=== PATIENT | female | born 1965 | race Hispanic/Latino ===

== ENCOUNTER 2019-07-19 20:02 | Emergency (ER) | payer SELFPAY ==
[2019-07-19 21:01] LABS: Absolute Lymphocytes (CBC) 2.6 K/uL (0.7-4.9); Basophils % 0.7 % (0-1.3); Hematocrit 42.4 % (36.0-45.0); Lymphocytes % 30.1 % (15.3-44.8); MPV 8.6 fL (7.6-11.3)
[2019-07-19 21:28] LABS: Albumin 3.7 g/dL (3.4-5.0); Bilirubin Direct 0.1 mg/dL (0-0.2); Bilirubin Total 0.5 mg/dL (0.2-1.0); Potassium 3.9 mmol/L (3.5-5.1); Protein, Total 7.8 g/dL (6.4-8.2)
[2019-07-19] MEDS ORDERED: SIMETHICONE 80 MG TAB ONE (21:49)
[2019-07-19 22:10] LABS: Urine Blood NEGATIVE (NEG); Urine Glucose NEGATIVE (NEG); Urine Protein NEGATIVE (NEG)
[2019-07-19 23:02] LABS: Urine Bacteria <20 /HPF (<20); Urine RBC NONE SEEN /HPF (NONE SEEN)
[2019-07-19 23:03] LABS: Urine Culture Reflex Order NOT NEEDED
--- NOTE | 2019-07-19 23:20 | EDPHYS ---
Physician Documentation [facility] Name: Yuridia Wynne Age: 54 yrs Sex: Female : 1965 Arrival Date: 07/19/2019 Time: 20:07 Bed 8 Private MD: ED Physician Jeancarlos Carbajal HPI: 07/19 21:30 This 54 yrs old Female presents to ER via Ambulatory with complaints of Abdominal Pain, snw Back Pain. 21:30 The patient presents with abdominal pain in the upper abdomen. Onset: The snw symptoms/episode began/occurred suddenly, today. The symptoms radiate to back. Associated signs and symptoms: Pertinent positives: nausea, Pertinent negatives: anorexia, blood in stools, fever, vomiting, vomiting blood. The symptoms are described as crampy. Severity of pain: At its worst the pain was moderate. The patient has not experienced similar symptoms in the past. The patient has not recently seen a physician. Hx of cholecystectomy. 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 - Coronavirus screen:: The patient has NOT traveled to [place] in the past 14 days. - Social history:: Smoking status: Patient denies any tobacco usage or history of. - Ebola Screening: : No symptoms or risks identified at this time. ROS: 21:29 Constitutional: Negative for fever, chills, and weight loss, Eyes: Negative for injury, snw pain, redness, and discharge, ENT: Negative for injury, pain, and discharge, Neck: Negative for injury, pain, and swelling, Cardiovascular: Negative for chest pain, palpitations, and edema, Respiratory: Negative for shortness of breath, cough, wheezing, and pleuritic chest pain, : Negative for injury, bleeding, discharge, and swelling, MS/Extremity: Negative for injury and deformity, Skin: Negative for injury, rash, and discoloration, Neuro: Negative for headache, weakness, numbness, tingling, and seizure, Psych: Negative for depression, anxiety, suicide ideation, homicidal ideation, and hallucinations. 21:29 Abdomen/GI: Positive for abdominal pain, nausea, Negative for vomiting, diarrhea, hematemesis, black/tarry stool. 21:29 Back: Positive for radiated pain. Exam: 21:29 Constitutional: This is a well developed, well nourished patient who is awake, alert, snw and in no acute distress. Head/Face: Normocephalic, atraumatic. Eyes: Pupils equal round and reactive to light, extra-ocular motions intact. Lids and lashes normal. Conjunctiva and sclera are non-icteric and not injected. Cornea within normal limits. Periorbital areas with no swelling, redness, or edema. ENT: Nares patent. No nasal discharge, no septal abnormalities noted. Tympanic membranes are normal and external auditory canals are clear. Oropharynx with no redness, swelling, or masses, exudates, or evidence of obstruction, uvula midline. Mucous membranes moist. Neck: Trachea midline, no thyromegaly or masses palpated, and no cervical lymphadenopathy. Supple, full range of motion without nuchal rigidity, or vertebral point tenderness. No Meningismus. Chest/axilla: Normal chest wall appearance and motion. Nontender with no deformity. No lesions are appreciated. Cardiovascular: Regular rate and rhythm with a normal S1 and S2. No gallops, murmurs, or rubs. Normal PMI, no JVD. No pulse deficits. Respiratory: Lungs have equal breath sounds bilaterally, clear to auscultation and percussion. No rales, rhonchi or wheezes noted. No increased work of breathing, no retractions or nasal flaring. Back: No spinal tenderness. No costovertebral tenderness. Full range of motion. Skin: Warm, dry with normal turgor. Normal color with no rashes, no lesions, and no evidence of cellulitis. MS/ Extremity: Pulses equal, no cyanosis. Neurovascular intact. Full, normal range of motion. Neuro: Awake and alert, GCS 15, oriented to person, place, time, and situation. Cranial nerves II-XII grossly intact. Motor strength 5/5 in all extremities. Sensory grossly intact. Cerebellar exam normal. Normal gait. Psych: Awake, alert, with orientation to person, place and time. Behavior, mood, and affect are within normal limits. 21:29 Abdomen/GI: Inspection: obese Bowel sounds: normal, Palpation: mild abdominal tenderness, in the epigastric area. Vital Signs: 20:21 BP 157 / 94; Pulse 96; Resp 18; Temp 97.4; Pulse Ox 100% ; Weight 117.93 kg; Height 5 ea ft. 4 in. (162.56 cm); Pain 10/10; 21:50 BP 149 / 79 RA (auto/lg); Pulse 76; Pulse Ox 100% on R/A; jp3 22:33 BP 134 / 88; Pulse 78; Resp 18; Pulse Ox 98% ; ea 23:30 BP 128 / 90; Pulse 76; Resp 18; Temp 97.6; Pulse Ox 100% on R/A; ea 20:21 Body Mass Index 44.63 (117.93 kg, 162.56 cm) ea MDM: 20:51 Patient medically screened. [place] 23:46 Data reviewed: vital signs, nurses notes, lab test result(s). Data interpreted: Pulse snw oximetry: on room air is 98 %. Interpretation: normal. Counseling: I had a detailed discussion with the patient and/or guardian regarding: the historical points, exam findings, and any diagnostic results supporting the discharge/admit diagnosis, the presence of at least one elevated blood pressure reading (>120/80) during this emergency department visit, lab results, the need for outpatient follow up, for definitive care, to return to the emergency department if symptoms worsen or persist or if there are any questions or concerns that arise at home. Physician consultation:. Special discussion: Based on the patient's Hx, exam, and Dx evaluation, there is no indication for emergent surgery or inpatient Tx. It is understood by the patient/guardian that if the Sx's persist or worsen they need to return immediately for re-evaluation. I have referred the patient to see his PCP for further evaluation of high blood pressure. Based on the history and exam findings, there is no indication for further emergent testing or inpatient evaluation. I discussed with the patient/guardian the need to see the dragger out for further evaluation of the symptoms. I discussed with the patient/guardian the need to see the primary care provider for further evaluation of the symptoms. 07/19 20:30 Order name: Basic Metabolic Panel; Complete Time: 21:32 ea 07/19 20:30 Order name: CBC with Diff; Complete Time: 21:06 07/19 20:30 Order name: Creatinine for Radiology; Complete Time: 21:27 07/19 20:30 Order name: Hepatic Function; Complete Time: 21:32 07/19 20:30 Order name: Lipase; Complete Time: 21:32 07/19 21:19 Order name: Urine Culture [facility] 07/19 20:30 Order name: IV Saline Lock; Complete Time: 20:51 07/19 20:30 Order name: Labs collected and sent; Complete Time: 20:51 07/19 21:19 Order name: Urine Microscopic Only; Complete Time: 23:05 [facility] 07/19 21:19 Order name: Urine Dipstick-Ancillary (obtain specimen); Complete Time: 21:47 [facility] 07/19 21:48 Order name: Urine Dipstick--Ancillary (enter results); Complete Time: 22:14 cm6 Administered Medications: 21:47 Drug: Simethicone 240 mg Route: PO; jb4 23:00 Follow up: Response: No adverse reaction ea 23:24 Drug: CarafATE 1 grams Route: PO; ea 23:40 Follow up: Response: No adverse reaction ea Disposition: 07/20 08:57 Co-signature as Attending Physician, Jeancarlos Carbajal MD I agree with the assessment and [facility] plan of care. Disposition: 07/19/19 23:20 Discharged to Home. Impression: Upper abdominal pain, unspecified. - Condition is Stable. - Discharge Instructions: Abdominal Pain, Adult, Biliary Colic, Adult, Fat and Cholesterol Restricted Diet, Hypertension, Rehydration, Adult. - Prescriptions for Bentyl 20 mg Oral Tablet - take 1 tablet by ORAL route every 6 hours As needed; 20 tablet. Nexium 20 mg Oral Capsule - take 1 capsule by ORAL route once daily; 20 capsule. promethazine 25 mg Oral Tablet - take 1 tablet by ORAL route every 6 hours As needed; 20 tablet. - Work release form, Medication Reconciliation Form, Thank You Letter, Antibiotic Education, Prescription Opioid Use form. - Follow up: Emergency Department; When: As needed; Reason: Worsening of condition. Follow up: Private Physician; When: 1 - 2 days; Reason: Recheck today's complaints, Continuance of care, Re-evaluation by your physician. Signatures: Dispatcher [employer] Jeancarlos iDa MD MD cha Therrien Thais, ALL ROUND LOGGER-C ALL ROUND LOGGER-Csnw Francisco Munoz, RN RN jb4 Cindy Son, RN RN ea Corrections: (The following items were deleted from the chart) 00:02 07/19 23:20 07/19/2019 23:20 Discharged to Home. Impression: Upper abdominal pain, ea unspecified. Condition is Stable. Forms are Medication Reconciliation Form, Thank You Letter, Antibiotic Education, Prescription Opioid Use. Follow up: Emergency Department; When: As needed; Reason: Worsening of condition. Follow up: Private Physician; When: 1 - 2 days; Reason: Recheck today's complaints, Continuance of care, Re-evaluation by your physician. snw
--- NOTE | 2019-07-19 23:20 | ER ---
Nurse's Notes [facility] Name: Yuridia Wynne Age: 54 yrs Sex: Female : 1965 Arrival Date: 07/19/2019 Time: 20:07 Bed 8 Private MD: Diagnosis: Upper abdominal pain, unspecified Presentation: 07/19 20:18 Presenting complaint: Patient states: Reports she started having epigastric pain that ea travels to the back at around 5 PM. Pt reports nausea. Transition of care: patient was not received from another setting of care. Onset of symptoms was July 19, 2019. Risk Assessment: Do you want to hurt yourself or someone else? Patient reports no desire to harm self or others. Initial Sepsis Screen: Does the patient meet any 2 criteria? No. Patient's initial sepsis screen is negative. Does the patient have a suspected source of infection? No. Patient's initial sepsis screen is negative. Care prior to arrival: None. 20:18 Method Of Arrival: Ambulatory ea 20:18 Acuity: MEDINA 3 ea Triage Assessment: 20:23 General: Appears uncomfortable, Behavior is calm, cooperative, appropriate for age. ea Pain: Complains of pain in epigastric area Pain radiates to thoracic area. Neuro: Level of Consciousness is awake, alert, obeys commands, Oriented to person, place, time. Cardiovascular: Patient's skin is warm and dry. Respiratory: Airway is patent Respiratory effort is even, unlabored, Respiratory pattern is regular, symmetrical. 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 - Coronavirus screen:: The patient has NOT traveled to [place] in the past 14 days. - Social history:: Smoking status: Patient denies any tobacco usage or history of. - Ebola Screening: : No symptoms or risks identified at this time. Screenin:19 Abuse screen: Denies threats or abuse. Nutritional screening: No deficits noted. ea Tuberculosis screening: No symptoms or risk factors identified. Fall Risk None identified. Assessment: 20:41 General: Appears uncomfortable. Pain: Complains of pain in epigastric area. Neuro: ea Level of Consciousness is awake, alert, obeys commands, Oriented to person, place, time, situation. Cardiovascular: Patient's skin is warm and dry. Respiratory: Airway is patent Respiratory effort is even, unlabored, Respiratory pattern is regular, symmetrical. GI: Bowel sounds present X 4 quads. Abd is soft and non tender X 4 quads. Derm: Skin is pink, warm \T\ dry. 21:45 Reassessment: Patient appears in no apparent distress at this time. Patient and/or jb4 family updated on plan of care and expected duration. Pain level reassessed. Patient is alert, oriented x 3, equal unlabored respirations, skin warm/dry/pink. 23:55 Reassessment: Patient and/or family updated on plan of care and expected duration. Pain ea level reassessed. Patient is alert, oriented x 3, equal unlabored respirations, skin warm/dry/pink. Discharge instruction given to patient, verbalized the understanding of instruction. Pt left ED ambulatory accompanied by family, pt tolerating well. Vital Signs: 20:21 BP 157 / 94; Pulse 96; Resp 18; Temp 97.4; Pulse Ox 100% ; Weight 117.93 kg; Height 5 ea ft. 4 in. (162.56 cm); Pain 10/10; 21:50 BP 149 / 79 RA (auto/lg); Pulse 76; Pulse Ox 100% on R/A; jp3 22:33 BP 134 / 88; Pulse 78; Resp 18; Pulse Ox 98% ; ea 23:30 BP 128 / 90; Pulse 76; Resp 18; Temp 97.6; Pulse Ox 100% on R/A; ea 20:21 Body Mass Index 44.63 (117.93 kg, 162.56 cm) ea ED Course: 20:07 Patient arrived in ED. jg7 20:18 Cindy Son, RN is Primary Nurse. ea 20:19 Triage completed. ea 20:22 Arm band placed on right wrist. Patient placed in an exam room, on a stretcher, on ea pulse oximetry. 20:22 Patient has correct armband on for positive identification. Bed in low position. Call ea light in reach. Side rails up X 1. 20:50 [facility]ais Patel [facility]C [facility]. snw 20:50 Jeancarlos Carbajal MD is Attending Physician. snw 20:50 Inserted saline lock: 20 gauge in left antecubital area, using aseptic technique. Blood jp3 collected. Patient maintains SpO2 saturation greater than 95% on room air. 20:50 Initial lab(s) drawn, by me, sent to lab. jp3 21:47 Urine Microscopic Only Sent. jp3 21:47 Urine Culture Sent. jp3 23:23 No provider procedures requiring assistance completed. ea 23:45 IV discontinued, intact, bleeding controlled, No redness/swelling at site. Pressure ea dressing applied. Administered Medications: 21:47 Drug: Simethicone 240 mg Route: PO; jb4 23:00 Follow up: Response: No adverse reaction ea 23:24 Drug: CarafATE 1 grams Route: PO; ea 23:40 Follow up: Response: No adverse reaction ea Outcome: 23:20 Discharge ordered by . snw 23:55 Discharged to home ambulatory, with family. ea 23:55 Condition: stable 23:55 Discharge instructions given to patient, Instructed on discharge instructions, follow up and referral plans. medication usage, Demonstrated understanding of instructions, follow-up care, medications, Prescriptions given X 3. 07/20 00:02 Patient left the ED. ea Signatures: Thais Patel FNP-C FNP-Csnw Francisco Munoz, RN RN jb4 Cindy Son, ROOSEVELT RN Karson Cuevas jp3 Mirta Dayg7
[2019-07-19] MEDS ORDERED: SUCRALFATE 1 GM TABLET ONE (23:25)
[2019-07-20 01:51] VITALS: BP 134/88; O2SAT 98
== END 2019-07-20 00:02 | disposition home or self-care (01) ==
LOC: ER 20:02
DX: E03.9 Hypothyroidism, unspecified (principal)
CPT/HCPCS: 36415; 80048; 80076; 81003; 81015; 83690; 85025; 87086; 87088; 99284

== ENCOUNTER 2023-05-24 03:21 | Inpatient (IN) | payer OTHER, SELFPAY ==
--- OUTSIDE RECORDS SUMMARY | 2023-05-24 03:24 | XMS REPORT | Continuity of Care Document ---
Author Name Unknown Address [address] [facility] [place] [address] [facility] thconnect Address [address] [facility] [place] [address] Care Team Providers Care Sales Floor Manager Name Role Phone [address] Primary Care Physician KARIN Trotter K.HPaz Attending Clinician Eli Love MD, Karin K.HPaz Attending Clinician [phone] Doctor Unassigned, [place] Attending Clinician U navailable Allergies, Adverse Reactions, Alerts Allergy Name Allergy Type Status Severity Reaction(s) Onset Date Inactive Date Treating Clinician Comments Source NO KNOWN ALLERGIE S Drug Class Active [facility] Social History Social Habit Start Date Stop Date Quantity Comments Source Exposure to SARS-CoV-2 (event) 2022-09-14 00:00:00 2022-09-24 14:16:00 Not sure [facility] Sex Assigned At 1965 00:00:00 1965 00:00:00 [facility] Smoking Status Start Date Stop Date Source Tobacco smoking consumption unknown [facility] Medications Ordered Medication Name Filled Medication Name Start Date Stop Date Current Medication? Ordering Clinician Indication Dosage Frequency Signature (SIG) Comments Components Source hydroCHLORO thiazide 12.5 mg capsule 09-24 14:45: 53 Yes [id number] 12.5mg Take 1 capsule by mouth in the morning. [facility] levothyroxi ne (UNITHROID) 75 mcg tablet 09-24 14:45: 53 Yes [id number] 75ug Take 1 tablet by mouth every morning. [facility] escitalopra m oxalate 10 mg tablet 09-24 14:45: 53 Yes [id number] 10mg Take 1 tablet by mouth in the morning. [facility] lisinopriL 10 mg tablet 09-24 14:45: 53 Yes [id number] 10mg Take 1 tablet by mouth in the morning. [facility] hydroCHLORO thiazide 12.5 mg capsule 09-24 14:45: 53 Yes [id number] 12.5mg Take 1 capsule by mouth in the morning. [facility] levothyroxi ne (UNITHROID) 75 mcg tablet 09-24 14:45: 53 Yes [id number] 75ug Take 1 tablet by mouth every morning. [facility] escitalopra m oxalate 10 mg tablet 09-24 14:45: 53 Yes [id number] 10mg Take 1 tablet by mouth in the morning. [facility] lisinopriL 10 mg tablet 09-24 14:45: 53 Yes [id number] 10mg Take 1 tablet by mouth in the morning. [facility] metFORMIN 500 mg tablet 08-06 00:00: 00 Yes [id number] 500mg Take 1 tablet by mouth in the morning. [facility] metFORMIN 500 mg tablet 08-06 00:00: 00 Yes [id number] 500mg Take 1 tablet by mouth in the morning. [facility] Vital Signs Vital Name Observation Time Observation Value Comments S marcos Systolic blood pressure 2022-09-24 19:40:00 111 mm[Hg] [facility] Diastolic blood pressure 2022-09-24 19:40:00 59 mm[Hg] [facility] Heart rate 2022-09-24 19:40:00 88 /min [facility] Body height 2022-09-24 19:40:00 162.6 cm [facility] Body weight 2022-09-24 19:40:00 120.112 kg [facility] BMI 2022-09-24 19:40:00 45.45 kg/m2 [facility] Oxygen saturation in Arterial blood by Pulse oximetry 2022-09-24 19:40:00 95 /min [facility] Procedures Procedure Date / Time Performed Performing Clinicia n Source ASSIGNMENT OF BENEFITS 2022-09-24 19:20:40 Docto r Unassigned, [place] [facility] Encounters Start Date/Time End Date/Time Encounter Type Admission Type Attending [facility] Facility Care Department Encounter ID Source 2023-04-16 08:03:33 2023-04-16 08:03:[address] [facility] [id number] Feliciano Bhatti 2023-02-27 11:01:43 2023-02-27 11:01:[address] [facility] [id number] Feliciano Richards Davy 2023-02-13 08:56:53 2023-02-13 08:56:[address] [facility] [id number] Feliciano Richards Davy 2022-12-25 08:25:14 2022-12-25 08:25:[address] [facility] [id number] Feliciano Richards Davy 2022-12-12 14:07:38 2022-12-12 14:07:[address] [facility] [id number] Feliciano Richards Davy 2022-12-11 13:31:49 2022-12-11 13:31:[address] [facility] [id number] Feliciano Bhatti 2022-09-25 14:30:00 2022-09-25 14:30:00 Outpatient KARIN SIMMS [facility] [id number] [facility] 2022-09-24 14:30:00 2022-09-24 15:23:40 Office Visit Karin Love [facility] [id number] [facility] 2022-09-24 14:30:00 2022-09-24 15:23:40 Outpatient KARIN SIMMS [facility] [id number] [facility] 2022-09-24 00:00:00 2022-09-24 00:00:00 Orders Only Doctor Unassigned, [place] [facility] [id number] [facility] 2022-08-11 09:46:59 2022-08-11 09:46:59 Outpatient [facility] [id number] Feliciano Bhatti 2022-08-04 11:47:16 2022-08-04 11:47:16 Outpatient [facility] [id number] Feliciano Richards Davy 2022-07-30 14:58:59 2022-07-30 14:58:59 Outpatient [facility] [id number] Feliciano Bhatti 2022-07-28 08:34:44 2022-07-28 08:34:44 Outpatient [facility] [id number] Feliciano Bhatti 2022-06-18 15:47:46 2022-06-18 15:47:46 Outpatient [facility] [id number] Feliciano Bhatti 2022-05-14 16:55:57 2022-05-14 16:55:57 Outpatient [facility] [id number] Feliciano Bhatti 2022-05-06 16:04:30 2022-05-06 16:04:30 Outpatient [facility] [id number] Feliciano Bhatti Results Test Description Test Time Test Comments Results Result Co mments Source HEMOGLOBIN [id number] 05:40:43* Test Item Value Reference Range Interpretation Comme nts HEMOGLOBIN A1c (test code = 21055) 6.6 % 4.2-5.6 H [employer] GUIDELINES FOR HGB A1C: PREDIABETES/INCREASED RISK . . . . . . . 5.7-6.4% DIAGNOSIS OF DIABETES . . . . . . . . . >=6.5% WITH CONFIRMATION OR APPROPRIATE SYMPTOMS NOTE: ASSAY MAY BE AFFECTED BY HEMOGLOBINOPATHIES (SICKLE CELL ANEMIA, S-C DISEASE, OTHERS) OR ARTIFICIALLY LOWERED BY DECREASED RED CELL SURVIVAL (HEMOLYTIC ANEMIAS, BLOOD LOSS, ETC.). CONSIDER ALTERNATE TESTING OR LABORATORY CONSULTATION. UNLESS OTHERWISE INDICATED, ALL TESTING PERFORMED AT [facility] [address] [place] [address] IMPROVEMENT ENGINEER: KENNY FOWLER M.D. CLIA NUMBER [id number] [facility] [place]. [id number] TSH, THIRD [id number] 04:49:30* Test Item Value Reference Range Interpretation Comme nts TSH, THIRD GENERATION (test code = 2821) 2.390 UIU/ML 0.400-4.100 LIPID [id number] 04:45:56* Test Item Value Reference Range Interpretation Comme nts CHOLESTEROL (test code = 2210) 135 MG/DL <200 TRIGLYCERIDES (test code = 2232) 103 MG/DL <150 HDL CHOLESTEROL (test code = 2220) 38 MG/DL >39 L CALC LDL CHOL (test code = 2237) 78 MG/DL <100 NOTE: CALCULATED LDL IS BASED ON KAYLYNN-FIGUEREDO METHOD WHICHINCLUDES ADJUSTABLE TRIGLYCERIDE:VLDL CHOLESTEROL RATIO.THIS FACTOR VARIES BY MEASURED TRIGLYCERIDE AND NON-HDLCHOLESTEROL CONCENTRATIONS WITH INCREASED CALCULATED LDL SEENIN HIGHER TRIGLYCERIDE OR LOWER NON-HDL SPECIMENS. FOR MOREINFORMATION, SEE CLIENT ANNOUNCEMENT AT [email or web address] /CalcLDL-[email or web address] RISK RATIO LDL/HDL (test code = 2238) 2.05 RATIO <3.22 COMPREHENSIVE METABOLIC [id number] 04:45:56* Test Item Value Reference Range Interpretation Comme nts GLUCOSE (test code = 2217) 134 MG/DL 70-99 H BUN (test code = 2208) 12 MG/DL 6-20 CREATININE (test code = 2214) 0.83 MG/DL 0.60-1.30 eGFR (2020 CKD-EPI) (test co de = 99122) 83 ML/MIN/1.73 >60 CALC BUN/CREAT (test code = 2235) 14 RATIO 6-28 SODIUM (test code = 2231) 141 MEQ/L 133-146 POTASSIUM (test code = 2228) 4.4 MEQ/L 3.5-5.4 CHLORIDE (test code = 2215) 102 MEQ/L 95-107 CARBON DIOXIDE (test code = 2206) 28 MEQ/L 19-31 CALCIUM (test code = 2209) 9.2 MG/DL 8.5-10.5 PROTEIN, TOTAL (test code = 222) 7.6 G/DL 6.1-8.3 ALBUMIN (test code = 2201) 4.5 G/DL 3.5-5.2 CALC GLOBULIN (test code = 2240) 3.1 G/DL 1.9-3.7 CALC A/G RATIO (test code = 2234) 1.5 RATIO 1.0-2.6 BILIRUBIN, TOTAL (test code = 2207) 0.5 MG/DL <=1.2 ALKALINE PHOSPHATASE (test code = 2204) 109 U/L 40-136 AST (test code = 2218) 21 U/L 9-40 ALT (test code = 2219) 21 U/L 5-40 NOTE:2022-12-31 06:03:51* Test Item Value Reference Range Interpretation Comme nts NOTE: (test code = 998) (NOTE) IN ACCORDANCE [facility] FEDERAL GUIDELINES REQUIRING ALL VERBAL REQUESTS FOR LABORATORY TESTS TO BE ACCOMPANIED BY WRITTEN AUTHORIZATION WITHIN 30 DAYS OF THIS REQUEST, PLEASE SIGN BELOW AND RETURN A COPY OF THIS REPORT BY FAX TO THE LABORATORY SCANNING DEPARTMENT AT [phone]. PHYSICIAN'S SIGNATURE DATE UNLESS OTHERWISE INDICATED, ALL TESTING PERFORMED AT [facility] [address] [place] [address] IMPROVEMENT ENGINEER: KENNY FOWLER M.D. CLIA NUMBER [id number] [facility] [place]. [id number] TSH, THIRD [id number] 02:05:53* Test Item Value Reference Range Interpretation Comme nts TSH, THIRD GENERATION (test code = 2821) 4.810 UIU/ML 0.400-4.100 H LIPID [id number] 05:14:23* Test Item Value Reference Range Interpretation Comme nts CHOLESTEROL (test code = 2210) 138 MG/DL <200 TRIGLYCERIDES (test code = 2232) 150 MG/DL <150 H HDL CHOLESTEROL (test code = 2220) 37 MG/DL >39 L CALC LDL CHOL (test code = 2237) 76 MG/DL <100 NOTE: CALCULATED LDL IS BASED ON KAYLYNN-FIGUEREDO METHOD WHICHINCLUDES ADJUSTABLE TRIGLYCERIDE:VLDL CHOLESTEROL RATIO.THIS FACTOR VARIES BY MEASURED TRIGLYCERIDE AND NON-HDLCHOLESTEROL CONCENTRATIONS WITH INCREASED CALCULATED LDL SEENIN HIGHER TRIGLYCERIDE OR LOWER NON-HDL SPECIMENS. FOR MOREINFORMATION, SEE CLIENT ANNOUNCEMENT AT [email or web address] /CalcLDL-C RISK RATIO LDL/HDL (test code = 223) 2.05 RATIO <3.22 COMPREHENSIVE METABOLIC [id number] 05:14:23* Test Item Value Reference Range Interpretation Comme nts GLUCOSE (test code = 7) 125 MG/DL 70-99 H BUN (test code = 2207) 13 MG/DL 6-20 CREATININE (test code = 2213) 0.88 MG/DL 0.60-1.30 eGFR (2020 CKD-EPI) (test code = 59413) 77 ML/MIN/1.73 >60 CALC BUN/CREAT (test code = 2234) 15 RATIO 6-28 SODIUM (test code = 2230) 141 MEQ/L 133-146 POTASSIUM (test code = 2227) 5.0 MEQ/L 3.5-5.4 CHLORIDE (test code = 2214) 103 MEQ/L 95-107 CARBON DIOXIDE (test code = 2205) 28 MEQ/L 19-31 CALCIUM (test code = 2208) 9.3 MG/DL 8.5-10.5 PROTEIN, TOTAL (test code = 2228) 6.9 G/DL 6.1-8.3 ALBUMIN (test code = 2201) 4.2 G/DL 3.5-5.2 CALC GLOBULIN (test code = 2240) 2.7 G/DL 1.9-3.7 CALC A/G RATIO (test code = 223) 1.6 RATIO 1.0-2.6 BILIRUBIN, TOTAL (test code = 2206) 0.3 MG/DL See_Comment [Automated me ssage] The system which generated this result transmitted reference range: <=1.2. The reference range was not used to interpret this result as normal/abnormal. ALKALINE PHOSPHATASE (test code = 2203) 95 U/L 40-136 AST (test code = 2218) 19 U/L 9-40 ALT (test code = 2219) 21 U/L 5-40 UNLESS OTHERWISE INDICATED, ALL TESTING PERFORMED AT [facility] [address] [place] [id number] IMPROVEMENT ENGINEER: KENNY FOWLER M.D. CLIA NUMBER [id number] [facility] [place]. [id number] HEMOGLOBIN [id number] 02:49:55* Test Item Value Reference Range Interpretation Comme [facility] HEMOGLOBIN A1c (test code = 74413) 6.6 % 4.2-5.6 H [employer] S [employer]IATION GUIDELINES FOR HGB A1C: PREDIABETES/INCREASED RISK . . . . . . . 5.7-6.4% DIAGNOSIS OF DIABETES . . . . . . . . . >=6.5% WITH CONFIRMATION OR APPROPRIATE SYMPTOMS NOTE: ASSAY MAY BE AFFECTED BY HEMOGLOBINOPATHIES (SICKLE CELL ANEMIA, S-C DISEASE, OTHERS) OR ARTIFICIALLY LOWERED BY DECREASED RED CELL SURVIVAL (HEMOLYTIC ANEMIAS, BLOOD LOSS, ETC.). CONSIDER ALTERNATE TESTING OR LABORATORY CONSULTATION. LISA (ANTI-NUCLEAR AB) WITH REFLEX [id number] 23:47:01* Test Item Value Reference Range Interpretation Comme [facility] ANTI-NUCLEAR ANTIBODIES (test code = 3506) NEGATIVE NEGATIVE Methodology is I ndirect Immunofluorescent Assay (IFA) with a titering system using [id number] cells (Hep2 cells transfected with SS-A/Ro). LISA PATTERN (REPORTED TITER) (test code = 75723) SEE BELOW HOMOGENEOUS (test code = 60746) NEGATIVE TITER NEGATIVE SPECKLED (test code = 072133) NEGATIVE TITER NEGATIVE DENSE FINE SPECKLED (test code = 35944) NEGATIVE TITER NEGATIVE CENTROMERE (test code = 198199) NEGATIVE TITER NEGATIVE COARSE SPECKLED (test code = 406583) NEGATIVE TITER NEGATIVE DISCRETE NUCLEAR DOTS (test code = 533889) NEGATIVE TITER NEGATIVE NUCLEOLAR (test code = 917710) NEGATIVE TITER NEGATIVE NUCLEAR MEMBRANE (test code = 068259) NEGATIVE TITER NEGATIVE CYTO. RETICULAR (NOHEMI) (test code = 038410) NEGATIVE NEGATIVE COMMENTS (test code = 614141) NONE METHOD (test code = 07693) (NOTE) NOTE: EFFECTIVE 01/06/2022, METHOD IS TRANSITIONED TO THE [employer] IFA PLATFORM. THE METHOD INCLUDES A SCREENTHRESHOLD OF 1:80, DIGITIZED AND COMPUTER ALGORITHM-ASSISTEDINTER PRETATION OF TITERS AND DIGITAL PATTERNS, AND HEp-2 CELLLINE SUBSTRATE. ADDITIONAL UNUSUAL PATTERNS WILL BE GIVEN ASCOMMENTS. FOR MORE INFORMATION, SEE [email or web address] [facility] has important pathology staff changes effective 07/30/2022. New pathology staff will provide uninterrupted, excellent patient care and clinical consultation. See URL: [email or web address]. UNLESS OTHERWISE INDICATED, ALL TESTING PERFORMED AT [facility] [address] [place] [address] IMPROVEMENT ENGINEER: ISSA GOLD M.D. IA NUMBER [id number] [facility] [place]. [id number] TSH, THIRD [id number] 06:11:51* Test Item Value Reference Range Interpretation Comme nts TSH, THIRD GENERATION (test code = 2821) 5.760 UIU/ML 0.400-4.100 H HEMOGLOBIN [id number] 04:55:40* Test Item Value Reference Range Interpretation Comme nts HEMOGLOBIN A1c (test code = 48581) 6.6 % 4.2-5.6 H [employer] S [employer]OCIATION GUIDELINES FOR HGB A1C: PREDIABETES/INCREASED RISK . . . . . . . 5.7-6.4% DIAGNOSIS OF DIABETES . . . . . . . . . >=6.5% WITH CONFIRMATION OR APPROPRIATE SYMPTOMS NOTE: ASSAY MAY BE AFFECTED BY HEMOGLOBINOPATHIES (SICKLE CELL ANEMIA, S-C DISEASE, OTHERS) OR ARTIFICIALLY LOWERED BY DECREASED RED CELL SURVIVAL (HEMOLYTIC ANEMIAS, BLOOD LOSS, ETC.). CONSIDER ALTERNATE TESTING OR LABORATORY CONSULTATION. COMPREHENSIVE METABOLIC [id number] 04:32:58* Test Item Value Reference Range Interpretation Comme nts GLUCOSE (test code = 2217) 113 MG/DL 70-99 H BUN (test code = 2208) 15 MG/DL 6-20 CREATININE (test code = 2214) 0.76 MG/DL 0.60-1.30 eGFR (2020 CKD-EPI) (test code = 16692) 92 ML/MIN/1.73 >60 CALC BUN/CREAT (test code = 2235) 20 RATIO 6-28 SODIUM (test code = 2231) 140 MEQ/L 133-146 POTASSIUM (test code = 2228) 4.4 MEQ/L 3.5-5.4 CHLORIDE (test code = 2215) 104 MEQ/L 95-107 CARBON DIOXIDE (test code = 2206) 26 MEQ/L 19-31 CALCIUM (test code = 2209) 9.0 MG/DL 8.5-10.5 PROTEIN, TOTAL (test code = 2229) 7.1 G/DL 6.1-8.3 ALBUMIN (test code = 2201) 4.3 G/DL 3.5-5.2 CALC GLOBULIN (test code = 2240) 2.8 G/DL 1.9-3.7 CALC A/G RATIO (test code = 2234) 1.5 RATIO 1.0-2.6 BILIRUBIN, TOTAL (test code = 2207) 0.4 MG/DL See_Comment [Automated me ssage] The system which generated this result transmitted reference range: <=1.2. The reference range was not used to interpret this result as normal/abnormal. ALKALINE PHOSPHATASE (test code = 2203) 111 U/L 40-136 AST (test code = 2218) 29 U/L 9-40 ALT (test code = 2219) 28 U/L 5-40 LIPID [id number] 04:32:58* Test Item Value Reference Range Interpretation Comme nts CHOLESTEROL (test code = 2210) 157 MG/DL <200 TRIGLYCERIDES (test code = 2232) 194 MG/DL <150 H HDL CHOLESTEROL (test code = 0) 34 MG/DL >39 L CALC LDL CHOL (test code = 2236) 94 MG/DL <100 NOTE: CALCULATED LDL IS BASED ON KAYLYNN-FIGUEREDO METHOD WHICHINCLUDES ADJUSTABLE TRIGLYCERIDE:VLDL CHOLESTEROL RATIO.THIS FACTOR VARIES BY MEASURED TRIGLYCERIDE AND NON-HDLCHOLESTEROL CONCENTRATIONS WITH INCREASED CALCULATED LDL SEENIN HIGHER TRIGLYCERIDE OR LOWER NON-HDL SPECIMENS. FOR MOREINFORMATION, SEE CLIENT ANNOUNCEMENT AT [email or web address] /CalcLDL-C RISK RATIO LDL/HDL (test code = 223) 2.76 RATIO <3.22 FSH + LH [id number] 04:04:37* Test Item Value Reference Range Interpretation Comme nts FOLLICLE STIM HORMONE (test code = 2700) 27.9 IU/L SEE BELOW EXPEC KADEN VALUES FOR FSH FOR FEMALES >17 YEARS MALES FEMALES >=18 YEARS 1.5-12.4 IU/L FOLLICULAR 3.5-12.5 IU/L MID-CYCLE PEAK 4.7-21.5 IU/L LUTEAL PHASE 1.7-7.7 IU/L POSTMENOPAUSAL 25.8-134.8 IU/L LUTEINIZING HORMONE (test code = 2776) 21.5 IU/L SEE BELOW EXPEC KADEN VALUES FOR LH FOR FEMALES >17 YEARS MALES FEMALES >=18 YEARS 1.8-8.6 IU/L FOLLICULAR 2.4-12.6 IU/L MID-CYCLE PEAK 14.0-95.6 IU/L LUTEAL PHASE 1.0-11.4 IU/L POSTMENOPAUSAL 7.7-58.5 IU/L TSH, THIRD [id number] 04:04:37* Test Item Value Reference Range Interpretation Comme nts TSH, THIRD GENERATION (test code = 2821) 2.270 UIU/ML 0.400-4.100 [id number] 04:04:37* Test Item Value Reference Range Interpretation Comme nts ESTRADIOL (test code = 2505) 19.2 PG/ML SEE BELOW Note: Values in the range of 17-25 PG/ML may demonstrate increased imprecision. Clinical correlation is recommended. EXPECTED VALUES FOR ESTRADIOL FOR FEMALES >=18 YEARS FOLLICULAR . . . . . . . . . . . . . PG/ML 12.4-233.0 OVULATION. . . . . . . . . . . . . . PG/ML 41.0-398.0 LUTEAL PHASE . . . . . . . . . . . . PG/ML 22.3-341.0 POSTMENOPAUSAL SUPPLEMENTED/NON-SUPP . PG/ML <138.0/<20.0 NOTE: TO DETERMINE NORMAL VS. SUBNORMAL ESTRADIOL IN POSTMENOPAUSAL FEMALES, CONSIDER ULTRASENSITIVE ESTRADIOL ([facility] ORDER CODE 5678). METHODOLOGY IS [facility] ELECTROCHEMILUMINESCENT IMMUNOASSAY WITH A LIMIT OF DETECTION OF 17 PG/ML. UNLESS OTHERWISE INDICATED, ALL TESTING PER[facility] [address] [place] [address] IMPROVEMENT ENGINEER: ISSA GOLD M.D. CLIA NUMBER [id number] [place]. [id number] CT/NG, NAAT, [id number] 21:39:15* Test Item Value Reference Range Interpretation Comme nts GONORRHEA, NAAT (test code = 54276) NEGATIVE NEGATIVE Note: Testing is performed with [facility] CORT[facility] [employer]0/8800 systems using real-time polymerase chain reaction (PCR) method. CHLAMYDIA, NAAT (test code = 17236) NEGATIVE NEGATIVE Note: Testing is performed with [facility] [facility]ORT[facility] 6800/8800 systems using real-time polymerase chain reaction (PCR) method. UNLESS OTHERWISE INDICATED, ALL TESTING PERFORMED [facility] PATHOLOGY [employer], [facility]. [address] [place] [address] IMPROVEMENT ENGINEER: ISSA GOLD M.D. CLIA NUMBER [id number] [facility] [place]. [id number] HEPATITIS PANEL, [id number] 05:03:26* Test Item Value Reference Range Interpretation Comme nts HEPATITIS A IgM (test code = 09481) NON-REACTIVE NON-REACTIVE HEPATITIS B CORE IgM (test code = 4644) NON-REACTIVE NON-REACTIVE HEPATITIS B SURF AG (test code = 2739) NON-REACTIVE NON-REACTIVE HEPATITIS C ANTIBODY (test code = 4675) NON-REACTIVE NON-REACTIVE INTERPRETATION HEPATITIS A: (test code = 2552) (NOTE) Hepatitis A serology shows no evidence of acute hepatitis A. INTERPRETATION HEPATITIS B: (test code = 65916) (NOTE) Hepatitis B serology shows no evidence of acute hepatitis B andno indication of exposure to hepatitis B virus in the previous dung eight months. INTERPRETATION HEPATITIS C: (test code = 86823) (NOTE) Hepatitis C serology shows no evidence of exposure to hepatitisC virus at this time. It can take up to 12 months after exposure tothe hepatitis C virus for antibodies to become detectable in the blood in certain patients. HIV 1/2 4TH GEN, RFLX [id number] 05:03:26* Test Item Value Reference Range Interpretation Comme nts HIV 1/2 4TH GEN, RFLX CONF ( test code = 3514) NON-REACTIVE NON-REACTIVE [id number] 03:11:00* Test Item Value Reference Range Interpretation Comme nts RPR RESULT (test code = 3501) NON-REACTIVE NON-REACTIVE RPR TITER (test code = 3500) NOT INDIC. TITER NOT INDIC. SCR MAMM BILATERAL EARL CAD [id number] 08:17:39- SCR MAMM BILATERAL EARL CAD DIGITALBILATERAL DIGITAL SCREENING MAMMOGRAM 3D/2D WITH CAD: 02/10/2020 CLINICAL: Asymptomatic. Digital breast tomosynthesis was performed in addition to routine CC and MLO views. Current mammographic images were evaluated by either a Satmetrix M-Vu or a Tufincker CAD (computer aided detection system). No prior exams were available for comparison. There are scattered fibroglandular tissues in both breasts. There is a benign intramammary node in the right breast. There also is a benign calcification in the left breast. No suspicious mass, architectural distortion, malignant type calcification, or lymph node abnormality detected. IMPRESSION: BENIGNThere is no mammographic evidence of malignancy. Resume annual screening mammography in one year. Emerson Lundberg/penlucila:02/17/2020 08:17:39 [employer] Data Warehouse Developer: Carlene Miguel MM, [facility] Mammographyletter sent: BIRADS 1-2 Normal Mammogram BI-RADS: 2 Benign
[2023-05-24] MEDS ORDERED: ONDANSETRON 4 MG/2 ML VIAL ONE (04:18)
[2023-05-24] MEDS ORDERED: FAMOTIDINE 20 MG/2 ML VIAL IV ONE (04:19)
[2023-05-24] MEDS ORDERED: MORPHINE 4 MG/ML SYR ONE (04:19)
[2023-05-24] MEDS ORDERED: NA CHLORIDE 0.9% 1,000 ML ONE ×2 (04:19→10:32)
[2023-05-24 04:23] LABS: Specific Gravity 1.014 (1.005-1.030); Urine Bilirubin NEGATIVE (Negative); Urine Blood Negative (Negative); Urine Clarity Clear (Clear); Urine Color Light-Yellow (Yellow); Urine Glucose NEGATIVE (Negative); Urine Protein NEGATIVE (Negative); Urine Urobilinogen Normal (Normal)
[2023-05-24 04:24] LABS: Absolute Lymphocytes (CBC) 2.2 K/uL (0.7-4.9); Hematocrit 38.4 % (36.0-45.0); Lymphocytes % 19.6 % (15.3-44.8); MCV 83.8 fL (80-100); MPV 8.5 fL (7.6-11.3); Platelets 241 thou/uL (152-406); RBC Red Blood Cell Count 4.58 M/uL (3.86-4.86)
[2023-05-24 04:46] LABS: Albumin 3.3 g/dL (3.4-5.0); Bilirubin Total 0.6 mg/dL (0.2-1.0); Potassium 4.2 mEq/L (3.5-5.1); Protein, Total 7.8 g/dL (6.4-8.2)
[2023-05-24] MEDS ORDERED: PIPERACIL/TAZO 3.375 GM VIAL IV ONE (06:15)
[2023-05-24] MEDS ORDERED: NA CHLORIDE 0.9% 100 ML ONE (06:17)
--- NOTE | 2023-05-24 06:41 | ER ---
Nurse's Notes [facility] Name: Yuridia Wynne Age: 58 yrs Sex: Female : 1965 Arrival Date: 05/24/2023 Time: 03:21 Bed 18 Private MD: Diagnosis: Unspecified acute appendicitis Presentation: 05/24 03:53 Chief complaint: Patient states: mid upper abdominal pain of 10 that radiates to pf1 back,onset 5 days with nausea and having diarrhea x 1 episode,onset yesterday. Coronavirus screen: Vaccine status: Patient reports receiving the 2nd dose of the covid vaccine. Moderna Client denies travel out of the [place] in the last 14 days. Client presents with at least one sign or symptom that may indicate coronavirus-19. Ebola Screen: Patient negative for fever greater than or equal to 101.5 degrees Fahrenheit, and additional compatible Ebola Virus Disease symptoms. Initial Sepsis Screen: Does the patient meet any 2 criteria? No. Patient's initial sepsis screen is negative. Does the patient have a suspected source of infection? No. Patient's initial sepsis screen is negative. Risk Assessment: Do you want to hurt yourself or someone else? Patient reports no desire to harm self or others. 03:53 Method Of Arrival: Ambulatory pf1 03:53 Acuity: MEDINA 3 pf1 Historical: - Allergies: 03:56 No Known Allergies; pf1 - PMHx: 03:56 Hypothyroidism; pf1 03:57 Hypercholesterolemia; Depressive disorder; anxiety; pf1 - PSHx: 03:56 Cholecystectomy; section; pf1 - Immunization history:: Adult Immunizations up to date, Client reports receiving the 2nd dose of the Covid vaccine, Last tetanus immunization: > 10 years ago Flu vaccine is up to date. - Social history:: Smoking status: Patient denies any tobacco usage or history of. Patient uses alcohol, only on a social basis. Patient/guardian denies using street drugs. Screenin:58 [facility] ED Fall Risk Assessment (Adult) History of falling in the last 3 months, pf1 including since admission No falls in past 3 months (0 pts) Confusion or Disorientation No (0 pts) Intoxicated or Sedated No (0 pts) Impaired Gait No (0 pts) Mobility Assist Device Used No (0 pt) Altered Elimination No (0 pt) Score/Fall Risk Level 0 - 2 = Low Risk Oriented to surroundings, Maintained a safe environment, Educated pt \T\ family on fall prevention, incl call for assistance when getting out of bed, Assessed \T\ reinforced patient's understanding of fall precautions, Provided non-skid footwear, Hourly rounding (assess needs \T\ fall precautionary measures) done, Used ambulatory aids as needed (educated on \T\ assisted with), Used gait belt as appropriate. Abuse screen: Denies threats or abuse. Nutritional screening: No deficits noted. Tuberculosis screening: No symptoms or risk factors identified. Assessment: 03:59 General: Appears in no apparent distress. comfortable, obese, well groomed, well pf1 developed, Behavior is calm, cooperative, appropriate for age, quiet. Pain: Complains of pain in back and abdomen Pain currently is 10 out of 10 on a pain scale. Pain began 5 days ago. Neuro: No deficits noted. Level of Consciousness is awake, alert, obeys commands, Oriented to person, place, time, situation. Cardiovascular: No deficits noted. Capillary refill < 3 seconds Patient's skin is warm and dry. Respiratory: No deficits noted. Airway is patent Respiratory effort is even, unlabored, Respiratory pattern is regular, symmetrical. GI: Abdomen is round non-distended, Bowel sounds present X 4 quads. Abd is soft X 4 quads Reports upper abdominal pain, diarrhea, nausea. : No deficits noted. No signs and/or symptoms were reported regarding the genitourinary system. EENT: No deficits noted. No signs and/or symptoms were reported regarding the EENT system. 05:00 Reassessment: Patient appears in no apparent distress at this time. Patient and/or pf1 family updated on plan of care and expected duration. Pain level reassessed. Patient is alert, oriented x 3, equal unlabored respirations, skin warm/dry/pink. Patient states feeling better. Patient states symptoms have improved. 06:00 Reassessment: Patient appears in no apparent distress at this time. Patient and/or pf1 family updated on plan of care and expected duration. Pain level reassessed. Patient is alert, oriented x 3, equal unlabored respirations, skin warm/dry/pink. Patient states feeling better. Patient states symptoms have improved. Vital Signs: 03:53 BP 121 / 67; Pulse 87; Resp 16; Temp 98.5; Pulse Ox 97% on R/A; Weight 117.93 kg; pf1 Height 5 ft. 4 in. ; Pain 10/10; 05:00 BP 106 / 57; Pulse 87; Resp 16; Pulse Ox 97% on R/A; pf1 06:09 BP 117 / 55; Pulse 79; Resp 16; Pulse Ox 95% on R/A; Pain 6/10; pf1 03:53 Body Mass Index 44.63 (117.93 kg, 162.56 cm) pf1 03:53 Pain Scale: Adult pf1 06:09 Pain Scale: Adult pf1 ED Course: 03:26 Patient arrived in ED. gm2 03:53 Destinee Baker is Attending Physician. ci 03:55 Inserted saline lock: 20 gauge in left antecubital area, using aseptic technique. Blood oe collected. 03:56 Triage completed. pf1 03:59 Patient has correct armband on for positive identification. Placed in gown. Bed in low pf1 position. Call light in reach. Side rails up X2. 04:16 CBC with Diff Sent. pf1 04:16 CMP Sent. pf1 04:16 Lipase Sent. pf1 04:16 Urinalysis w/ reflexes Sent. pf1 05:30 No provider procedures requiring assistance completed. IV discontinued, intact, pf1 bleeding controlled, No redness/swelling at site. Pressure dressing applied. 05:32 Inserted saline lock: 22 gauge in right antecubital area, using aseptic technique. pf1 05:44 CT Abd/Pelvis - IV Contrast Only In Process Unspecified. EDMS 06:40 José Miguel Hoff MD is Hospitalizing Provider. ci 07:35 Patient admitted, IV remains in place. rs5 Administered Medications: 04:27 Drug: NS 0.9% IV 1000 ml IV at 1 bolus Per protocol; 1000 mL bolus Route: IV; Rate: 1 pf1 bolus; Site: left antecubital; 05:18 Follow up: Response: No adverse reaction; Marked relief of symptoms pf1 04:27 Drug: Famotidine IVP 20 mg IVP once; dilute with 10 mL 0.9% NaCl; give over 2 minutes pf1 Route: IVP; Site: left antecubital; 05:17 Follow up: Response: No adverse reaction; Marked relief of symptoms; Pain is decreased pf1 04:27 Drug: Ondansetron IVP 4 mg IVP once; over 2 minutes Route: IVP; Site: left antecubital; pf1 05:18 Follow up: Response: No adverse reaction; Marked relief of symptoms pf1 04:27 Drug: morphine IVP or IV 4 mg IVP once over 4 mins Route: IVP; Infused Over: 4 mins; pf1 Site: left antecubital; 05:18 Follow up: Response: No adverse reaction; Marked relief of symptoms; Pain is decreased; pf1 RASS: Alert and Calm (0) 06:27 Drug: Piperacillin-Tazobactam IVPB 3.375 grams IVPB once over 60 mins; (mix in NS 100 pf1 mL) Route: IVPB; Infused Over: 60 mins; Site: right antecubital; Outcome: 06:40 Decision to Hospitalize by Provider. ci 07:35 Patient left the ED. rs5 Signatures: Dispatcher [employer] EDMS Tejas Butler Pamala RN RN pf1 Ralph Whtimore RN RN rs5 Destinee Baker Ginger 2 Corrections: (The following items were deleted from the chart) 03:58 03:56 PMHx: prediabetic (Hypothyroidism); pf1 pf1
--- NOTE | 2023-05-24 06:41 | EDPHYS ---
Physician Documentation [facility] Name: Yuridia Wynne Age: 58 yrs Sex: Female : 1965 Arrival Date: 05/24/2023 Time: 03:21 Bed 18 Private MD: ED Physician Destinee Baker HPI: 05/24 04:39 This 58 yrs old Female presents to ER via Ambulatory with complaints of ci Abdominal Pain, Fever. 04:39 Patient is 58-year-old female who presents to the ED with epigastric/midgastric ci abdominal pain that began about 5 days ago. Pain is sharp, radiates to the left back, no aggravating or relieving factors. Has had some nausea but no vomiting. She endorses 1 episode of nonbloody diarrhea yesterday. Denies urinary symptoms. Endorses subjective fever. Patient has had a cholecystectomy, C-sections and hysterectomy.. Historical: - Allergies: 03:56 No Known Allergies; pf1 - PMHx: 03:56 Hypothyroidism; pf1 03:57 Hypercholesterolemia; Depressive disorder; anxiety; pf1 - PSHx: 03:56 Cholecystectomy; section; pf1 - Immunization history:: Adult Immunizations up to date, Client reports receiving the 2nd dose of the Covid vaccine, Last tetanus immunization: > 10 years ago Flu vaccine is up to date. - Social history:: Smoking status: Patient denies any tobacco usage or history of. Patient uses alcohol, only on a social basis. Patient/guardian denies using street drugs. ROS: 04:39 Constitutional: Positive for fever, ci 04:39 Abdomen/GI: Positive for abdominal pain, nausea, diarrhea, Exam: 04:39 Constitutional: This is a well developed, well nourished patient who is awake, alert, ci and in no acute distress. Head/Face: Normocephalic, atraumatic. Eyes: Pupils equal round and reactive to light, extra-ocular motions intact. Lids and lashes normal. Conjunctiva and sclera are non-icteric and not injected. Cornea within normal limits. Periorbital areas with no swelling, redness, or edema. ENT: Nares patent. No nasal discharge, no septal abnormalities noted. Tympanic membranes are normal and external auditory canals are clear. Oropharynx with no redness, swelling, or masses, exudates, or evidence of obstruction, uvula midline. Mucous membranes moist. Neck: Trachea midline, no thyromegaly or masses palpated, and no cervical lymphadenopathy. Supple, full range of motion without nuchal rigidity, or vertebral point tenderness. No Meningismus. Chest/axilla: Normal chest wall appearance and motion. Nontender with no deformity. No lesions are appreciated. Cardiovascular: Regular rate and rhythm with a normal S1 and S2. No gallops, murmurs, or rubs. Normal PMI, no JVD. No pulse deficits. Respiratory: Lungs have equal breath sounds bilaterally, clear to auscultation and percussion. No rales, rhonchi or wheezes noted. No increased work of breathing, no retractions or nasal flaring. Abdomen/GI: Soft with moderate TTP to periumbilical region and RLQ, with normal bowel sounds. No distension or tympany. No guarding or rebound. Back: No spinal tenderness. No costovertebral tenderness. Full range of motion. Skin: Warm, dry with normal turgor. Normal color with no rashes, no lesions, and no evidence of cellulitis. MS/ Extremity: Pulses equal, no cyanosis. Neurovascular intact. Full, normal range of motion. Neuro: Awake and alert, GCS 15, oriented to person, place, time, and situation. Cranial nerves II-XII grossly intact. Motor strength 5/5 in all extremities. Sensory grossly intact. Cerebellar exam normal. Normal gait. Psych: Awake, alert, with orientation to person, place and time. Behavior, mood, and affect are within normal limits. Vital Signs: 03:53 BP 121 / 67; Pulse 87; Resp 16; Temp 98.5; Pulse Ox 97% on R/A; Weight 117.93 kg; pf1 Height 5 ft. 4 in. ; Pain 10/10; 05:00 BP 106 / 57; Pulse 87; Resp 16; Pulse Ox 97% on R/A; pf1 06:09 BP 117 / 55; Pulse 79; Resp 16; Pulse Ox 95% on R/A; Pain 6/10; pf1 03:53 Body Mass Index 44.63 (117.93 kg, 162.56 cm) pf1 03:53 Pain Scale: Adult pf1 06:09 Pain Scale: Adult pf1 MDM: 03:53 Patient medically screened. ci 04:39 Differential diagnosis: UTI, gastroenteritis, Gastritis, GERD, peptic ulcer, ci pancreatitis, SBO. Historians other than the Patient: Spouse/Significant Other: . Care significantly affected by the following chronic conditions: Hypothyroidism, HLD, depression. Awaiting: labs results, CT scan results. 06:28 Data reviewed: vital signs, nurses notes, lab test result(s). Discussion of test ci interpretation with radiology: I had a discussion with radiology regarding a test interpretation. Imaging concerning for early acute appendicitis.. 06:34 ED course: Gen kyleigh consulted, I spoke with Dr. Colon, plan for surgery today, admit to ci hospitalist. Hospitalist paged x1, no answer. 05/24 04:09 Order name: CBC with Diff; Complete Time: 04:52 ci 05/24 04:09 Order name: CMP; Complete Time: 04:52 ci 05/24 04:09 Order name: Lipase; Complete Time: 04:52 ci 05/24 04:09 Order name: Urinalysis w/ reflexes ci 05/24 04:09 Order name: CT Abd/Pelvis - IV Contrast Only ci 05/24 04:09 Order name: IV Saline Lock; Complete Time: 04:16 ci 05/24 04:09 Order name: Labs collected and sent; Complete Time: 04:16 ci 05/24 04:09 Order name: NPO; Complete Time: 04:27 ci Administered Medications: 04:27 Drug: NS 0.9% IV 1000 ml IV at 1 bolus Per protocol; 1000 mL bolus Route: IV; Rate: 1 pf1 bolus; Site: left antecubital; 05:18 Follow up: Response: No adverse reaction; Marked relief of symptoms pf1 04:27 Drug: Famotidine IVP 20 mg IVP once; dilute with 10 mL 0.9% NaCl; give over 2 minutes pf1 Route: IVP; Site: left antecubital; 05:17 Follow up: Response: No adverse reaction; Marked relief of symptoms; Pain is decreased pf1 04:27 Drug: Ondansetron IVP 4 mg IVP once; over 2 minutes Route: IVP; Site: left antecubital; pf1 05:18 Follow up: Response: No adverse reaction; Marked relief of symptoms pf1 04:27 Drug: morphine IVP or IV 4 mg IVP once over 4 mins Route: IVP; Infused Over: 4 mins; pf1 Site: left antecubital; 05:18 Follow up: Response: No adverse reaction; Marked relief of symptoms; Pain is decreased; pf1 RASS: Alert and Calm (0) 06:27 Drug: Piperacillin-Tazobactam IVPB 3.375 grams IVPB once over 60 mins; (mix in NS 100 pf1 mL) Route: IVPB; Infused Over: 60 mins; Site: right antecubital; Disposition Summary: 05/24/23 06:40 Hospitalization Ordered Notes: Hospitalization Status: Inpatient Admission ci Provider: José Miguel Hoff ci [facility] ci Condition: Stable ci Problem: new ci Symptoms: are unchanged ci Bed/Room Type: Standard ci Room Assignment: ci Diagnosis - Unspecified acute appendicitis ci Forms: - Medication Reconciliation Form ci - SBAR form ci - Leadership Thank You Letter ci Signatures: Dispatcher [employer] Falguni Reyes RN RN pf1 Destinee Baker ci Corrections: (The following items were deleted from the chart) 03:58 03:56 PMHx: prediabetic (Hypothyroidism); pf1 pf1 06:28 04:39 Patient is 58-year-old female who presents to the ED with epigastric abdominal ci pain that began about 5 days ago. Pain is sharp, radiates to the left back, no aggravating or relieving factors. Has had some nausea but no vomiting. She endorses 1 episode of nonbloody diarrhea yesterday. Denies urinary symptoms. Endorses subjective fever. Patient has had a cholecystectomy, C-sections and hysterectomy.. ci 06:29 04:39 Constitutional: This is a well developed, well nourished patient who is awake, ci alert, and in no acute distress. Head/Face: Normocephalic, atraumatic. Eyes: Pupils equal round and reactive to light, extra-ocular motions intact. Lids and lashes normal. Conjunctiva and sclera are non-icteric and not injected. Cornea within normal limits. Periorbital areas with no swelling, redness, or edema. ENT: Nares patent. No nasal discharge, no septal abnormalities noted. Tympanic membranes are normal and external auditory canals are clear. Oropharynx with no redness, swelling, or masses, exudates, or evidence of obstruction, uvula midline. Mucous membranes moist. Neck: Trachea midline, no thyromegaly or masses palpated, and no cervical lymphadenopathy. Supple, full range of motion without nuchal rigidity, or vertebral point tenderness. No Meningismus. Chest/axilla: Normal chest wall appearance and motion. Nontender with no deformity. No lesions are appreciated. Cardiovascular: Regular rate and rhythm with a normal S1 and S2. No gallops, murmurs, or rubs. Normal PMI, no JVD. No pulse deficits. Respiratory: Lungs have equal breath sounds bilaterally, clear to auscultation and percussion. No rales, rhonchi or wheezes noted. No increased work of breathing, no retractions or nasal flaring. Abdomen/GI: Soft with moderate TTP to epigastrium, with normal bowel sounds. No distension or tympany. No guarding or rebound. Back: No spinal tenderness. No costovertebral tenderness. Full range of motion. Skin: Warm, dry with normal turgor. Normal color with no rashes, no lesions, and no evidence of cellulitis. MS/ Extremity: Pulses equal, no cyanosis. Neurovascular intact. Full, normal range of motion. Neuro: Awake and alert, GCS 15, oriented to person, place, time, and situation. Cranial nerves II-XII grossly intact. Motor strength 5/5 in all extremities. Sensory grossly intact. Cerebellar exam normal. Normal gait. Psych: Awake, alert, with orientation to person, place and time. Behavior, mood, and affect are within normal limits. ci 07:09 06:34 ED course: Gen sx consulted, plan for surgery today, admit to hospitalist. ci Hospitalist paged x1, no answer. ci
[2023-05-24] MEDS ORDERED: ONDANSETRON 4 MG/2 ML VIAL IV PRN (07:34)
[2023-05-24] MEDS ORDERED: MORPHINE 2 MG/ML SYR IV PRN (07:34)
[2023-05-24] MEDS ORDERED: SUCCINYLCHOLINE 20 MG/ML (10 ML) IV ONE (07:36)
[2023-05-24] MEDS ORDERED: FENTANYL CITR 100 MCG/2 ML ONE (07:39)
[2023-05-24] MEDS ORDERED: NEOSTIGMINE 1 MG/ML -10 ML VIAL ONE (07:39)
[2023-05-24] MEDS ORDERED: GLYCOPYRROLATE 0.2 MG/ML SYR ONE (07:39)
[2023-05-24] MEDS ORDERED: LIDOCAINE 2% MPF 5 ML VIAL ONE (07:39)
[2023-05-24] MEDS ORDERED: ROCURONIUM 50 MG/5 ML VIAL IV ONE (07:39)
[2023-05-24] MEDS ORDERED: propofoL 200 MG/20 ML VIAL IV ONE (07:39)
[2023-05-24] MEDS ORDERED: MIDAZOLAM HCL 2 MG/2 ML INJ ONE (07:40)
--- NOTE | 2023-05-24 07:46 | P.HP ---
Certification for Inpatient Patient admitted to: Inpatient With expected LOS: <2 Midnights Patient will require the following post-hospital care: None Practitioner: I am a practitioner with admitting privileges, knowledge of patient current condition, hospital course, and medical plan of care. Services: Services provided to patient in accordance with Admission requirements found in Title 42 Section 412.3 of the Code of Federal Regulations Patient History Date of Service: 05/24/23 Reason for admission: Acute appendicitis History of Present Illness: Yuridia Wynne is a 58-year-old female with past medical history hypertension, Diabetes mellitus NIDDM, hyperlipidemia, depression and anxiety who presents to the ED with complaints of diffuse abdominal pain for the last 5 days which is now localized to the right lower quadrant. She has had associated symptoms of nausea and diarrhea but no vomiting. She denies fever, chills, shortness of breath, chest pain, cough. She reports having a cholecystectomy, , and hysterectomy in the past without complication. Dr. Colon was consulted and plans for surgery today. While in the ED she was given IV fluids, Pepcid, Zofran, morphine, and started Zosyn. Initial vitals BP 121 / 67; Pulse 87; Resp 16; Temp 98.5; Pulse Ox 97% on R/A. Laboratory evaluations WBC 11.1, H&H 12.8/38.4, platelets 241, sodium 135, potassium 4.2, serum glucose 146, lipase 30. CT abd/pelvis reports proximal appendix is 1.3 cm in diameter proximal periappendiceal/Pericecal fat stranding visualized, early acute pancreatitis, scattered colonic diverticulosis." Yuridia will be admitted to hospitalist service for further treatment of acute appendicitis. Allergies No Known Allergies Allergy (Unverified 05/24/23 07:54) Home Medications: Escitalopram Oxalate [Lexapro] 1 mg PO DAILY 05/24/23 Levothyroxine [Synthroid] 75 mcg PO [id number] 05/24/23 Lisinopril [Zestril] 10 mg PO DAILY 05/24/23 Metformin HCl [Glucophage*] 5 mg PO DAILY 05/24/23 Review of Systems General: Malaise Eyes: Unremarkable ENT: Unremarkable Respiratory: Unremarkable Cardiovascular: Unremarkable Gastrointestinal: Nausea, Abdominal Pain, Diarrhea Genitourinary: Unremarkable Musculoskeletal: Unremarkable Integumentary: Unremarkable Lymphatics: Unremarkable Physical Examination - Physical Exam General: Alert, In no apparent distress, Oriented x3 HEENT: Atraumatic, Normocephalic, PERRLA Neck: Supple, 2+ carotid pulse no bruit Respiratory: Clear to auscultation bilaterally, Normal air movement Cardiovascular: No edema, Normal pulses, Regular rate/rhythm, Normal S1 S2 Capillary refill: <2 Seconds Gastrointestinal: Normal bowel sounds, Soft and benign Musculoskeletal: No clubbing, No swelling, No contractures, No erythema Integumentary: No rashes, No breakdown, No significant lesion, No tenderness/swelling Neurological: Normal speech, Normal strength at 5/5 x4 extr, Normal tone - Studies Laboratory Data (last 24 hrs) 05/24/23 05/24/23 04:10 04:10 WBC 11.10 H Hgb 12.8 Hct 38.4 Plt Count 241 Sodium 135 L Potassium 4.2 BUN 11 Creatinine 0.88 Glucose 146 H Total Bilirubin 0.6 AST 14 L ALT 23 Alkaline Phosphatase 107 Lipase 30 Assessment and Plan - Plan Assessment and Plan Acute appendicitis Abdominal pain Fluid volume deficit 2/[address] abd/pelvis reports proximal appendix is 1.3 cm in diameter proximal periappendiceal/Pericecal fat stranding visualized, early acute pancreatitis, scattered colonic diverticulosis." Dr Colon consulted- plan for surgery today NPO control pain Zosyn Q12- first dose given in the ED gentle IV fluids Diabetes Mellitus type 2- NIDDM Serum glucose 146 Accucheck with SSI A1C pending hold metformin HLD Anxiety/Depression Continue home medications DVT ppx: SCD for now Full code LOS 2 days Discharge Plan: Home Plan to discharge in: 48 Hours - Advance Directives Does patient have a Living Will: No Does patient have a Durable POA for Healthcare: No Time Spent Managing Pts Care (In Minutes): 55
[2023-05-24] MEDS ORDERED: NA CHLORIDE 0.9% 1,000 ML IV SCH (08:00)
--- NOTE | 2023-05-24 08:03 | P.CNS ---
Date of Consult: 05/24/23 Reason for consult: Abdominal pain History of present illness: Patient is a 58-year-old female comes in with nonspecific diffuse abdominal pain starting 5 days ago associated with nausea and now the pain is localizing to the right lower quadrant. Patient had 1 episode of diarrhea yesterday. Patient denies any sore throat, runny nose, headaches, dizziness, chest pain, fever or chills. Patient denies any dysuria or hematuria. Patient had a colonoscopy a long time ago. She was advised to get a colonoscopy as an outpatient. Review of systems: Otherwise unremarkable Past medical history: Hypertension, prediabetic, hyperlipidemia, depression and anxiety Past surgical history: , hysterectomy, cholecystectomy and left ankle surgery Allergies: None Social history: Patient denies smoking or drinking alcohol Family history: Diabetes, hypertension Vital signs: Stable, afebrile Physical exam: Awake, alert and oriented x 3 Head and neck exam: No neck masses, no JVD, throat clear and neck supple Chest: Clear Heart: S1-S2 Abdomen: Soft, nondistended, positive bowel sounds, positive Rovsing's sign and right lower quadrant tenderness with rebound Extremity: Neurovascular intact, nontender Neuro: Nonfocal Diagnostic data: Slight leukocytosis, CT of the abdomen pelvis consistent with early acute appendicitis as well as appendicolith Assessment: Acute appendicitis Plan/recommendation: Admit, n.p.o., IV fluids, IV antibiotics and to the OR for laparoscopic appendectomy possible open. Patient understands risks, benefits and alternatives and agrees to procedure. CC:
[2023-05-24] MEDS: BUPIVACAINE 0.5% PF 10 ML VIAL ONE ×2 (09:03→09:45)
[2023-05-24] MEDS ORDERED: EPHEDRINE SULF 50 MG/ML VIAL ONE (09:04)
[2023-05-24] MEDS ORDERED: dexAMETHasone 4 MG/ML VIAL ONE (09:33)
[2023-05-24] MEDS ORDERED: Mastisol Adhesive Liq ONE ×3 (09:39→09:40)
[2023-05-24] MEDS ORDERED: HYDROMORPHONE HCL 1 MG/ML INJ IV PRN (09:41)
[2023-05-24] MEDS: NA CHLORIDE 0.9% 1,000 ML IV SCH ×2 (10:00→20:17)
--- NOTE | 2023-05-24 10:11 | P.OP ---
Date of Service: 05/24/23 Preop diagnosis: Acute appendicitis Postop diagnosis: Same with extensive adhesions Procedure performed: Laparoscopic appendectomy and lysis of adhesions Surgeon: Cory Colon MD Network Architect Manager: Nieves Reese Estimated blood loss: Minimal Specimen: Appendix Findings: Acute appendicitis and extensive adhesions Anesthesia: General Complications: None Drains: None Fluids and blood products: Nonapplicable Disposition: Recovery room Operative note: Patient brought to the OR and placed in the supine position. General anesthesia begun. Patient prepped and draped in the usual sterile fashion. Marcaine 0.5% infiltrated locally. 15 blade used to make a 1 cm supraumbilical midline incision. Subcutaneous tissue divided and bleeding controlled cautery. Fascia identified and divided. #1 Vicryl stay suture placed. Peritoneal cavity entered with sharp and blunt dissection. 12 mm trocar placed into the peritoneal cavity under direct vision. Pneumoperitoneum established. 5 mm trocar placed in the left lower quadrant under direct vision. Laparoscopy revealed extensive adhesions to the midline. LigaSure used to perform lysis of adhesion. Approximately 10 minutes were required. Then, another 5 mm trocar placed in the suprapubic region under direct vision. Laparoscopy revealed acute suppurative appendicitis in the right lower quadrant. Endo BRITTANY stapling device used to divide the mesoappendix and the base of the appendix on the cecum. The appendix was retrieved to the umbilicus via Endo Catch bag. Right lower quadrant and pelvis were irrigated and effluent was clear. No evidence of bleeding or bowel injury appreciated. All trocars removed under direct vision. Stay sutures tied to each other to reapproximate the fascial defect. Subcutaneous wounds irrigated and bleeding controlled cautery. 3-0 chromic used to reapproximate subcutaneous tissue and close skin. Sterile dressing applied. Patient awakened and taken to recovery room in good general condition. CC:
[2023-05-24] MEDS: INSULIN REGULAR (HUMAN) 100 UNIT/ML SQ SCH ×3 (11:30→20:17)
[2023-05-24 11:35] VITALS: BMI 44.6
[2023-05-24] MEDS: PIPER TAZO 3.375 GM in NA CHLORIDE 0.9% 100 ML IV SCH ×2 (14:14→21:24)
[2023-05-24] MEDS: HYDROCODONE/APAP 7.5/325 MG TAB PO PRN ×2 (17:19→21:23)
[2023-05-25 03:20] LABS: Absolute Lymphocytes (CBC) 1.6 K/uL (0.7-4.9); Hematocrit 34.4 % (36.0-45.0); Lymphocytes % 15.7 % (15.3-44.8); MCV 84.8 fL (80-100); MPV 8.2 fL (7.6-11.3); Platelets 209 thou/uL (152-406); RBC Red Blood Cell Count 4.05 M/uL (3.86-4.86)
[2023-05-25 03:44] LABS: Magnesium 2.4 mg/dL (1.6-2.4); Phosphorus 3.4 mg/dL (2.5-4.9); Potassium 4.4 mEq/L (3.5-5.1)
[2023-05-25] MEDS: NA CHLORIDE 0.9% 1,000 ML IV SCH (05:13)
[2023-05-25] MEDS: PIPER TAZO 3.375 GM in NA CHLORIDE 0.9% 100 ML IV SCH (05:13)
[2023-05-25] MEDS: HYDROCODONE/APAP 7.5/325 MG TAB PO PRN (05:15)
[2023-05-25] MEDS: INSULIN REGULAR (HUMAN) 100 UNIT/ML SQ SCH (07:30)
--- NOTE | 2023-05-25 08:08 | P.DS ---
Admission Date: 05/24/23 Discharge Date: 05/25/23 Disposition: ROUTINE DISCHARGE Discharge Condition: GOOD Reason for Admission: Acute appendicitis Brief History of Present Illness: Diagnosis Acute appendicitis Abdominal pain Fluid volume deficit 2/2 diarrhea Diabetes Mellitus type 2- NIDDM HLD Anxiety/Depression Hospital Course: Yuridia Wynne is a pleasant 58-year-old female with a past medical history significant for hypertension, Diabetes mellitus NIDDM, hyperlipidemia, depression and anxiety who was admitted to the [facility] on 05/24/2023 for acute appendicitis. Yuridia presented to the ED with complaints of diffuse abdominal pain for 5 days which is now localized to the right lower quadrant. She has had associated symptoms of nausea and diarrhea but no vomiting. CT abd/pelvis reports proximal appendix is 1.3 cm in diameter proximal periappendiceal/Pericecal fat stranding visualized, early acute pancreatitis, scattered colonic diverticulosis." While in the ED Zosyn was started and Dr. Colon was consulted with plans to go to surgery. She has tolerated the surgical procedure well, pain is well- controlled, she is tolerating p.o. diet, she is urinating without difficulty, she is ambulating independently, and is hemodynamically stable. On 05/25/2023, Yuridia was seen on morning rounds and deemed medically stable for discharge. Yuridia was discharged with instructions to schedule follow-up appointments with Dr. Colon and her PCP. Yuridia was provided prescriptions for tramadol and ciprofloxacin. The patient and family members were given the opportunity to ask questions and reported no further questions. Furthermore, all questions were answered to the best of my ability. A copy of this discharge summary will be sent to the above providers to facilitate continuity of care. Today, I personally spent 55 minutes with Yuridia, of which greater than 50% of the time was spent in patient education, counseling, and coordination of care as described above. Vital Signs/Physical Exam: Temp Pulse Resp BP Pulse Ox 97.1 F 84 16 102/58 L 91 05/25/23 04:00 05/25/23 04:00 05/25/23 06:15 05/25/23 04:00 05/25/23 06:15 Laboratory Data at Discharge: WBC 10.00 thou/uL (4.3-10.9) 05/25/23 02:56 Hgb 11.4 g/dL (12.0-15.0) L D 05/25/23 02:56 Hct 34.4 % (36.0-45.0) L 05/25/23 02:56 Plt Count 209 thou/uL (152-406) 05/25/23 02:56 Sodium 138 mEq/L (136-145) 05/25/23 02:56 Potassium 4.4 mEq/L (3.5-5.1) 05/25/23 02:56 BUN 10 mg/dL (7-18) 05/25/23 02:56 Creatinine 0.86 mg/dL (0.55-1.02) 05/25/23 02:56 Glucose 125 mg/dL (74-106) H 05/25/23 02:56 Phosphorus 3.4 mg/dL (2.5-4.9) 05/25/23 02:56 Magnesium 2.4 mg/dL (1.6-2.4) 05/25/23 02:56 Total Bilirubin 0.6 mg/dL (0.2-1.0) 05/24/23 04:10 AST 14 U/L (15-37) L 05/24/23 04:10 ALT 23 U/L (13-56) 05/24/23 04:10 Alkaline Phosphatase 107 U/L (45-117) 05/24/23 04:10 Lipase 30 U/L (13-75) 05/24/23 04:10 Home Medications: Atorvastatin Calcium 2 mg PO DAILY 05/24/23 Escitalopram Oxalate [Lexapro] 1 mg PO DAILY 05/24/23 Levothyroxine [Synthroid*] 75 mcg PO [id number] 05/24/23 Lisinopril [Zestril] 10 mg PO DAILY 05/24/23 Metformin HCl [Glucophage*] 5 mg PO DAILY 05/24/23 Ciprofloxacin HCl [Cipro 500 MG Tablet] 500 mg PO BID 7 Days #14 tab 05/25/23 traMADol HCL [Ultram] 50 mg PO Q6H PRN 3 Days #15 tab 05/25/23 New Medications: Ciprofloxacin HCl [Cipro 500 MG Tablet] 500 mg PO BID 7 Days #14 tab traMADol HCL [Ultram] 50 mg PO Q6H PRN 3 Days #15 tab PRN Reason: Pain Physician Discharge Instructions: Physical Exam General: Alert, In no apparent distress, Oriented x3 HEENT: Atraumatic, Normocephalic, PERRLA Neck: Supple, 2+ carotid pulse no bruit Respiratory: Clear to auscultation bilaterally, Normal air movement Cardiovascular: No edema, Normal pulses, Regular rate/rhythm, Normal S1 S2 Capillary refill: <2 Seconds Gastrointestinal: Normal bowel sounds, Soft and benign Musculoskeletal: No clubbing, No swelling, No contractures, No erythema Integumentary: No rashes, No breakdown, No significant lesion, No tenderness/swelling Neurological: Normal speech, Normal strength at 5/5 x4 extr, Normal tone Discharge instructions: Remove outer dressing in a.m. and shower Keep Steri-Strips on at all times Incentive spirometry as instructed Resume home meds and diet Activity as tolerated, no heavy lifting Follow-up my office 1 week, call for appointment Antibiotics and pain medicine per the hospitalist service Diet: ADA Activity: No lifting more than 10 lbs Followup: OOT,OOT [Primary Care Provider] - Cory Colon MD [ACTIVE - CAN ADMIT] - 06/03/23 (call to verify apt time.) Time spent managing pt's care (in minutes): 55
--- NOTE | 2023-05-25 08:11 | PN ---
Date of Progress Note: 05/25/2023 Subjective: The patient is awake, alert. No complaint. Pain is much better. Objective: Vital Signs: Stable. Afebrile. Abdomen: Benign. Laboratory Data: White count is normal. Assessment: Status post laparoscopic appendectomy for acute appendicitis. Plan: Discharge instructions given. The patient cleared from Surgery for discharge. Plan of care d iscussed with Dr. Rm. The patient is to follow up with me in 1 week. /MODL Voice ID: [id number] Report ID: [id number]
[2023-05-25 09:27] VITALS: O2SAT 91
[2023-05-25 10:20] VITALS: BP 105/53; TEMP 97.7
--- NOTE | 2023-05-25 10:51 | RAD REPORT ---
EXAM DESCRIPTION: CT - Abdomen Pelvis W Contrast - 05/24/2023 7:22 am CLINICAL HISTORY: The patient is 58 years old and is Female; ABD PAIN TECHNIQUE: Axial computed tomography images of the abdomen and pelvis with intravenous contrast. S agittal and coronal reformatted images were created and reviewed. This CT exam was performed using one or more of the following dose reduction techniques: automated exposure control, adjustment of t he mA and/or kV according to patient size, and/or use of iterative reconstruction technique. COMPARISON: No relevant prior studies available. FINDINGS: Lung bases: Unremarkable. No mass. No consolidation. ABDOMEN: Liver: Unremarkable. No mass. Gallbladder and bile ducts: Cholecystectomy without biliary dilatation. Pancreas: No findings to suggest acute pancreatitis. No mass visualized. No ductal dilation. Spleen: Unremarkable. No splenomegaly. Adrenals: Unremarkable. No mass. Kidneys and ureters: Unremarkable. No solid mass. No hydronephrosis. Stomach and bowel: Scattered colonic diverticulosis. No small bowel dilatation or obstruction. Stomach is not well distended. No mucosal thickening. PELVIS: Appendix: There is an appendicolith at the appendiceal base. The proximal appendix is 1.3 cm in d iameter. Proximal periappendiceal/pericecal fat stranding visualized. Bladder: Unremarkable. No mass. Reproductive: Hysterectomy. No adnexal mass. ABDOMEN and PELVIS: Intraperitoneal space: No free air or abscess. No significant fluid collection. Bones/joints: L2 hemangioma. Degenerative disc disease L2-3. Multilevel degenerative facet arthro shira in the lumbar spine. No acute fracture. No dislocation. Soft tissues: Small bilateral inguinal hernias containing fat only. Vasculature: Unremarkable. No abdominal aortic aneurysm. Lymph nodes: No pathologically enlarged lymph nodes. IMPRESSION: 1. Early acute appendicitis. 2. Scattered colonic diverticulosis. 3. Additional non-emergent findings as above. THIS REPORT CONTAINS FINDINGS THAT MAY BE CRITICAL TO PATIENT CARE: The findings were verbally discus sed via telephone conference with Dr. Destinee Baker 6:05 AM central time May 24, 2023. T he results were acknowledged and understood. Electronically signed by: Tova Avila MD 05/24/2023 06:05 AM MASTER CARPENTER Due to temporary technical issues with the PACS/Fluency reporting system, reports are being signed by the in house radiologists without review as a courtesy to insure prompt reporting. The interpreting radiologist is fully responsible for the content of the report.
== END 2023-05-25 10:25 | disposition home or self-care (01) | DRG 397 ==
LOC: ER 03:21 → ERHOLD 07:34 → 2ND 09:48
PROVIDERS: ADMIT Internal Medicine Sleep Medicine; ATTEND Internal Medicine Sleep Medicine
PROC: 0DTJ4ZZ Resection of Appendix, Percutaneous Endoscopic Approach (ICD-10-PCS; principal; 2023-05-24 08:00)
DX: K35.80 Unspecified acute appendicitis (principal); K85.90 Acute pancreatitis without necrosis or infection, unspecified; K66.0 Peritoneal adhesions (postprocedural) (postinfection); I10 Essential (primary) hypertension; E11.9 Type 2 diabetes mellitus without complications; E78.5 Hyperlipidemia, unspecified; R19.7 Diarrhea, unspecified; F41.8 Other specified anxiety disorders; E03.9 Hypothyroidism, unspecified; K57.30 Diverticulosis of large intestine without perforation or abscess without bleeding
CPT/HCPCS: 36415; 74177; 80048; 80053; 81003; 82947; 83036; 83690; 83735; 84100; 85025; 88304; 94010; 99284; J1100; J2001; J2250; J2405; J2543; J2704; J2710; J3010; J7030; Q9967

== ENCOUNTER → 2023-06-11 | Emergency (ER) | payer OTHER ==
[~2023-06-11] MED LIST: DICYCLOMINE HCL 10 MG CAP ONE; FAMOTIDINE 20 MG/2 ML VIAL IV ONE; FENTANYL CITR 100 MCG/2 ML ONE; MORPHINE 4 MG/ML SYR ONE; NA CHLORIDE 0.9% 1,000 ML ONE; ONDANSETRON 4 MG/2 ML VIAL ONE
--- OUTSIDE RECORDS SUMMARY | 2023-06-11 18:47 | XMS REPORT | Continuity of Care Document ---
Author Name Unknown Address [address] [facility] [address] [place] [address] [facility] Address [address] [facility] [address] [place] [address] Care Team Providers Care Collector Name Role Phone [address] Primary Care Physician Junior Nunez, KARIN K.HPaz Attending Clinician Eli Love MD, Sendil K.H. Attending Clinician [phone] Doctor Unassigned, [place] Attending Clinician U navailable Allergies, Adverse Reactions, Alerts Allergy Name Allergy Type Status Severity Reaction(s) Onset Date Inactive Date Treating Clinician Comments Source NO KNOWN ALLERGIE S Drug Class Active [facility] Social History Social Habit Start Date Stop Date Quantity Comments Source Exposure to SARS-CoV-2 (event) 2022-09-14 00:00:00 2022-09-24 14:16:00 Not sure [facility] Sex Assigned At 1965 00:00:00 1965 00:00:00 [facility] Smoking Status Start Date Stop Date Source Tobacco smoking consumption unknown [facility] Medications Ordered Medication Name Filled Medication Name Start Date Stop Date Current Medication? Ordering Clinician Indication Dosage Frequency Signature (SIG) Comments Components Source hydroCHLORO thiazide 12.5 mg capsule 09-24 14:45: 53 Yes [id number] 12.5mg Take 1 capsule by mouth in the morning. [facility] levothyroxi ne (UNITHROID) 75 mcg tablet 09-24 14:45: 53 Yes [id number] 75ug Take 1 tablet by mouth every morning. [facility] escitalopra m oxalate 10 mg tablet 09-24 14:45: 53 Yes [id number] 10mg Take 1 tablet by mouth in the morning. [facility] lisinopriL 10 mg tablet 09-24 14:45: 53 Yes [id number] 10mg Take 1 tablet by mouth in the morning. [facility] hydroCHLORO thiazide 12.5 mg capsule 09-24 14:45: 53 Yes [id number] 12.5mg Take 1 capsule by mouth in the morning. [facility] levothyroxi ne (UNITHROID) 75 mcg tablet 09-24 14:45: 53 Yes [id number] 75ug Take 1 tablet by mouth every morning. [facility] escitalopra m oxalate 10 mg tablet 09-24 14:45: 53 Yes [id number] 10mg Take 1 tablet by mouth in the morning. [facility] lisinopriL 10 mg tablet 09-24 14:45: 53 Yes [id number] 10mg Take 1 tablet by mouth in the morning. [facility] metFORMIN 500 mg tablet 08-06 00:00: 00 Yes [id number] 500mg Take 1 tablet by mouth in the morning. [facility] metFORMIN 500 mg tablet 08-06 00:00: 00 Yes [id number] 500mg Take 1 tablet by mouth in the morning. [facility] Vital Signs Vital Name Observation Time Observation Value Comments S marcos Systolic blood pressure 2022-09-24 19:40:00 111 mm[Hg] [facility] Diastolic blood pressure 2022-09-24 19:40:00 59 mm[Hg] [facility] Heart rate 2022-09-24 19:40:00 88 /min [facility] Body height 2022-09-24 19:40:00 162.6 cm [facility] Body weight 2022-09-24 19:40:00 120.112 kg [facility] BMI 2022-09-24 19:40:00 45.45 kg/m2 [facility] Oxygen saturation in Arterial blood by Pulse oximetry 2022-09-24 19:40:00 95 /min [facility] Procedures Procedure Date / Time Performed Performing Clinicia n Source ASSIGNMENT OF BENEFITS 2022-09-24 19:20:40 Docto r Unassigned, [place] [facility] Encounters Start Date/Time End Date/Time Encounter Type Admission Type Attending [facility] Facility Care Department Encounter ID Source 2023-04-16 08:03:33 2023-04-16 08:03:33 Outpatient [facility] [id number] Feliciano Bhatti 2023-02-27 11:01:43 2023-02-27 11:01:43 Outpatient [facility] [id number] Feliciano Bhatti 2023-02-13 08:56:53 2023-02-13 08:56:53 Outpatient [facility] [id number] Feliciano Bhatti 2022-12-25 08:25:14 2022-12-25 08:25:14 Outpatient [facility] [id number] Feliciano Bhatti 2022-12-12 14:07:38 2022-12-12 14:07:38 Outpatient [facility] [id number] Feliciano Bhatti 2022-12-11 13:31:49 2022-12-11 13:31:49 Outpatient [facility] [id number] Feliciano Bahtti 2022-09-25 14:30:00 2022-09-25 14:30:00 Outpatient KARIN SIMMS [facility] [id number] [facility] 2022-09-24 14:30:00 2022-09-24 15:23:40 Office Visit Karin Love [facility] [id number] [facility] 2022-09-24 14:30:00 2022-09-24 15:23:40 Outpatient KARIN SIMMS [facility] [id number] [facility] 2022-09-24 00:00:00 2022-09-24 00:00:00 Orders Only Doctor Unassigned, [place] [facility] [id number] [facility] 2022-08-11 09:46:59 2022-08-11 09:46:59 Outpatient [facility] [id number] Feliciano Bhatti 2022-08-04 11:47:16 2022-08-04 11:47:16 Outpatient [facility] [id number] Feliciano Bhatti 2022-07-30 14:58:59 2022-07-30 14:58:59 Outpatient [facility] [id number] Feliciano Bhatti 2022-07-28 08:34:44 2022-07-28 08:34:44 Outpatient [facility] [id number] Feliciano Bhatit 2022-06-18 15:47:46 2022-06-18 15:47:46 Outpatient [facility] [id number] Feliciano Bhatti 2022-05-14 16:55:57 2022-05-14 16:55:57 Outpatient [facility] [id number] Feliciano Bhatti 2022-05-06 16:04:30 2022-05-06 16:04:30 Outpatient [facility] [id number] Feliciano Bhatti Results Test Description Test Time Test Comments Results Result Co mments Source HEMOGLOBIN [id number] 05:40:43* Test Item Value Reference Range Interpretation Comme nts HEMOGLOBIN A1c (test code = 36278) 6.6 % 4.2-5.6 H [employer] GUIDELINES FOR HGB A1C: [...] TESTING PERFORMED AT [facility] [address] [place] [address] BUSINESS UNIT CONTROLLER: KENNY FOWLER M.D. CLIA NUMBER [id number] [facility] [place]. [id number] TSH, THIRD [id number] 04:49:30* Test Item Value Reference Range Interpretation Comme nts TSH, THIRD GENERATION (test code = 2821) 2.390 UIU/ML 0.400-4.100 LIPID [id number] 04:45:56* Test Item Value Reference Range Interpretation [...] SPECIMENS. FOR MOREINFORMATION, SEE CLIENT ANNOUNCEMENT AT [email or web address] /[email or web address] RISK RATIO LDL/HDL (test code = 2238) 2.05 RATIO <3.22 COMPREHENSIVE METABOLIC [id number] 04:45:56* Test Item Value Reference Range Interpretation Comme nts GLUCOSE (test code = 2217) 134 MG/DL 70-99 H BUN (test code = 2208) 12 MG/DL 6-20 CREATININE (test code = 2214) 0.83 MG/DL 0.60-1.30 eGFR (2020 CKD-EPI) (test co de = 05760) 83 ML/MIN/1.73 >60 CALC BUN/CREAT (test code = 2235) 14 RATIO 6-28 SODIUM (test code = 2231) 141 MEQ/L 133-146 POTASSIUM (test code = 2228) 4.4 MEQ/L 3.5-5.4 CHLORIDE (test code = 2215) 102 MEQ/L 95-107 CARBON DIOXIDE (test code = 2206) 28 MEQ/L 19-31 CALCIUM (test code = 2209) 9.2 MG/DL 8.5-10.5 PROTEIN, TOTAL (test code = 2229) 7.6 G/DL 6.1-8.3 ALBUMIN (test code = [...] (test code = 998) (NOTE) IN ACCORDANCE [facility] FEDERAL GUIDELINES REQUIRING ALL VERBAL REQUESTS FOR LABORATORY TESTS TO BE ACCOMPANIED BY WRITTEN AUTHORIZATION WITHIN 30 DAYS OF THIS REQUEST, PLEASE SIGN BELOW AND RETURN A COPY OF THIS REPORT BY FAX TO THE LABORATORY SCANNING DEPARTMENT AT [phone]. PHYSICIAN'S SIGNATURE DATE UNLESS OTHERWISE INDICATED, ALL TESTING PERFORMED AT [facility] [address] [place] [address] BUSINESS UNIT CONTROLLER: KENNY FOWLER M.D. CLIA NUMBER [id number] [facility] [place]. [id number] TSH, THIRD [id number] 02:05:53* Test Item Value Reference Range Interpretation Comme nts TSH, THIRD GENERATION (test code = 2821) 4.810 UIU/ML 0.400-4.100 H LIPID [id number] 05:14:23* Test Item Value Reference Range Interpretation [...] SPECIMENS. FOR MOREINFORMATION, SEE CLIENT ANNOUNCEMENT AT [email or web address] /CalcLDL-C RISK RATIO LDL/HDL (test code = 2237) 2.05 RATIO <3.22 COMPREHENSIVE METABOLIC [id number] 05:14:23* Test Item Value Reference Range Interpretation Comme nts GLUCOSE (test code = 2216) 125 MG/DL 70-99 H BUN (test code = 2207) 13 MG/DL 6-20 CREATININE (test code = 2213) 0.88 MG/DL 0.60-1.30 eGFR (2020 CKD-EPI) (test code = ) 77 ML/MIN/1.73 >60 CALC BUN/CREAT (test code [...] 6.9 G/DL 6.1-8.3 ALBUMIN (test code = 2200) 4.2 G/DL 3.5-5.2 CALC GLOBULIN (test code = 2240) 2.7 G/DL 1.9-3.7 CALC A/G RATIO (test code = 2233) 1.6 RATIO 1.0-2.6 BILIRUBIN, TOTAL (test code [...] TESTING PERFORMED AT [facility] [address] [place] [address] BUSINESS UNIT CONTROLLER: KENNY FOWLER M.D. CLIA NUMBER [id number] [facility] [place]. [id number] HEMOGLOBIN [id number] 02:49:55* Test Item Value Reference Range Interpretation Comme [facility] HEMOGLOBIN A1c (test code = 35951) 6.6 % 4.2-5.6 H [employer] GUIDELINES FOR HGB A1C: [...] LABORATORY CONSULTATION. LISA (ANTI-NUCLEAR AB) WITH REFLEX [id number] 23:47:01* Test Item Value Reference Range Interpretation Comme nts ANTI-NUCLEAR ANTIBODIES (test code = 3506) NEGATIVE NEGATIVE Methodology is I ndirect Immunofluorescent Assay (IFA) with a titering system using [id number] cells (Hep2 cells transfected with SS-A/Ro). LISA PATTERN (REPORTED TITER) (test code = 49054) SEE BELOW HOMOGENEOUS (test code = 48787) NEGATIVE TITER NEGATIVE SPECKLED (test code = 148758) NEGATIVE TITER NEGATIVE DENSE FINE SPECKLED (test code = 66309) NEGATIVE TITER NEGATIVE CENTROMERE (test code = 001668) NEGATIVE TITER NEGATIVE COARSE SPECKLED (test code = 805928) NEGATIVE TITER NEGATIVE DISCRETE NUCLEAR DOTS (test code = 257432) NEGATIVE TITER NEGATIVE NUCLEOLAR (test code = 332068) NEGATIVE TITER NEGATIVE NUCLEAR MEMBRANE (test code = 112436) NEGATIVE TITER NEGATIVE CYTO. RETICULAR (NOHEMI) (test code = 232948) NEGATIVE NEGATIVE COMMENTS (test code = 838168) NONE METHOD (test code = 96315) (NOTE) NOTE: EFFECTIVE 01/06/2022, METHOD IS TRANSITIONED TO THE [employer] IFA PLATFORM. THE METHOD INCLUDES A SCREENTHRESHOLD OF 1:80, DIGITIZED AND COMPUTER ALGORITHM-ASSISTEDINTER PRETATION OF TITERS AND DIGITAL PATTERNS, AND HEp-2 CELLLINE SUBSTRATE. ADDITIONAL UNUSUAL PATTERNS WILL BE GIVEN ASCOMMENTS. FOR MORE INFORMATION, SEE [email or web address]-Za [facility]bar [facility] has important pathology staff changes effective 07/30/2022. New pathology staff will provide uninterrupted, excellent patient care and clinical consultation. See URL: [email or web address]. UNLESS OTHERWISE INDICATED, ALL TESTING PERFORMED AT [facility] [address] [place] [address] BUSINESS UNIT CONTROLLER: ISSA GOLD M.D. CLIA NUMBER [id number] [facility] [place]. [id number] TSH, THIRD [id number] 06:11:51* Test Item Value Reference Range Interpretation Comme [facility] TSH, THIRD GENERATION (test code = 2821) 5.760 UIU/ML 0.400-4.100 H HEMOGLOBIN [id number] 04:55:40* Test Item Value Reference Range Interpretation Comme [facility] HEMOGLOBIN A1c (test code = 97681) 6.6 % 4.2-5.6 H [employer] GUIDELINES FOR HGB A1C: [...] ALTERNATE TESTING OR LABORATORY CONSULTATION. COMPREHENSIVE METABOLIC [id number] 04:32:58* Test Item Value Reference Range Interpretation Comme nts GLUCOSE (test code = 2217) 113 MG/DL 70-99 H BUN (test code = 2208) 15 MG/DL 6-20 CREATININE (test code = 2214) 0.76 MG/DL 0.60-1.30 eGFR (2020 CKD-EPI) (test code = 06558) 92 ML/MIN/1.73 >60 CALC BUN/CREAT (test code [...] code = 2219) 28 U/L 5-40 LIPID [id number] 04:32:58* Test Item Value Reference Range Interpretation Comme nts CHOLESTEROL (test code = 2209) 157 MG/DL <200 TRIGLYCERIDES (test code = 223) 194 MG/DL <150 H HDL CHOLESTEROL (test code = 2219) 34 MG/DL >39 L CALC LDL CHOL (test code = 2236) 94 MG/DL <100 NOTE: CALCULATED LDL IS BASED ON KAYLYNN-FIGUEREDO METHOD WHICHINCLUDES ADJUSTABLE TRIGLYCERIDE:VLDL CHOLESTEROL RATIO.THIS FACTOR VARIES BY MEASURED TRIGLYCERIDE AND NON-HDLCHOLESTEROL CONCENTRATIONS WITH INCREASED CALCULATED LDL SEENIN HIGHER TRIGLYCERIDE OR LOWER NON-HDL SPECIMENS. FOR MOREINFORMATION, SEE CLIENT ANNOUNCEMENT AT [email or web address]://[email or web address] /CalcLDL-C RISK RATIO LDL/HDL (test code = 2237) 2.76 RATIO <3.22 FSH + LH [id number] 04:04:37* Test Item Value Reference Range Interpretation [...] 1.0-11.4 IU/L POSTMENOPAUSAL 7.7-58.5 IU/L TSH, THIRD [id number] 04:04:37* Test Item Value Reference Range Interpretation Comme nts TSH, THIRD GENERATION (test code = 2821) 2.270 UIU/ML 0.400-4.100 [id number] 04:04:37* Test Item Value Reference Range Interpretation [...] ESTRADIOL IN POSTMENOPAUSAL FEMALES, CONSIDER ULTRASENSITIVE ESTRADIOL ([facility] ORDER CODE 5678). METHODOLOGY IS PAOLA CORTNEY ELECTROCHEMILUMINESCENT IMMUNOASSAY WITH A LIMIT OF DETECTION OF 17 PG/ML. UNLESS OTHERWISE INDICATED, [facility] [address] [place] [address] BUSINESS UNIT CONTROLLER: ISSA GOLD M.D. CLIA NUMBER [id number] [place] [id number] CT/NG, NAAT, [id number] 21:39:15* Test Item Value Reference Range Interpretation Comme nts GONORRHEA, NAAT (test code = 96829) NEGATIVE NEGATIVE Note: Testing is performed with [employer]0/8800 systems using real-time polymerase chain reaction (PCR) method. CHLAMYDIA, NAAT (test code = 43839) NEGATIVE NEGATIVE Note: Testing is performed with Paola CORTNEY 6800/8800 systems using real-time polymerase chain reaction (PCR) method. UNLESS OTHERWISE INDICATED, ALL TESTING PERFORMED [facility] [address] [place] [address] BUSINESS UNIT CONTROLLER: ISSA GOLD M.D. IA NUMBER [id number] [facility] [place]. [id number] HEPATITIS PANEL, [id number] 05:03:26* Test Item Value Reference Range Interpretation Comme nts HEPATITIS A IgM (test code = 91990) NON-REACTIVE NON-REACTIVE HEPATITIS B CORE IgM (test code = 4644) NON-REACTIVE NON-REACTIVE HEPATITIS B SURF AG (test code = 2739) NON-REACTIVE NON-REACTIVE HEPATITIS C ANTIBODY (test code = 4675) NON-REACTIVE NON-REACTIVE INTERPRETATION HEPATITIS A: (test code = 2552) (NOTE) Hepatitis A serology shows no evidence of acute hepatitis A. INTERPRETATION HEPATITIS B: (test code = 13697) (NOTE) Hepatitis B serology shows no evidence of acute hepatitis B andno indication of exposure to hepatitis B virus in the previous dung eight months. INTERPRETATION HEPATITIS C: (test code = 10561) (NOTE) Hepatitis C serology shows no evidence of exposure to hepatitisC virus at this time. It can take up to 12 months after exposure tothe hepatitis C virus for antibodies to become detectable in the blood in certain patients. HIV 1/2 4TH GEN, RFLX [id number] 05:03:26* Test Item Value Reference Range Interpretation Comme nts HIV 1/2 4TH GEN, RFLX CONF ( test code = 3514) NON-REACTIVE NON-REACTIVE [id number] 03:11:00* Test Item Value Reference Range Interpretation Comme nts RPR RESULT (test code = 3501) NON-REACTIVE NON-REACTIVE RPR TITER (test code = 3500) NOT INDIC. TITER NOT INDIC. SCR MAMM BILATERAL EARL CAD [id number] 08:17:39- SCR MAMM BILATERAL EARL CAD DIGITALBILATERAL DIGITAL SCREENING MAMMOGRAM 3D/2D WITH CAD: 02/10/2020 CLINICAL: Asymptomatic. Digital breast tomosynthesis was performed in addition to routine CC and MLO views. Current mammographic images were evaluated by either a [employer] M-Vu or a [employer] ImageChecker CAD (computer aided detection system). No prior [...] annual screening mammography in one year. Emerson Radford M.D. et/penrad:02/17/2020 08:17:39 Archives Specialist: Carlene Miguel MM, [facility] Mammographyletter sent: BIRADS 1-2 Normal Mammogram BI-RADS: 2 Benign
[2023-06-11 21:04] LABS: Absolute Lymphocytes (CBC) 0.8 K/uL (0.7-4.9); Hematocrit 43.2 % (36.0-45.0); Lymphocytes % 8.2 % (15.3-44.8); MCV 84.2 fL (80-100); MPV 8.6 fL (7.6-11.3); Platelets 264 thou/uL (152-406); RBC Red Blood Cell Count 5.13 M/uL (3.86-4.86)
[2023-06-11 21:28] LABS: Albumin 3.6 g/dL (3.4-5.0); Bilirubin Total 0.6 mg/dL (0.2-1.0); Potassium 5.3 mEq/L (3.5-5.1); Protein, Total 8.4 g/dL (6.4-8.2)
[2023-06-11 21:40] LABS: C.diff Antigen/Toxin Ag neg : Tox neg (NEG : NEG)
--- NOTE | 2023-06-11 22:36 | RAD REPORT ---
EXAM DESCRIPTION: CT - Abdomen Pelvis W Contrast - 06/11/2023 10:00 pm CLINICAL HISTORY: ABD PAIN COMPARISON: Abdomen Pelvis W Contrast dated 05/24/2023 TECHNIQUE: Thin cut axial CT imaging of the abdomen and pelvis was performed following intravenous a dministration of 97 mL Isovue 300. Multiplanar reformats were generated and reviewed. All CT scans are performed using dose optimization technique as appropriate and may include automated exposure control or mA/KV adjustment according to patient size. FINDINGS: No suspicious findings in the lung bases. The liver, spleen, adrenal glands, and pancreas show no suspicious findings. Gallbladder was surgical ly removed. Symmetric renal function is seen with no hydronephrosis or suspicious renal mass. Fluid opacification throughout nondistended small bowel and proximal large bowel. Minimal mucosal hyp erenhancement along the proximal jejunum. No bowel wall thickening or evidence of obstruction. No demetrice e air, free fluid or inflammatory stranding. No hernia, mass or bulky lymphadenopathy. The urinary bl adder is without significant finding. No suspicious bony findings. IMPRESSION: Nonspecific fluid opacification throughout small bowel and proximal large bowel. Finding s may relate to diarrheal state or mild enterocolitis. No other acute intra-abdominal process.
--- NOTE | 2023-06-11 22:54 | EDPHYS ---
Physician Documentation [facility] Name: Yuridia Wynne Age: 58 yrs Sex: Female : 1965 Arrival Date: 06/11/2023 Time: 18:43 Bed 19 Private MD: ED Physician Joe Luna HPI: 06/11 20:23 This 58 yrs old Female presents to ER via Wheelchair with complaints of rt Abdominal Pain - POST SURGEY, Nausea. 20:23 Patient is about 2 weeks out from an appendectomy, reportedly uncomplicated. The rt patient saw her surgeon about 1 week ago for routine postop, was having some mild diarrhea at that time, no other issues. Today, patient developed an epigastric pain that is nonradiating with worsening diarrhea. She has associated nausea. Denies hematemesis, hematochezia. Denies other acute complaints at this time, symptoms are moderate in severity, no other aggravating or alleviating factors. Historical: - Allergies: 19:51 No Known Allergies; km - Home Meds: 19:51 levothyroxine 50 mcg tab 1 tab once daily [Active]; km8 - PMHx: 19:51 Anxiety; depressive disorder; Hypercholesterolemia; Hypothyroidism; km8 - PSHx: 19:51 section; Cholecystectomy; Appendectomy; km8 - Immunization history:: Client reports receiving the 2nd dose of the Covid vaccine, Flu vaccine is up to date. - Social history:: Smoking status: Patient denies any tobacco usage or history of. Patient/guardian denies using alcohol, street drugs. - Family history:: not pertinent. ROS: 20:23 Constitutional: Negative for fever, chills, and weight loss, Cardiovascular: Negative rt for chest pain, palpitations, and edema, Respiratory: Negative for shortness of breath, cough, wheezing, and pleuritic chest pain, MS/Extremity: Negative for injury and deformity, Skin: Negative for injury, rash, and discoloration, Neuro: Negative for headache, weakness, numbness, tingling, and seizure, Psych: Negative for depression, anxiety, suicide ideation, homicidal ideation, and hallucinations, 20:23 Abdomen/GI: Positive for abdominal pain, nausea, diarrhea, Exam: 20:23 Abdomen/GI: Surgical sites are clean dry, intact. Minimal tenderness to the rt epigastrium, no rebound, guarding, distention, Vital Signs: 19:49 BP 117 / 76; Pulse 95; Resp 18 S; Temp 98.3(O); Pulse Ox 99% on R/A; Weight 117.93 kg km8 (R); Height 5 ft. 3 in. (R); Pain 8/10; 20:24 BP 122 / 53; Pulse 91; Resp 17; Pulse Ox 97% on R/A; nw1 21:04 BP 103 / 74; Pulse 91; Resp 16; Pulse Ox 97% ; nw1 23:05 BP 134 / 119; Pulse 94; Resp 18; Pulse Ox 99% on R/A; km8 19:49 Body Mass Index 46.06 (117.93 kg, 160.02 cm) [facility] 19:49 Pain Scale: Adult [facility] [place] Coma Score: 20:24 Eye Response: spontaneous(4). Motor Response: obeys commands(6). Verbal Response: nw1 oriented(5). Total: 15. MDM: 20:02 Patient medically screened. rt 22:57 Differential diagnosis: Postsurgical complication, enteritis, colitis, C. difficile. rt Data reviewed: vital signs, nurses notes. I considered the following discharge prescriptions or medication management in the emergency department Medications were administered in the Emergency Department. See MAR. Independent interpretation of the following test(s) in the Emergency Department CT Scan: My interpretation is No bowel obstruction seen on interpretation of CT scan images. Counseling: I had a detailed discussion with the patient and/or guardian regarding the historical points, exam findings, and any diagnostic results supporting the discharge/admit diagnosis, lab results, radiology results, the need for outpatient follow up, to return to the emergency department if symptoms worsen or persist or if there are any questions or concerns that arise at home. Response to treatment: the patient's symptoms have markedly improved after treatment. ED course: Patient with mildly elevated lipase, benign abdominal examination, no CT evidence of a pancreatitis, believe this is due to enteritis state as compared to an acute pancreatitis. Symptoms have significantly improved with treatment in the ED, is stable for outpatient care, return precautions were discussed.. 06/11 20:14 Order name: CBC with Diff; Complete Time: 21:44 rt 06/11 20:14 Order name: CMP; Complete Time: :44 rt 06/11 20:14 Order name: Lipase; Complete Time: 21:44 rt 06/11 20:34 Order name: CDIFF; Complete Time: 21:44 rt 06/11 20:14 Order name: CT Abd/Pelvis - IV Contrast Only; Complete Time: 22:40 rt 06/11 20:14 Order name: IV Saline Lock; Complete Time: 20:48 rt 06/11 20:14 Order name: Labs collected and sent; Complete Time: 20:48 rt Administered Medications: 20:47 Drug: NS 0.9% IV 1000 ml IV at 1 bolus Per protocol; 1000 mL bolus Route: IV; Rate: 1 nw1 bolus; Site: right forearm; 23:10 Follow up: IV Status: Completed infusion; IV Intake: 1000ml km8 20:47 Drug: Famotidine IVP 20 mg IVP once; dilute with 10 mL 0.9% NaCl; give over 2 minutes nw1 Route: IVP; Site: right forearm; 23:10 Follow up: Response: No adverse reaction km8 20:48 Drug: Ondansetron IVP 4 mg IVP once; over 2 minutes Route: IVP; Site: right forearm; nw1 23:10 Follow up: Response: No adverse reaction km8 20:53 CANCELLED (Patient Refused): morphineor iv 4 mg IVP once over 4 mins rt 20:59 Drug: fentaNYL (PF) IVP 50 mcg IVP once Route: IVP; Site: left forearm; nw1 23:10 Follow up: Response: No adverse reaction; Pain is decreased km8 23:10 Drug: Dicyclomine PO 20 mg PO once Route: PO; km8 23:10 Follow up: Response: Medication administered at discharge. km8 Disposition Summary: 06/11/23 22:53 Discharge Ordered Notes: Location: Home rt Problem: new rt Symptoms: have improved rt Condition: Stable rt Diagnosis - Other viral enteritis rt Followup: rt - With: Private Physician - When: 2 - 3 days - Reason: Discharge Instructions: - Discharge Summary Sheet rt - Viral Gastroenteritis, Adult rt Forms: - Medication Reconciliation Form rt - Thank You Letter rt - Antibiotic Education rt - Prescription Opioid Use rt - Patient Portal Instructions rt - Leadership Thank You Letter rt Prescriptions: - dicyclomine 10 mg Oral capsule - take 1 capsule ORAL route 3 times per day; 15 capsule; Refills: 0, Product rt Selection Permitted Signatures: Dispatcher [employer] Joe Huertas MD MD rt Martha Alejo RN RN km8 Rubi Mae RN RN nw1 Corrections: (The following items were deleted from the chart) 20:53 20:14 morphine IVP or IV 4 mg IVP once over 4 mins ordered. rt rt
--- NOTE | 2023-06-11 22:54 | ER ---
Nurse's Notes [facility] Name: Yuridia Wynne Age: 58 yrs Sex: Female : 1965 Arrival Date: 06/11/2023 Time: 18:43 Bed 19 Private MD: Diagnosis: Other viral enteritis Presentation: 06/11 19:49 Chief complaint: Patient states: pt reports epigastric pain, diarrhea, nausea starting km8 at 1400 today; pt had appendectomy 2 week ago; saw surgeon 1 week ago; denies fever. Coronavirus screen: Client denies travel out of the [place] in the last 14 days. Ebola Screen: No symptoms or risks identified at this time. Initial Sepsis Screen: Does the patient meet any 2 criteria? HR > 90 bpm. No. Patient's initial sepsis screen is negative. Does the patient have a suspected source of infection? No. Patient's initial sepsis screen is negative. Risk Assessment: Do you want to hurt yourself or someone else? Patient reports no desire to harm self or others. Onset of symptoms was June 11, 2023 at 14:00. 19:49 Method Of Arrival: Wheelchair km8 19:49 Acuity: MEDINA 3 km8 Triage Assessment: 19:51 General: Appears uncomfortable, Behavior is cooperative, appropriate for age. Pain: km8 Complains of pain in epigastric area Pain currently is 8 out of 10 on a pain scale. EENT: No signs and/or symptoms were reported regarding the EENT system. Neuro: Level of Consciousness is awake, alert, obeys commands, Oriented to person, place, time, situation. Cardiovascular: Reports chest pain, Capillary refill < 3 seconds Patient's skin is warm and dry. Respiratory: Airway is patent Respiratory effort is even, unlabored, Respiratory pattern is regular, symmetrical. GI: Reports upper abdominal pain, nausea, s/p appendectomy 2 weeks ago. : No signs and/or symptoms were reported regarding the genitourinary system. Derm: Skin is intact, Skin is dry, Skin is normal, Skin temperature is warm. Musculoskeletal: No signs and/or symptoms reported regarding the musculoskeletal system. Range of motion: intact in all extremities. Historical: - Allergies: 19:51 No Known Allergies; km8 - Home Meds: 19:51 levothyroxine 50 mcg tab 1 tab once daily [Active]; 8 - PMHx: 19:51 Anxiety; depressive disorder; Hypercholesterolemia; Hypothyroidism; 8 - PSHx: 19:51 section; Cholecystectomy; Appendectomy; km8 - Immunization history:: Client reports receiving the 2nd dose of the Covid vaccine, Flu vaccine is up to date. - Social history:: Smoking status: Patient denies any tobacco usage or history of. Patient/guardian denies using alcohol, street drugs. - Family history:: not pertinent. Screenin:04 [facility] ED Fall Risk Assessment (Adult) History of falling in the last 3 months, nw1 including since admission No falls in past 3 months (0 pts) Confusion or Disorientation No (0 pts) Intoxicated or Sedated No (0 pts) Impaired Gait No (0 pts) Mobility Assist Device Used No (0 pt) Altered Elimination No (0 pt) Score/Fall Risk Level 0 - 2 = Low Risk Oriented to surroundings, Maintained a safe environment, Educated pt \T\ family on fall prevention, incl call for assistance when getting out of bed, Assessed \T\ reinforced patient's understanding of fall precautions, Provided non-skid footwear, Hourly rounding (assess needs \T\ fall precautionary measures) done. Abuse screen: Denies threats or abuse. Denies injuries from another. Nutritional screening: No deficits noted. Tuberculosis screening: No symptoms or risk factors identified. Assessment: 20:22 Reassessment: Pt refuses IV at this time as she needs to have a bowel movement. Bedside nw1 commode placed in room with measuring hat to receive stool sample. Will assess and complete orders once patient is finished. 23:10 Reassessment: Patient appears in no apparent distress at this time. Patient and/or km8 family updated on plan of care and expected duration. Pain level reassessed. Patient is alert, oriented x 3, equal unlabored respirations, skin warm/dry/pink. Patient states feeling better. Vital Signs: 19:49 BP 117 / 76; Pulse 95; Resp 18 S; Temp 98.3(O); Pulse Ox 99% on R/A; Weight 117.93 kg km8 (R); Height 5 ft. 3 in. (R); Pain 8/10; 20:24 BP 122 / 53; Pulse 91; Resp 17; Pulse Ox 97% on R/A; nw1 21:04 BP 103 / 74; Pulse 91; Resp 16; Pulse Ox 97% ; nw1 23:05 BP 134 / 119; Pulse 94; Resp 18; Pulse Ox 99% on R/A; km8 19:49 Body Mass Index 46.06 (117.93 kg, 160.02 cm) km8 19:49 Pain Scale: Adult km8 Rain Coma Score: 20:24 Eye Response: spontaneous(4). Motor Response: obeys commands(6). Verbal Response: nw1 oriented(5). Total: 15. ED Course: 18:45 Patient arrived in ED. mg5 19:51 Triage completed. km8 19:51 Arm band placed on right wrist. km8 19:57 Joe Luna MD is Attending Physician. rt 20:15 Rubi Mae, ROOSEVELT is Primary Nurse. nw1 20:24 No provider procedures requiring assistance completed. Inserted saline lock: 20 gauge nw1 in left forearm, using aseptic technique. Blood collected. 20:48 CBC with Diff Sent. nw1 20:48 CMP Sent. nw1 20:48 Lipase Sent. nw1 21:04 Placed in gown. Bed in low position. Call light in reach. Side rails up X 1. Adult w/ nw1 patient. Provided Education on: POC. Pulse ox on. NIBP on. Door closed. Noise minimized. Lights dimmed. Warm blanket given. Head of bed elevated. Contact isolation initiated. c-diff precautions. 22:02 CT Abd/Pelvis - IV Contrast Only In Process Unspecified. EDMS 23:10 IV discontinued, intact, bleeding controlled, No redness/swelling at site. Pressure km8 dressing applied. Administered Medications: 20:47 Drug: NS 0.9% IV 1000 ml IV at 1 bolus Per protocol; 1000 mL bolus Route: IV; Rate: 1 nw1 bolus; Site: right forearm; 23:10 Follow up: IV Status: Completed infusion; IV Intake: 1000ml 8 20:47 Drug: Famotidine IVP 20 mg IVP once; dilute with 10 mL 0.9% NaCl; give over 2 minutes nw1 Route: IVP; Site: right forearm; 23:10 Follow up: Response: No adverse reaction km8 20:48 Drug: Ondansetron IVP 4 mg IVP once; over 2 minutes Route: IVP; Site: right forearm; nw1 23:10 Follow up: Response: No adverse reaction km8 20:53 CANCELLED (Patient Refused): morphineor iv 4 mg IVP once over 4 mins rt 20:59 Drug: fentaNYL (PF) IVP 50 mcg IVP once Route: IVP; Site: left forearm; nw1 23:10 Follow up: Response: No adverse reaction; Pain is decreased km8 23:10 Drug: Dicyclomine PO 20 mg PO once Route: PO; km8 23:10 Follow up: Response: Medication administered at discharge. km8 Medication: 20:24 VIS not applicable for this client. nw1 Intake: 23:10 IV: 1000ml; Total: 1000ml. km8 Outcome: 22:53 Discharge ordered by MD. rt 23:11 Discharged to home ambulatory, with significant other, km8 23:11 Condition: good 23:11 Discharge instructions given to patient, significant other, Instructed on discharge instructions, follow up and referral plans. medication usage, Demonstrated understanding of instructions, follow-up care, medications, Prescriptions given X 1, 23:12 Patient left the ED. km8 Signatures: Dispatcher [employer] EDOK Joe Luna MD MD rt Camryn Michael mg5 Martha Alejo RN RN km8 Rubi Mae, ROOSEVELT RN nw1 Corrections: (The following items were deleted from the chart) 20:24 20:22 Reassessment: Pt refuses IV at this time as she needs to have a bowel movement. nw1 Bedside commode placed in room with measuring hat to receive stool sample. nw1
[2023-06-12 04:51] VITALS: TEMP 98.3
[2023-06-12 05:00] VITALS: BP 134/119; O2SAT 99
== END ==
LOC: ER 18:43
DX: A08.39 Other viral enteritis (principal); E03.9 Hypothyroidism, unspecified; I10 Essential (primary) hypertension
CPT/HCPCS: 85025; 36415; 87324; 83690; 80053; 74177; 99284; Q9967; J3010; J2405; J7030

== ENCOUNTER 2024-07-25 22:25 | Emergency (ER) | payer OTHER ==
--- OUTSIDE RECORDS SUMMARY | 2024-07-25 22:32 | XMS REPORT | Continuity of Care Document ---
Author Name Unknown Address [address] [facility] [address] [place] [address] [facility] Address [address] [facility] [address] [place] [address] Care Team Providers Care [employer] Name Role Phone [address] Primary Care Physician UnavailSTAR Crooks Attending Clinician Unavailab Soto90 Attending Clinician Unavailable JAZZY SHAVER Attending Clinician Unavailable KARIN JOHNSON K.HPaz Attending Clinician Eli Johnson MD, Karin K.H. Attending Clinician [phone] Doctor Unassigned, [place] Attending Clinician U navailable Payers Payer Name Policy Type Policy Number Effective Date Expirati on Date Source [address] 94 9 [id number] 2024 00:00:00 Problems Condition Name Condition Details Condition Category Status Onset Date Resolution Date Last Treatment Date Treating Clinician Comments Source Class 3 severe obesity due to excess calories without serious comorbidit y with body mass index (BMI) of 45.0 to 49.9 in adult Class 3 severe obesity due to excess calories without serious comorbidit y with body mass index (BMI) of 45.0 to 49.9 in adult Disease Active 07-18 00:00: 00 Paola dyer History of ankle surgery History of ankle surgery Disease Active 07-18 00:00: 00 Paola dyer HTN (hypertens ion) HTN (hypertens ion) Disease Active Paola Seybold - Externa l Hyperlipid emia Hyperlipid emia Disease Active Paola Seybold - Externa l Hypothyroi dism Hypothyroi dism Disease Active Paola Seybold - Externa l Prediabete s Prediabete s Disease Active Paola Seybold - Externa l Allergies, Adverse Reactions, Alerts Allergy Name Allergy Type Status Severity Reaction(s) Onset Date Inactive Date Treating Clinician Comments Source NO KNOWN ALLERGIE S Drug Class Active [facility] Social History Social Habit Start Date Stop Date Quantity Comments Source ASSERTION Not Paola Pritchett - External Sexual orientation Krystian anderson Sebogdanradha - External History of Social function 2024-07-18 00:00:00 2024-07-18 00:00:00 Paolawilman Pritchett - External Tobacco use and exposure 2024-07-18 00:00:00 2024-07-18 00:00:00 Smokeless tobacco non-user Paola Pritchett - External Alcoholic beverage intake 2024-07-18 00:00:00 2024-07-18 00:00:00 Ex-drinker (finding) Paola Sargentold - External Sex 2024-06-15 21:51:10 2024-06-15 21:51:10 Female (finding) Paola Sargentold - External Exposure to SARS-CoV-2 (event) 2022-09-14 00:00:00 2022-09-24 14:16:00 Not sure [facility] Sex assigned at 1965 00:00:00 1965 00:00:00 Paolawilman Pritchett - External Smoking Status Start Date Stop Date Source Tobacco smoking consumption unknown [facility] Never smoked tobacco Paola Pritchett - External Medications Ordered Medication Name Filled Medication Name Start Date Stop Date Current Medication? Ordering Clinician Indication Dosage Frequency Signature (SIG) Comments Components Source Levothyroxi ne Sodium 75 MCG oral Tablet 07-18 10:27: 09 Yes 75ug QD Take 1 tablet (75 mcg total) by mouth daily. Paola Ceja Externa l Fluocinolon e Acetonide 0.01 % otic Oil 07-18 00:00: 00 Yes [id number] 5[drp] Q.5D Place 5 drops into both ears 2 times daily. Paola dyer Atorvastati n Calcium 20 MG oral Tablet 2-13 00:00: 00 Yes 20mg QD Take 1 tablet (20 mg total) by mouth daily. Paola dyer LISINOPRIL- HCTZ 10-12.5 MG oral Tablet 2-13 00:00: 00 Yes 1{tbl} QD Take 1 tablet by mouth daily. Paola dyer Escitalopra m Oxalate 20 MG oral Tablet - 00:00: 00 Yes 20mg QD Take 1 tablet (20 mg total) by mouth daily. Paola dyer OZEMPIC (0.25 or 0.5 mg/dose) 2 mg/3 mL SQ Solution Pen-Injecto r - 00:00: 00 Yes .5mg Q1W Inject 0.5 mg into the skin once a week. Paola dyer Metformin HCl 500 MG oral Tablet 2023-06- 00:00: 00 Yes 500mg QD Take 1 tablet (500 mg total) by mouth daily. Paola dyer levothyroxi ne 75 mcg tablet - 00:00: 00 Yes 1mcg Feliciano Bhatti atorvastati n 20 mg tablet 9-19 00:00: 00 Yes 1mg Feliciano Bhatti metformin 500 mg tablet 8- 00:00: 00 Yes 1mg Feliciano Bhatti lisinopril 10 mg-hydrochl orothiazide 12.5 mg tablet 8- 00:00: 00 Yes 1mg Feliciano Bhatti metformin 500 mg tablet 7-30 00:00: 00 Yes 1mg Feliciano Bhatti Lexapro 20 mg tablet 6-18 00:00: 00 Yes 1mg Feliciano Bhatti paroxetine mesylate (menopausal symptoms suppressant ) 7.5 mg capsule 6-13 00:00: 00 Yes 1mg Feliciano Bhatti atorvastati n 20 mg tablet 5-24 00:00: 00 Yes 1mg Feliciano Bhatti levothyroxi ne 75 mcg tablet 09-14 00:00: 00 Yes 1mcg Feliciano Bhatti escitalopra m 10 mg tablet 08-26 00:00: 00 Yes 1mg Feliciano Bhatti lisinopril 10 mg-hydrochl orothiazide 12.5 mg tablet 08-26 00:00: 00 Yes 1mg Feliciano Bhatti metformin 500 mg tablet 08-26 00:00: 00 Yes 1mg Feliciano Bhatti atorvastati n 20 mg tablet 08-26 00:00: 00 Yes 1mg Feliciano Bhatti levothyroxi ne 75 mcg tablet 08-26 00:00: 00 Yes 1mcg Feliciano Bhatti CIPROFLOXAC N 500MG 2022-06 00:00: 00 Yes Feliciano Bhatti TRAMADOL HCL 50MG 2022-06 00:00: 00 Yes Feliciano Bhatti TRAMADOL HCL 50 MG 2022-06 00:00: 00 Yes Feliciano Bhatti CIPROFLOXAC IN HCL 500 MG 2022-06 00:00: 00 Yes Feliciano Bhatti ATORVASTATI N 20MG 2022-06 00:00: 00 Yes [id number] Feliciano Bhatti TAKE 1 TABLET EVERY MORNING. 2022-06 00:00: 00 Yes 75 Feliciano Bhatti LEVOTHYROXI NE 75 MCG 2022-06 00:00: 00 Yes 75 Feliciano Bhatti TAKE 1 TABLET DAILY. 2022-06 00:00: 00 Yes 10 Feliciano Bhatti TAKE 1 TABLET DAILY. 2022-06 00:00: 00 Yes [id number] Feliciano Bhatti TAKE 1 TABLET DAILY. 2022-06 00:00: 00 Yes 500 Feliciano Bhatti TAKE 1 TABLET DAILY. 2022-06 00:00: 00 10-13 00:00 :00 No 20 Feliciano Bhatti TAKE 1 TABLET EVERY MORNING. 2022-06 00:00: 00 10-13 00:00 :00 No 75 Feliciano Bhatti ATORVASTATI N 10MG 2022-06 00:00: 00 Yes Feliciano Bhatti LEVOTHYROXI N 75MCG 2022-06 00:00: 00 10-13 00:00 :00 No Feliciano Bhatti METFORMIN 500MG 2022-06 00:00: 00 10-13 00:00 :00 No Feliciano Susie Bhatti TAKE 1 TABLET BY MOUTH TWICE A DAY 2022-06 0- 00:00: 00 10-13 00:00 :00 No 500 Feliciano Susie Bhatti NITROFURANT N 100MG 02-27 00:00: 00 Yes Feliciano Bhatti TAKE 1 CAPSULE TWICE DAILY. 02-27 00:00: 00 10-13 00:00 :00 No 100 Feliciano Bhatti TAKE 1 TABLET EVERY 6 TO 8 HOURS NEEDED. 02-27 00:00: 00 10-13 00:00 :00 No 600 Felicianosherlyn Bhatti APPLY SPARINGLY TO THE AFFECTED AREA(S) TWICE DAILY. 02-13 00:00: 00 10-13 00:00 :00 No 1005 Felicianosherlyn Bhatti TAKE 1 TABLET EVERY MORNING. 8 00:00: 00 10-13 00:00 :00 No 75 Felicianosherlyn Bhatti TAKE 1 TABLET EVERY MORNING. 12-15 00:00: 00 10-13 00:00 :00 No 75 Feliciano Bhatti TAKE 1 TABLET DAILY. 12-12 00:00: 00 10-13 00:00 :00 No 10 Feliciano Bhatti TAKE 1 TABLET DAILY. 12-11 00:00: 00 10-13 00:00 :00 No [id number] Feliciano Bhatti TAKE 1 TABLET DAILY. 12-11 00:00: 00 10-13 00:00 :00 No 500 Felicianosherlyn Bhatti TAKE 1 TABLET DAILY. 12-11 00:00: 00 10-13 00:00 :00 No 10 Felicianosherlyn Bhatti TAKE 1 TABLET EVERY MORNING. 12-11 00:00: 00 10-13 00:00 :00 No 75 Feliciano Susie Bhatti hydroCHLORO thiazide 12.5 mg capsule 4- 14:45: 53 Yes [id number] 12.5mg Take 1 capsule by mouth in the morning. [facility] levothyroxi ne (UNITHROID) 75 mcg tablet 09-24 14:45: 53 Yes [id number] 75ug Take 1 tablet by mouth every morning. [facility] escitalopra m oxalate 10 mg tablet 09-24 14:45: 53 Yes [id number] 10mg Take 1 tablet by mouth in the morning. [facility] lisinopriL 10 mg tablet 09-24 14:45: 53 Yes [id number] 10mg Take 1 tablet by mouth in the morning. [facility] TAKE ONE (1) TABLET(S) BY MOUTH TWICE A DAY FOR 10 DAYS. 08-26 00:00: 00 Yes Feliciano Bhatti metFORMIN 500 mg tablet 08-06 00:00: 00 Yes [id number] 500mg Take 1 tablet by mouth in the morning. [facility] TAKE 1 TABLET DAILY. 08-04 00:00: 00 10-13 00:00 :00 No 10 Feliciano Bhatti TAKE 1 TABLET DAILY. 08-04 00:00: 00 10-13 00:00 :00 No 500 Feliciano Bhatti TAKE 10 ML 4-6 HOURS NEEDED 07-30 00:00: 00 10-13 00:00 :00 No [id number] Feliciano Bhatti 5 ML SWISH AND SPIT QID X 7 DAYS 07-30 00:00: 00 10-13 00:00 :00 No [id number] Feliciano Bhatti TAKE 1 TABLET EVERY MORNING. 07-30 00:00: 00 10-13 00:00 :00 No 75 Feliciano Bhatti TAKE 1 TABLET DAILY. 07-28 00:00: 00 10-13 00:00 :00 No 50 Feliciano Bhatti TAKE 1 TABLET DAILY. 07-28 00:00: 00 10-13 00:00 :00 No 125 Feliciano Bhatti TAKE 1 TABLET DAILY. 07-28 00:00: 00 10-13 00:00 :00 No 10 Feliciano Bhatti TAKE 1 TABLET DAILY. 2-27 00:00: 00 10-13 00:00 :00 No 10 Feliciano Bhatti TAKE 1 TABLET DAILY. 1-21 00:00: 00 10-13 00:00 :00 No 5 Feliciano Susie Bhatti Dose Unknown 2021-06 2- 00:00: 00 10-13 00:00 :00 No Feliciano F Davy Dose Unknown 2021-06 00:00: 00 10-13 00:00 :00 No Feliciano F Davy Dose Unknown 2021-06 2- 00:00: 00 10-13 00:00 :00 No Feliciano F Davy Dose Unknown 2021-06 2- 00:00: 00 10-13 00:00 :00 No Feliciano Bhatti TAKE ONE (1) TABLET(S) BY MOUTH DAILY. 08-30 00:00: 00 Yes Feliciano Bhatti TAKE ONE (1) TABLET(S) BY MOUTH DAILY. 08-30 00:00: 00 Yes Feliciano Bhatti Dose Unknown 9-01 00:00: 00 Yes Feliciano Bhatti Cortisporin -TC 3.3 mg-3 mg-10 mg-0.5 mg/mL ear drops,suspe nsion 8-31 00:00: 00 Yes 4mg/mL Feliciano Bhatti Dose Unknown 8-05 00:00: 00 Yes Feliciano Bhatti Dose Unknown 5-21 00:00: 00 Yes Feliciano Susie Bhatti Dose Unknown 5- 00:00: 00 Yes Feliciano Bhatti benzonatate 100 mg capsule 5-01 00:00: 00 Yes 12mg Feliciano Bhatti amoxicillin 875 mg tablet 3-25 00:00: 00 Yes 1mg Feliciano Bhatti benzonatate 100 mg capsule 3-25 00:00: 00 Yes 12mg Feliciano Bhatti Bromfed DM 2 mg-30 mg-10 mg/5 mL oral syrup 3-25 00:00: 00 Yes 5mg/5 mL Feliciano Bhatti metronidazo le 500 mg tablet 2-14 00:00: 00 Yes 1mg Feliciano Bhatti levothyroxi ne 50 mcg tablet 2018-06 1 00:00: 00 Yes 1mcg Feliciano Bhatti neomycin-po lymyxin-hyd rocort 3.5 mg-10,000 unit/mL-1 % ear drops,susp 9 00:00: 00 Yes 3mg/mL- unit/mL -% Feliciano Bhatti levothyroxi ne 50 mcg tablet 01-04 00:00: 00 Yes 1mcg Feliciano Bhatti levothyroxi ne 50 mcg tablet 10-26 00:00: 00 Yes 1mcg Feliciano Bhatti Immunizations Ordered Immunization Name Filled Immunization Name Date Status Comments Source Influenza, injectable, [place] Canine Kidney, preservative-free, quadrivalent Influenza, injectable, [place] Canine Kidney, preservative-free, quadrivalent 2024-03-03 00:00:00 Completed Feliciano Bhatti SHINGRIX VACCINE SHINGRIX VACCINE 2023-08-27 00:00:00 Completed Feliciano Bhatti Influenza, injectable, [place] Canine Kidney, preservative-free, quadrivalent Influenza, injectable, [place] Canine Kidney, preservative-free, quadrivalent 2023-04-16 00:00:00 Completed Feliciano Bhatti Tdap Tdap 2019-01-04 00:00:00 Completed Feliciano Bhatti AFLURIA TRIVALENT MDV Unknown Completed Paola Pritchett - External Shingles IM (Shingrix) Unknown Completed Paola Pritchett - External Vital Signs Vital Name Observation Time Observation Value Comments S ource Systolic blood pressure 2024-07-18 16:25:00 128 mm[Hg] Paola robles - External Diastolic blood pressure 2024-07-18 16:25:00 70 mm[Hg] Paola robles - External Heart rate 2024-07-18 16:25:00 83 /min Norman Pritchett - External Body temperature 2024-07-18 16:25:00 36.78 Tyra Paola Pritchett - External Respiratory rate 2024-07-18 16:25:00 18 /min Paola Pritchett - External Body height 2024-07-18 16:25:00 160 cm Mila ey Seybold - External Body weight 2024-07-18 16:25:00 118.389 kg Mila ey Seybold - External BMI 2024-07-18 16:25:00 46.23 kg/m2 Mila ey Seybold - External Oxygen saturation in Arterial blood by Pulse oximetry 2024-07-18 16:25:00 98 /min Paola Caldwell ld - External Systolic blood pressure 2022-09-24 19:40:00 111 mm[Hg] [place] [facility] Diastolic blood pressure 2022-09-24 19:40:00 59 mm[Hg] [facility] Heart rate 2022-09-24 19:40:00 88 /min [facility] 2022-09-24 19:40:00 162.6 cm [facility] 2022-09-24 19:40:00 120.112 kg [facility] BMI 2022-09-24 19:40:00 45.45 kg/m2 [facility] Oxygen saturation in Arterial blood by Pulse oximetry 2022-09-24 19:40:00 95 /min [place] o [facility] BP Systolic 2024-03-03 08:08:00 117 mm[Hg] Step hen F Davy BP Diastolic 2024-03-03 08:08:00 75 mm[Hg] Isra phen F Davy Weight Measured 2024-03-03 08:08:00 253.20 pounds Feliciano Susie Bhatti Height Measured 2024-03-03 08:08:00 63.00 inches Feliciano Susie Bhatti Body Temperature 2024-03-03 08:08:00 98.00 degrees Feliicano Susie Bhatti Heart Rate 2024-03-03 08:08:00 85.00 /min Eufemia en F Davy Respiratory Rate 2024-03-03 08:08:00 18.00 /min Feliciano Susie Bhatti BP Systolic 2024-01-06 14:10:00 127 mm[Hg] Step hen F Davy BP Diastolic 2024-01-06 14:10:00 72 mm[Hg] Isra phen Susie Bhatti Weight Measured 2024-01-06 14:10:00 261.00 pounds Felicianosherlyn Bhatti Height Measured 2024-01-06 14:10:00 63.00 inches Feliciano F Davy Body Temperature 2024-01-06 14:10:00 97.30 degrees Feliciano F Davy Heart Rate 2024-01-06 14:10:00 88.00 /min Eufemia en F Davy Respiratory Rate 2024-01-06 14:10:00 18.00 /min Feliciano F Davy BP Systolic 2023-12-31 09:05:00 109 mm[Hg] Step hen F Davy BP Diastolic 2023-12-31 09:05:00 68 mm[Hg] Isra phen F Davy Weight Measured 2023-12-31 09:05:00 262.80 pounds Feliciano F Davy Height Measured 2023-12-31 09:05:00 63.00 inches Feliciano F Davy Body Temperature 2023-12-31 09:05:00 97.50 degrees Feliciano F Davy Heart Rate 2023-12-31 09:05:00 98.00 /min Eufemia en F Davy Respiratory Rate 2023-12-31 09:05:00 Feliciano F Davy BP Systolic 2023-11-12 08:24:00 Step hen F Davy BP Diastolic 2023-11-12 08:24:00 Isra phen F Davy Weight Measured 2023-11-12 08:24:00 268.04 pounds Feliciano F Davy Height Measured 2023-11-12 08:24:00 63.00 inches Feliciano F Davy Body Temperature 2023-11-12 08:24:00 97.40 degrees Feliciano F Davy Heart Rate 2023-11-12 08:24:00 Eufemia en F Davy Respiratory Rate 2023-11-12 08:24:00 Feliciano F Davy BP Systolic 2023-11-12 08:04:00 110 mm[Hg] Step hen F Davy BP Diastolic 2023-11-12 08:04:00 69 mm[Hg] Isra phen F Davy Weight Measured 2023-11-12 08:04:00 268.04 pounds Feliciano F Davy Height Measured 2023-11-12 08:04:00 63.00 inches Feliciano F Davy Body Temperature 2023-11-12 08:04:00 97.40 degrees Feliciano F Davy Heart Rate 2023-11-12 08:04:00 76.00 /min Eufemia en F Davy Respiratory Rate 2023-11-12 08:04:00 18.00 /min Feliciano F Davy BP Systolic 2023-09-14 08:33:00 Step hen F Davy BP Diastolic 2023-09-14 08:33:00 Isra phen F Davy Weight Measured 2023-09-14 08:33:00 266.60 pounds Feliciano F Davy Height Measured 2023-09-14 08:33:00 63.00 inches Feliciano F Davy Body Temperature 2023-09-14 08:33:00 97.70 degrees Feliciano F Davy Heart Rate 2023-09-14 08:33:00 78.00 /min Eufemia en F Davy Respiratory Rate 2023-09-14 08:33:00 18.00 /min Feliciano F Davy BP Systolic 2023-09-14 08:10:00 126 mm[Hg] Step hen F Davy BP Diastolic 2023-09-14 08:10:00 86 mm[Hg] Isra phen F Davy Weight Measured 2023-09-14 08:10:00 266.60 pounds Feliciano F Davy Height Measured 2023-09-14 08:10:00 63.00 inches Feliciano F Davy Body Temperature 2023-09-14 08:10:00 97.70 degrees Feliciano F Davy Heart Rate 2023-09-14 08:10:00 78.00 /min Eufemia en F Davy Respiratory Rate 2023-09-14 08:10:00 18.00 /min Feliciano F Davy BP Systolic 2023-08-27 14:09:00 121 mm[Hg] Step hen F Davy BP Diastolic 2023-08-27 14:09:00 70 mm[Hg] Isra phen F Davy Weight Measured 2023-08-27 14:09:00 263.40 pounds Feliciano F Dvay Height Measured 2023-08-27 14:09:00 63.00 inches Feliciano F Davy Body Temperature 2023-08-27 14:09:00 97.40 degrees Feliciano F Davy Heart Rate 2023-08-27 14:09:00 95.00 /min Eufemia en F Davy Respiratory Rate 2023-08-27 14:09:00 Feliciano F Davy BP Systolic 2023-06-19 10:55:00 116 mm[Hg] Step hen F Davy BP Diastolic 2023-06-19 10:55:00 69 mm[Hg] Isra phen F Davy Weight Measured 2023-06-19 10:55:00 268.40 pounds Feliciano F Davy Height Measured 2023-06-19 10:55:00 63.00 inches Feliciano F Davy Body Temperature 2023-06-19 10:55:00 98.20 degrees Feliciano F Davy Heart Rate 2023-06-19 10:55:00 74.00 /min Eufemia en F Davy Respiratory Rate 2023-06-19 10:55:00 18.00 /min Feliciano F Davy BP Systolic 2023-04-16 08:04:00 108 mm[Hg] Step hen F Davy BP Diastolic 2023-04-16 08:04:00 68 mm[Hg] Isra phen F Davy Weight Measured 2023-04-16 08:04:00 265.40 pounds Feliciano F Davy Height Measured 2023-04-16 08:04:00 63.00 inches Feliciano F Davy Body Temperature 2023-04-16 08:04:00 97.30 degrees Feliciano F Davy Heart Rate 2023-04-16 08:04:00 72.00 /min Eufemia en F Davy Respiratory Rate 2023-04-16 08:04:00 Feliciano F Davy BP Systolic 2023-02-27 11:08:00 130 mm[Hg] Step hen F Davy BP Diastolic 2023-02-27 11:08:00 68 mm[Hg] Isra phen F Davy Weight Measured 2023-02-27 11:08:00 266.80 pounds Feliciano F Davy Height Measured 2023-02-27 11:08:00 63.00 inches Feliciano F Davy Body Temperature 2023-02-27 11:08:00 98.40 degrees Feliciano F Davy Heart Rate 2023-02-27 11:08:00 80.00 /min Eufemia en F Davy Respiratory Rate 2023-02-27 11:08:00 18.00 /min Feliciano F Davy BP Systolic 2023-02-13 09:01:00 117 mm[Hg] Step hen F Davy BP Diastolic 2023-02-13 09:01:00 81 mm[Hg] Isra phen F Davy Weight Measured 2023-02-13 09:01:00 267.60 pounds Feliciano F Davy Height Measured 2023-02-13 09:01:00 63.00 inches Feliciano F Davy Body Temperature 2023-02-13 09:01:00 98.00 degrees Feliciano F Davy Heart Rate 2023-02-13 09:01:00 83.00 /min Eufemia en F Davy Respiratory Rate 2023-02-13 09:01:00 19.00 /min Feliciano F Davy BP Systolic 2022-12-11 13:38:00 122 mm[Hg] Step hen F Davy BP Diastolic 2022-12-11 13:38:00 80 mm[Hg] Isra phen F Davy Weight Measured 2022-12-11 13:38:00 265.60 pounds Feliciano F Davy Height Measured 2022-12-11 13:38:00 63.00 inches Feliciano F Davy Body Temperature 2022-12-11 13:38:00 97.10 degrees Feliciano F Davy Heart Rate 2022-12-11 13:38:00 100.00 /min Step hen F Davy Respiratory Rate 2022-12-11 13:38:00 Feliciano Bhatti Procedures Procedure Date / Time Performed Performing Clinicia n Source ASSIGNMENT OF BENEFITS 2022-09-24 19:20:40 Docto r Unassigned, [place] [facility] Encounters Start Date/Time End Date/Time Encounter Type Admission Type Attending [facility] Facility Care Department Encounter ID Source 2024-07-22 00:00:00 2024-07-22 00:00:00 Outpatient STAR ZAMORA [id number] [facility] 2024-07-19 00:00:00 2024-07-19 00:00:00 Outpatient STAR ZAMORA [id number] [facility] 2024-07-18 11:20:00 2024-07-18 11:20:00 Outpatient LAB90 PAOLA ELDER [id number] [facility] 2024-07-18 11:15:00 2024-07-18 11:15:00 Outpatient LAB90 PAOLA ELDER [id number] [facility] 2024-07-18 10:30:00 2024-07-18 10:30:00 Outpatient STAR ZAMORA [id number] [facility] 2024-06-30 15:00:00 2024-06-30 15:00:00 Outpatient JAZZY SHAVER [id number] Paola Pritchett 2024-06-30 10:30:00 2024-06-30 10:30:00 Outpatient JAZZY SHAVER [id number] Paola Pritchett 2024-03-03 08:03:17 2024-03-03 08:03:17 Outpatient SFA SFA [id number] Feliciano Bhatti 2024-03-03 00:00:00 2024-03-03 00:00:00 Outpatient Visit SFA [id number] Feliciano Bhatti 2024-01-08 08:51:50 2024-01-08 08:51:50 Outpatient SFA SFA [id number] Feliciano Bhatti 2024-01-06 13:47:37 2024-01-06 13:47:37 Outpatient SFA SFA [id number] Feliciano Bhatti 2024-01-06 00:00:00 2024-01-06 00:00:00 Outpatient Visit SFA [id number] Feliciano Bhatti 2023-12-31 08:57:48 2023-12-31 08:57:48 Outpatient SFA SFA [id number] Feliciano Bhatti 2023-12-31 00:00:00 2023-12-31 00:00:00 Outpatient Visit SFA [id number] Feliciano Bhatti 2023-11-12 08:03:54 2023-11-12 08:03:54 Outpatient SFA SFA [id number] Feliciano Bhatti 2023-11-12 00:00:00 2023-11-12 00:00:00 Outpatient Visit SFA [id number] Feliciano Bhatti 2023-09-14 08:05:29 2023-09-14 08:05:29 Outpatient SFA SFA [id number] Feliciano Bhatti 2023-08-27 15:22:30 2023-08-27 15:22:30 Outpatient SFA SFA [id number] Feliciano Bhatti 2023-06-19 10:45:39 2023-06-19 10:45:39 Outpatient SFA SFA [id number] Feliciano Bhatti 2023-04-16 08:03:33 2023-04-16 08:03:33 Outpatient SFA SFA [id number] Feliciano Bhatti 2023-02-27 11:01:43 2023-02-27 11:01:43 Outpatient SFA SFA [id number] Feliciano Bhatti 2023-02-13 08:56:53 2023-02-13 08:56:53 Outpatient SFA SFA [id number] Feliciano Richards Davy 2022-12-25 08:25:14 2022-12-25 08:25:[address] [facility] [id number] Feliciano Richards Davy 2022-12-12 14:07:38 2022-12-12 14:07:[address] [facility] [id number] Feliciano Richards Davy 2022-12-11 13:31:49 2022-12-11 13:31:[address] [facility] [id number] Feliciano Richards Davy 2022-09-25 14:30:00 2022-09-25 14:30:00 Outpatient [facility] [id number] [facility] 2022-09-24 14:30:00 2022-09-24 15:23:40 Office Visit Karin Johnson [facility] [id number] [facility] 2022-09-24 14:30:00 2022-09-24 15:23:40 Outpatient R [facility] [id number] [facility] 2022-09-24 00:00:00 2022-09-24 00:00:00 Orders Only Doctor Unassigned, [place] [facility] [id number] [facility] 2022-08-11 09:46:59 2022-08-11 09:46:59 Outpatient SFA SFA [id number] Feliciano Bhatti 2022-08-04 11:47:16 2022-08-04 11:47:16 Outpatient SFA SFA [id number] Feliciano Bhatti 2022-07-30 14:58:59 2022-07-30 14:58:59 Outpatient SFA SFA [id number] Feliciano Bhatti 2022-07-28 08:34:44 2022-07-28 08:34:44 Outpatient SFA SFA [id number] Feliciano Bhatti 2022-06-18 15:47:46 2022-06-18 15:47:46 Outpatient SFA SFA [id number] Feliciano Bhatti 2022-05-14 16:55:57 2022-05-14 16:55:57 Outpatient SFA SFA [id number] Feliciano Bhatti 2022-05-06 16:04:30 2022-05-06 16:04:30 Outpatient SFA SFA 1206 Feliciano Bhatti Results Test Description Test Time Test Comments Results Result Co mments Source LIPID [id number] 05:52:00* Test Item Value Reference Range Interpretation Comme nts CHOLESTEROL (test code = 2210) 108 MG/DL <200 TRIGLYCERIDES (test code = 2232) 185 MG/DL <150 H HDL CHOLESTEROL (test code = 2220) 33 MG/DL >39 L CALC LDL CHOL (test code = 2237) 49 MG/DL <100 NOTE: CALCULATED LDL IS BASED ON KAYLYNN-FIGUEREDO METHOD WHICHINCLUDES ADJUSTABLE TRIGLYCERIDE:VLDL CHOLESTEROL RATIO.THIS FACTOR VARIES BY MEASURED TRIGLYCERIDE AND NON-HDLCHOLESTEROL CONCENTRATIONS WITH INCREASED CALCULATED LDL SEENIN HIGHER TRIGLYCERIDE OR LOWER NON-HDL SPECIMENS. FOR MOREINFORMATION, SEE CLIENT ANNOUNCEMENT AT [email or web address] [email or web address] LDL/HDL (test code = 2237) 1.48 RATIO <3.22 COMPREHENSIVE METABOLIC [id number] 05:52:00* Test Item Value Reference Range Interpretation Comme nts GLUCOSE (test code = 2216) 106 MG/DL 70-99 H BUN (test code = 2207) 9 MG/DL 6-20 CREATININE (test code = 2213) 0.86 MG/DL 0.60-1.30 eGFR (2020 CKD-EPI) (test co de = 89080) 79 ML/MIN/1.73 >60 CALC BUN/CREAT (test code = 2234) 10 RATIO 6-28 SODIUM (test code = 2230) 143 MEQ/L 133-146 POTASSIUM (test code = 2227) 4.7 MEQ/L 3.5-5.4 CHLORIDE (test code = 2214) 105 MEQ/L 95-107 CARBON DIOXIDE (test code = 2205) 27 MEQ/L 19-31 CALCIUM (test code = 2208) 8.9 MG/DL 8.5-10.5 PROTEIN, TOTAL (test code = 2228) 6.4 G/DL 6.1-8.3 ALBUMIN (test code = 2200) 3.8 G/DL 3.5-5.2 CALC GLOBULIN (test code = 2240) 2.6 G/DL 1.9-3.7 CALC A/G RATIO (test code = 2234) 1.5 RATIO 1.0-2.6 BILIRUBIN, TOTAL (test code = 2206) 0.4 MG/DL <=1.2 ALKALINE PHOSPHATASE (test code = 2203) 111 U/L 40-136 AST (test code = 2217) 15 U/L 9-40 ALT (test code = 2219) 16 U/L 5-40 HEMOGLOBIN [id number] 03:24:34* Test Item Value Reference Range Interpretation Comme nts HEMOGLOBIN A1c (test code = 13203) 5.9 % 4.2-5.6 H [employer] GUIDELINES FOR HGB A1C: [...] ETC.). CONSIDER ALTERNATE TESTING OR LABORATORY CONSULTATION. HERPES SIMPLEX AB, [id number] 14:01:21* Test Item Value Reference Range Interpretation Comme nts HERPES SIMPLEX AB, IgM (test code = 32557) 0.40 INDEX SEE BELOW INTERPRETATION U NITS RANGE ----- ----- NEGATIVE INDEX <=0.89 EQUIVOCAL INDEX 0.90-1.09 POSITIVE INDEX >=1.10 UNLESS OTHERWISE INDICATED, ALL TESTING PERFORMED AT [facility] [address] [place] [address] BUILDER OPERATOR: KENNY FOWLER M.D. IA NUMBER [id number] [facility] [place]. [id number] HERPES SIMPLEX AB, [id number] 00:00:00* Test Item Value Reference Range Interpretation Comme nts HERPES SIMPLEX AB, IgM (test code = 79694) 0.40 INDEX Feliciano Richards DavyCT/NG, NAAT, [id number] 14:02:07* Test Item Value Reference Range Interpretation Comme nts CHLAMYDIA, NAAT, URINE (test code = 78376) NEGATIVE NEGATIVE Testing is perfo rmed with [facility] 6800/8800 systems usingreal-time polymerase chain reaction (PCR) method. A negative result does not exclude low level infection, specimensampling error, or collection error. GONORRHEA, NAAT, URINE (test code = 89973) NEGATIVE NEGATIVE Testing is perfo rmed with [facility] 6800/8800 systems usingreal-time polymerase chain reaction (PCR) method. A negative result does not exclude low level infection, specimensampling error, or collection error. VAGINAL PATHOGENS DNA [id number] 13:46:39* Test Item Value Reference Range Interpretation Comme nts MELVA SPECIES (test code = 95592) NEGATIVE NEGATIVE G. VAGINALIS (test code = 52903) NEGATIVE NEGATIVE T. VAGINALIS (test code = 08479) NEGATIVE NEGATIVE Note: The BD [facility] ir VPIII Microbial Identification Testis a DNA probe test intended for use in the detectionand identification of Melva species, Gardnerellavaginalis and Trichomonas vaginalis nucleic acid. [id number] 06:46:54* Test Item Value Reference Range Interpretation Comme nts RPR RESULT (test code = 3501) NON-REACTIVE NON-REACTIVE RPR TITER (test code = 3500) NOT INDIC. TITER NOT INDIC. HERPES SIMPLEX 1/2 AB, IgG [id number] 06:27:59* Test Item Value Reference Range Interpretation Comme nts HERPES SIMPLEX 1 AB, IgG (test code = 17859) 16.800 INDEX SEE BELOW H INTERPRETATION U NITS RANGE ----- ----- NON-REACTIVE INDEX <1.000 REACTIVE INDEX >=1.000 HERPES SIMPLEX 2 AB, IgG (test code = 17094) 29.600 INDEX SEE BELOW H INTERPRETATION U NITS RANGE ----- ----- NON-REACTIVE INDEX <1.000 REACTIVE INDEX >=1.000 HIV 1/2 4TH GEN, RFLX [id number] 06:27:59* Test Item Value Reference Range Interpretation Comme nts HIV 1/2 4TH GEN, RFLX CONF (test code = 3514) NON-REACTIVE NON-REACTIVE UNLESS OTHERWISE INDICATED, ALL TESTING PERFORMED AT [facility] [address] [place] [address] BUILDER OPERATOR: KENNY FOWLER M.D. CLIA NUMBER [id number] [facility] [place]. [id number] VAGINAL PATHOGENS DNA [id number] 00:00:00* Test Item Value Reference Range Interpretation Comme nts MELVA SPECIES (test code = 22537) NEGATIVE G. VAGINALIS (test code = 00767) NEGATIVE T. VAGINALIS (test code = 50349) NEGATIVE Feliciano Susie [id number] 00:00:00* Test Item Value Reference Range Interpretation Comme nts RPR RESULT (test code = 3501) NON-REACTIVE RPR TITER (test code = 3500) NOT INDIC. TITER Feliciano BhattiCT/NG, NAAT, [id number] 00:00:00* Test Item Value Reference Range Interpretation Comme nts CHLAMYDIA, NAAT, URINE (test code = 49514) NEGATIVE GONORRHEA, NAAT, URINE (test code = 18766) NEGATIVE Feliciano BhattiHERPES SIMPLEX 1/2 ANTIBODY, [id number] 00:00:00* Test Item Value Reference Range Interpretation Comme nts HERPES SIMPLEX 1 AB, IgG (te st code = 44921) 16.800 INDEX HERPES SIMPLEX 2 AB, IgG (te st code = 06276) 29.600 INDEX Feliciano BhattiHIV 1/2 4TH GEN, RFLX [id number] 00:00:00* Test Item Value Reference Range Interpretation Comme nts HIV 1/2 4TH GEN, RFLX CONF ( test code = 3514) NON-REACTIVE Feliciano BhattiTSH, THIRD [id number] 10:40:51* Test Item Value Reference Range Interpretation Comme nts TSH, THIRD GENERATION (test code = 2821) 3.070 UIU/ML 0.400-4.100 LIPID [id number] 08:22:37* Test Item Value Reference Range Interpretation Comme nts CHOLESTEROL (test code = 2210) 118 MG/DL <200 TRIGLYCERIDES (test code = 2232) 104 MG/DL <150 HDL CHOLESTEROL (test code = 2220) 34 MG/DL >39 L CALC LDL CHOL (test code = 2237) 65 MG/DL <100 NOTE: CALCULATED LDL IS BASED ON KAYLYNN-FIGUEREDO METHOD WHICHINCLUDES ADJUSTABLE TRIGLYCERIDE:VLDL CHOLESTEROL RATIO.THIS FACTOR VARIES BY MEASURED TRIGLYCERIDE AND NON-HDLCHOLESTEROL CONCENTRATIONS WITH INCREASED CALCULATED LDL SEENIN HIGHER TRIGLYCERIDE OR LOWER NON-HDL SPECIMENS. FOR MOREINFORMATION, SEE CLIENT ANNOUNCEMENT AT [email or web address] RISK RATIO LDL/HDL (test code = 2238) 1.91 RATIO <3.22 COMPREHENSIVE METABOLIC [id number] 08:22:37* Test Item Value Reference Range Interpretation Comme nts GLUCOSE (test code = 2217) 117 MG/DL 70-99 H BUN (test code = 2208) 12 MG/DL 6-20 CREATININE (test code = 2214) 0.88 MG/DL 0.60-1.30 eGFR (2020 CKD-EPI) (test co de = ) 77 ML/MIN/1.73 >60 CALC BUN/CREAT (test code = 2235) 14 RATIO 6-28 SODIUM (test code = 223) 140 MEQ/L 133-146 POTASSIUM (test code = 2228) 4.6 MEQ/L 3.5-5.4 CHLORIDE (test code = 2215) 102 MEQ/L 95-107 CARBON DIOXIDE (test code = 2206) 25 MEQ/L 19-31 CALCIUM (test code = 2209) 9.2 MG/DL 8.5-10.5 PROTEIN, TOTAL (test code = 2229) 7.4 G/DL 6.1-8.3 ALBUMIN (test code = 2201) 4.1 G/DL 3.5-5.2 CALC GLOBULIN (test code = 2240) 3.3 G/DL 1.9-3.7 CALC A/G RATIO (test code = 2234) 1.2 RATIO 1.0-2.6 BILIRUBIN, TOTAL (test code = 220) 0.5 MG/DL <=1.2 ALKALINE PHOSPHATASE (test code = 2204) 130 U/L 40-136 AST (test code = 2218) 23 U/L 9-40 ALT (test code = 2219) 26 U/L 5-40 HEMOGLOBIN [id number] 04:36:09* Test Item Value Reference Range Interpretation Comme nts HEMOGLOBIN A1c (test code = 88944) 6.5 % 4.2-5.6 H [employer] GUIDELINES FOR HGB A1C: [...] TESTING PERFORMED AT [facility] [address] [place] [id number] BUILDER OPERATOR: KENNY FOWLER M.D. CLIA NUMBER [id number] [facility] [place]. [id number] LIPID [id number] 00:00:00* Test Item Value Reference Range Interpretation Comme nts CHOLESTEROL (test code = 2210) 118 MG/DL TRIGLYCERIDES (test code = 2232) 104 MG/DL HDL CHOLESTEROL (test code = 2220) 34 MG/DL CALC LDL CHOL (test code = 2237) 65 MG/DL RISK RATIO LDL/HDL (test cod e = 2238) 1.91 RATIO Feliciano BhattiCOMPREHENSIVE METABOLIC [id number] 00:00:00* Test Item Value Reference Range Interpretation Comme nts GLUCOSE (test code = 2217) 117 MG/DL BUN (test code = 2207) 12 MG/DL CREATININE (test code = 2214) 0.88 MG/DL eGFR (2020 CKD-EPI) (test co de = 33322) 77 ML/MIN/1.73 CALC BUN/CREAT (test code = 2235) 14 RATIO SODIUM (test code = 2231) 140 MEQ/L POTASSIUM (test code = 2228) 4.6 MEQ/L CHLORIDE (test code = 2215) 102 MEQ/L CARBON DIOXIDE (test code = 2206) 25 MEQ/L CALCIUM (test code = 2209) 9.2 MG/DL PROTEIN, TOTAL (test code = 222) 7.4 G/DL ALBUMIN (test code = 220) 4.1 G/DL CALC GLOBULIN (test code = 2240) 3.3 G/DL CALC A/G RATIO (test code = 2234) 1.2 RATIO BILIRUBIN, TOTAL (test code = 2207) 0.5 MG/DL ALKALINE PHOSPHATASE (test code = 2204) 130 U/L AST (test code = 2218) 23 U/L ALT (test code = 2219) 26 U/L Feliciano BhattiHEMOGLOBIN [id number] 00:00:00* Test Item Value Reference Range Interpretation Comme nts HEMOGLOBIN A1c (test code = 32025) 6.5 % Feliciano BhattiTSH, THIRD [id number] 00:00:00* Test Item Value Reference Range Interpretation Comme nts TSH, THIRD GENERATION (test code = 2821) 3.070 UIU/ML Feliciano BhattiLIPID [id number] 00:00:00* Test Item Value Reference Range Interpretation Comme nts CHOLESTEROL (test code = 2210) 118 MG/DL TRIGLYCERIDES (test code = 2232) 104 MG/DL HDL CHOLESTEROL (test code = 2220) 34 MG/DL CALC LDL CHOL (test code = 2237) 65 MG/DL RISK RATIO LDL/HDL (test cod e = 2238) 1.91 RATIO Feliciano BhattiCOMPREHENSIVE METABOLIC [id number] 00:00:00* Test Item Value Reference Range Interpretation Comme nts GLUCOSE (test code = 221) 117 MG/DL BUN (test code = 220) 12 MG/DL CREATININE (test code = 2214) 0.88 MG/DL eGFR (2020 CKD-EPI) (test co de = 48500) 77 ML/MIN/1.73 CALC BUN/CREAT (test code = 2235) 14 RATIO SODIUM (test code = 223) 140 MEQ/L POTASSIUM (test code = 2228) 4.6 MEQ/L CHLORIDE (test code = 2215) 102 MEQ/L CARBON DIOXIDE (test code = 2206) 25 MEQ/L CALCIUM (test code = 2209) 9.2 MG/DL PROTEIN, TOTAL (test code = 222) 7.4 G/DL ALBUMIN (test code = 2200) 4.1 G/DL CALC GLOBULIN (test code = 2240) 3.3 G/DL CALC A/G RATIO (test code = 2234) 1.2 RATIO BILIRUBIN, TOTAL (test code = 2206) 0.5 MG/DL ALKALINE PHOSPHATASE (test code = 4) 130 U/L AST (test code = 2218) 23 U/L ALT (test code = 2219) 26 U/L Feliciano BhattiHEMOGLOBIN [id number] 00:00:00* Test Item Value Reference Range Interpretation Comme nts HEMOGLOBIN A1c (test code = 63255) 6.5 % Feliciano BhattiTSH, THIRD [id number] 00:00:00* Test Item Value Reference Range Interpretation Comme nts TSH, THIRD GENERATION (test code = 2821) 3.070 UIU/ML Feliciano BhattiLIPID [id number] 00:00:00* Test Item Value Reference Range Interpretation Comme nts CHOLESTEROL (test code = 2210) 118 MG/DL TRIGLYCERIDES (test code = 2232) 104 MG/DL HDL CHOLESTEROL (test code = 2220) 34 MG/DL CALC LDL CHOL (test code = 2237) 65 MG/DL RISK RATIO LDL/HDL (test cod e = 2238) 1.91 RATIO Feliciano BhattiCOMPREHENSIVE METABOLIC [id number] 00:00:00* Test Item Value Reference Range Interpretation Comme nts GLUCOSE (test code = 2216) 117 MG/DL BUN (test code = 2208) 12 MG/DL CREATININE (test code = 2214) 0.88 MG/DL eGFR (2020 CKD-EPI) (test co de = 94532) 77 ML/MIN/1.73 CALC BUN/CREAT (test code = 2235) 14 RATIO SODIUM (test code = 2231) 140 MEQ/L POTASSIUM (test code = 2228) 4.6 MEQ/L CHLORIDE (test code = 2215) 102 MEQ/L CARBON DIOXIDE (test code = 2206) 25 MEQ/L CALCIUM (test code = 2209) 9.2 MG/DL PROTEIN, TOTAL (test code = 2229) 7.4 G/DL ALBUMIN (test code = 2201) 4.1 G/DL CALC GLOBULIN (test code = 2240) 3.3 G/DL CALC A/G RATIO (test code = 2234) 1.2 RATIO BILIRUBIN, TOTAL (test code = 2207) 0.5 MG/DL ALKALINE PHOSPHATASE (test code = 2204) 130 U/L AST (test code = 2218) 23 U/L ALT (test code = 2219) 26 U/L Feliciano BhattiHEMOGLOBIN [id number] 00:00:00* Test Item Value Reference Range Interpretation Comme nts HEMOGLOBIN A1c (test code = 95357) 6.5 % Feliciano BhattiTSH, THIRD [id number] 00:00:00* Test Item Value Reference Range Interpretation Comme nts TSH, THIRD GENERATION (test code = 2821) 3.070 UIU/ML Feliciano BhattiLIPID [id number] 00:00:00* Test Item Value Reference Range Interpretation Comme nts CHOLESTEROL (test code = 2210) 118 MG/DL TRIGLYCERIDES (test code = 2232) 104 MG/DL HDL CHOLESTEROL (test code = 2220) 34 MG/DL CALC LDL CHOL (test code = 2237) 65 MG/DL RISK RATIO LDL/HDL (test cod e = 2238) 1.91 RATIO Feliciano BhattiCOMPREHENSIVE METABOLIC [id number] 00:00:00* Test Item Value Reference Range Interpretation Comme nts GLUCOSE (test code = 2217) 117 MG/DL BUN (test code = 2208) 12 MG/DL CREATININE (test code = 2214) 0.88 MG/DL eGFR (2020 CKD-EPI) (test co de = 81776) 77 ML/MIN/1.73 CALC BUN/CREAT (test code = 2235) 14 RATIO SODIUM (test code = 2231) 140 MEQ/L POTASSIUM (test code = 2228) 4.6 MEQ/L CHLORIDE (test code = 2215) 102 MEQ/L CARBON DIOXIDE (test code = 2206) 25 MEQ/L CALCIUM (test code = 2209) 9.2 MG/DL PROTEIN, TOTAL (test code = 2229) 7.4 G/DL ALBUMIN (test code = 2201) 4.1 G/DL CALC GLOBULIN (test code = 2240) 3.3 G/DL CALC A/G RATIO (test code = 2234) 1.2 RATIO BILIRUBIN, TOTAL (test code = 2207) 0.5 MG/DL ALKALINE PHOSPHATASE (test code = 2204) 130 U/L AST (test code = 2218) 23 U/L ALT (test code = 2219) 26 U/L Feliciano BhattiHEMOGLOBIN [id number] 00:00:00* Test Item Value Reference Range Interpretation Comme jorge alberto HEMOGLOBIN A1c (test code = 24336) 6.5 % Feliciano DuncanH, THIRD [id number] 00:00:00* Test Item Value Reference Range Interpretation Comme jorge alberto TSH, THIRD GENERATION (test code = 2821) 3.070 UIU/ML Feliciano Richards AustinOCCULT BLD,FECAL,IMMUNOASSAY [id number] 11:33:32* Test Item Value Reference Range Interpretation Comme nts OCCULT BLD, FECAL (test code = 08718) NEGATIVE NEGATIVE UNLESS OTHER ZACARIAS INDICATED, ALL TESTING PERFORMED AT [facility] [address] [place] [address] BUILDER OPERATOR: KENNY FOWLER M.D. CLIA NUMBER [id number] [facility] [place]. [id number] OCCULT BLD,FECAL,IMMUNOASSAY [id number] 00:00:00* Test Item Value Reference Range Interpretation Comme nts OCCULT BLD, FECAL (test code = 03761) NEGATIVE Feliciano Richards AustinOCCULT BLD,FECAL,IMMUNOASSAY [id number] 00:00:00* Test Item Value Reference Range Interpretation Comme nts OCCULT BLD, FECAL (test code = 77001) NEGATIVE Feliciano F AustinOCCULT BLD,FECAL,IMMUNOASSAY [id number] 00:00:00* Test Item Value Reference Range Interpretation Comme jorge alberto OCCULT BLD, FECAL (test code = 28479) NEGATIVE Feliciano BhattiOCCULT BLD,FECAL,IMMUNOASSAY [id number] 00:00:00* Test Item Value Reference Range Interpretation Comme jorge alberto OCCULT BLD, FECAL (test code = 65080) NEGATIVE Feliciano BhattiHEMOGLOBIN [id number] 05:40:43* Test Item Value Reference Range Interpretation Comme jorge alberto HEMOGLOBIN A1c (test code = 13219) 6.6 % 4.2-5.6 H [employer] GUIDELINES FOR HGB A1C: [...] TESTING PERFORMED AT [facility] [address] [place] [address] BUILDER OPERATOR: KENNY FOWLER M.D. IA NUMBER [id number] [facility] [place]. [id number] TSH, THIRD [id number] 04:49:30* Test Item Value Reference Range Interpretation Comme jorge alberto TSH, THIRD GENERATION (test code = 2821) 2.390 UIU/ML 0.400-4.100 LIPID [id number] 04:45:56* Test Item Value Reference Range Interpretation [...] SPECIMENS. FOR MOREINFORMATION, SEE CLIENT ANNOUNCEMENT AT [email or web address] RISK RATIO LDL/HDL (test code = 223) 2.05 RATIO <3.22 COMPREHENSIVE METABOLIC [id number] 04:45:56* Test Item Value Reference Range Interpretation Comme nts GLUCOSE (test code = 2217) 134 MG/DL 70-99 H BUN (test code = 2207) 12 MG/DL 6-20 CREATININE (test code = 2214) 0.83 MG/DL 0.60-1.30 eGFR (2020 CKD-EPI) (test co de = 36275) 83 ML/MIN/1.73 >60 CALC BUN/CREAT (test code = 2235) 14 RATIO 6-28 SODIUM (test code = 223) 141 MEQ/L 133-146 POTASSIUM (test code = 2228) 4.4 MEQ/L 3.5-5.4 CHLORIDE (test code = 2215) 102 MEQ/L 95-107 CARBON DIOXIDE (test code = 2206) 28 MEQ/L 19-31 CALCIUM (test code = 220) 9.2 MG/DL 8.5-10.5 PROTEIN, TOTAL (test code = 2229) 7.6 G/DL 6.1-8.3 ALBUMIN (test code = 2201) 4.5 G/DL 3.5-5.2 CALC GLOBULIN (test code = 2240) 3.1 G/DL 1.9-3.7 CALC A/G RATIO (test code = 2234) 1.5 RATIO 1.0-2.6 BILIRUBIN, TOTAL (test code = 2206) 0.5 MG/DL <=1.2 ALKALINE PHOSPHATASE (test code = 4) 109 U/L 40-136 AST (test code = 2218) 21 U/L 9-40 ALT (test code = 2219) 21 U/L 5-40 LIPID [id number] 00:00:00* Test Item Value Reference Range Interpretation Comme nts CHOLESTEROL (test code = 2210) 135 MG/DL TRIGLYCERIDES (test code = 2232) 103 MG/DL HDL CHOLESTEROL (test code = 2220) 38 MG/DL CALC LDL CHOL (test code = 2237) 78 MG/DL RISK RATIO LDL/HDL (test cod e = 223) 2.05 RATIO Feliciano BhattiCOMPREHENSIVE METABOLIC [id number] 00:00:00* Test Item Value Reference Range Interpretation Comme nts GLUCOSE (test code = 2217) 134 MG/DL BUN (test code = 220) 12 MG/DL CREATININE (test code = 2214) 0.83 MG/DL eGFR (2020 CKD-EPI) (test co de = 23599) 83 ML/MIN/1.73 CALC BUN/CREAT (test code = 2235) 14 RATIO SODIUM (test code = 223) 141 MEQ/L POTASSIUM (test code = 2228) 4.4 MEQ/L CHLORIDE (test code = 2215) 102 MEQ/L CARBON DIOXIDE (test code = 2206) 28 MEQ/L CALCIUM (test code = 2209) 9.2 MG/DL PROTEIN, TOTAL (test code = 222) 7.6 G/DL ALBUMIN (test code = 220) 4.5 G/DL CALC GLOBULIN (test code = 2240) 3.1 G/DL CALC A/G RATIO (test code = 2234) 1.5 RATIO BILIRUBIN, TOTAL (test code = 220) 0.5 MG/DL ALKALINE PHOSPHATASE (test code = 2204) 109 U/L AST (test code = 2218) 21 U/L ALT (test code = 2219) 21 U/L Feliciano BhattiHEMOGLOBIN [id number] 00:00:00* Test Item Value Reference Range Interpretation Comme nts HEMOGLOBIN A1c (test code = 18203) 6.6 % Feliciano BhattiTSH, THIRD [id number] 00:00:00* Test Item Value Reference Range Interpretation Comme nts TSH, THIRD GENERATION (test code = 2821) 2.390 UIU/ML Feliciano BhattiLIPID [id number] 00:00:00* Test Item Value Reference Range Interpretation Comme nts CHOLESTEROL (test code = 2210) 135 MG/DL TRIGLYCERIDES (test code = 2232) 103 MG/DL HDL CHOLESTEROL (test code = 2220) 38 MG/DL CALC LDL CHOL (test code = 2237) 78 MG/DL RISK RATIO LDL/HDL (test cod e = 2238) 2.05 RATIO Feliciano BhattiCOMPREHENSIVE METABOLIC [id number] 00:00:00* Test Item Value Reference Range Interpretation Comme nts GLUCOSE (test code = 2217) 134 MG/DL BUN (test code = 2208) 12 MG/DL CREATININE (test code = 2214) 0.83 MG/DL eGFR (2020 CKD-EPI) (test co de = 37994) 83 ML/MIN/1.73 CALC BUN/CREAT (test code = 2235) 14 RATIO SODIUM (test code = 2231) 141 MEQ/L POTASSIUM (test code = 2228) 4.4 MEQ/L CHLORIDE (test code = 2215) 102 MEQ/L CARBON DIOXIDE (test code = 2206) 28 MEQ/L CALCIUM (test code = 2209) 9.2 MG/DL PROTEIN, TOTAL (test code = 2229) 7.6 G/DL ALBUMIN (test code = 2201) 4.5 G/DL CALC GLOBULIN (test code = 2240) 3.1 G/DL CALC A/G RATIO (test code = 2234) 1.5 RATIO BILIRUBIN, TOTAL (test code = 2207) 0.5 MG/DL ALKALINE PHOSPHATASE (test code = 2204) 109 U/L AST (test code = 2218) 21 U/L ALT (test code = 2219) 21 U/L Feliciano BhattiHEMOGLOBIN [id number] 00:00:00* Test Item Value Reference Range Interpretation Comme nts HEMOGLOBIN A1c (test code = 96053) 6.6 % Feliciano BhattiTSH, THIRD [id number] 00:00:00* Test Item Value Reference Range Interpretation Comme nts TSH, THIRD GENERATION (test code = 2821) 2.390 UIU/ML Feliciano BhattiLIPID [id number] 00:00:00* Test Item Value Reference Range Interpretation Comme nts CHOLESTEROL (test code = 2210) 135 MG/DL TRIGLYCERIDES (test code = 2232) 103 MG/DL HDL CHOLESTEROL (test code = 2220) 38 MG/DL CALC LDL CHOL (test code = 2237) 78 MG/DL RISK RATIO LDL/HDL (test cod e = 2238) 2.05 RATIO Feliciano BhattiCOMPREHENSIVE METABOLIC [id number] 00:00:00* Test Item Value Reference Range Interpretation Comme nts GLUCOSE (test code = 2217) 134 MG/DL BUN (test code = 2208) 12 MG/DL CREATININE (test code = 2214) 0.83 MG/DL eGFR (2020 CKD-EPI) (test co de = 13345) 83 ML/MIN/1.73 CALC BUN/CREAT (test code = 2235) 14 RATIO SODIUM (test code = 2231) 141 MEQ/L POTASSIUM (test code = 2228) 4.4 MEQ/L CHLORIDE (test code = 2215) 102 MEQ/L CARBON DIOXIDE (test code = 2206) 28 MEQ/L CALCIUM (test code = 2209) 9.2 MG/DL PROTEIN, TOTAL (test code = 2229) 7.6 G/DL ALBUMIN (test code = 2201) 4.5 G/DL CALC GLOBULIN (test code = 2240) 3.1 G/DL CALC A/G RATIO (test code = 2234) 1.5 RATIO BILIRUBIN, TOTAL (test code = 2207) 0.5 MG/DL ALKALINE PHOSPHATASE (test code = 2204) 109 U/L AST (test code = 2218) 21 U/L ALT (test code = 2219) 21 U/L Feliciano BhattiHEMOGLOBIN [id number] 00:00:00* Test Item Value Reference Range Interpretation Comme nts HEMOGLOBIN A1c (test code = 95660) 6.6 % Feliciano BhattiTSH, THIRD [id number] 00:00:00* Test Item Value Reference Range Interpretation Comme nts TSH, THIRD GENERATION (test code = 2821) 2.390 UIU/ML Feliciano BhattiLIPID [id number] 00:00:00* Test Item Value Reference Range Interpretation Comme nts CHOLESTEROL (test code = 2210) 135 MG/DL TRIGLYCERIDES (test code = 2232) 103 MG/DL HDL CHOLESTEROL (test code = 2220) 38 MG/DL CALC LDL CHOL (test code = 2237) 78 MG/DL RISK RATIO LDL/HDL (test cod e = 2238) 2.05 RATIO Feliciano BhattiCOMPREHENSIVE METABOLIC [id number] 00:00:00* Test Item Value Reference Range Interpretation Comme nts GLUCOSE (test code = 2217) 134 MG/DL BUN (test code = 2208) 12 MG/DL CREATININE (test code = 2214) 0.83 MG/DL eGFR (2020 CKD-EPI) (test co de = 26777) 83 ML/MIN/1.73 CALC BUN/CREAT (test code = 2235) 14 RATIO SODIUM (test code = 2231) 141 MEQ/L POTASSIUM (test code = 2228) 4.4 MEQ/L CHLORIDE (test code = 2215) 102 MEQ/L CARBON DIOXIDE (test code = 2206) 28 MEQ/L CALCIUM (test code = 2209) 9.2 MG/DL PROTEIN, TOTAL (test code = 2229) 7.6 G/DL ALBUMIN (test code = 2201) 4.5 G/DL CALC GLOBULIN (test code = 2240) 3.1 G/DL CALC A/G RATIO (test code = 2234) 1.5 RATIO BILIRUBIN, TOTAL (test code = 2207) 0.5 MG/DL ALKALINE PHOSPHATASE (test code = 2204) 109 U/L AST (test code = 2218) 21 U/L ALT (test code = 2219) 21 U/L Feliciano BhattiHEMOGLOBIN [id number] 00:00:00* Test Item Value Reference Range Interpretation Comme jorge alberto HEMOGLOBIN A1c (test code = 66289) 6.6 % Feliciano BhattiTSH, THIRD [id number] 00:00:00* Test Item Value Reference Range Interpretation Comme jorge alberto TSH, THIRD GENERATION (test code = 2821) 2.390 UIU/ML Feliciano BhattiVAGINAL PATHOGENS DNA [id number] 00:00:00* Test Item Value Reference Range Interpretation Comme nts MELVA SPECIES (test code = ) NEGATIVE G. VAGINALIS (test code = 01867) POSITIVE T. VAGINALIS (test code = 92513) NEGATIVE Feliciano Richards AustinVAGINAL PATHOGENS DNA [id number] 00:00:00* Test Item Value Reference Range Interpretation Comme nts MELVA SPECIES (test code = 20972) NEGATIVE G. VAGINALIS (test code = 95214) POSITIVE T. VAGINALIS (test code = 58301) NEGATIVE Feliciano BhattiURINALYSIS W/REFLEX [id number] 00:00:00* Test Item Value Reference Range Interpretation Comme nts COLOR (test code = 1501) YELLOW APPEARANCE (test code = 1502) CLOUDY SPECIFIC GRAVITY (test code = 1503) 1.019 LEUKOCYTE ESTERASE (test cod e = 1504) NEGATIVE NITRITE (test code = 1505) POSITIVE pH (test code = 1506) 5.5 PROTEIN (test code = 1507) NEGATIVE GLUCOSE (test code = 1508) NEGATIVE KETONES (test code = 1509) NEGATIVE UROBILINOGEN (test code = 1510) 0.2 MG/DL BILIRUBIN (test code = 1511) NEGATIVE OCCULT BLOOD (test code = 1512) NEGATIVE WHITE BLOOD CELLS (test code = 1513) 0-5 /HPF RED BLOOD CELLS (test code = 1514) 0-2 /HPF EPITHELIAL CELLS (test code = 30541) 6-10 /HPF BACTERIA (test code = 1515) >3+ CASTS, HYALINE (test code = 1517) TRACE Feliciano Richards AustinVAGINAL PATHOGENS DNA [id number] 00:00:00* Test Item Value Reference Range Interpretation Comme nts MELVA SPECIES (test code = ) NEGATIVE G. VAGINALIS (test code = ) POSITIVE T. VAGINALIS (test code = ) NEGATIVE Feliciano Richards AustinURINALYSIS W/REFLEX [id number] 00:00:00* Test Item Value Reference Range Interpretation Comme nts COLOR (test code = 1501) YELLOW APPEARANCE (test code = 1502) CLOUDY SPECIFIC GRAVITY (test code = 1503) 1.019 LEUKOCYTE ESTERASE (test cod e = 1504) NEGATIVE NITRITE (test code = 1505) POSITIVE pH (test code = 1506) 5.5 PROTEIN (test code = 1507) NEGATIVE GLUCOSE (test code = 1508) NEGATIVE KETONES (test code = 1509) NEGATIVE UROBILINOGEN (test code = 1510) 0.2 MG/DL BILIRUBIN (test code = 1511) NEGATIVE OCCULT BLOOD (test code = 1512) NEGATIVE WHITE BLOOD CELLS (test code = 1513) 0-5 /HPF RED BLOOD CELLS (test code = 1514) 0-2 /HPF EPITHELIAL CELLS (test code = 38644) 6-10 /HPF BACTERIA (test code = 1515) >3+ CASTS, HYALINE (test code = 1517) TRACE Feliciano Richards AustinURINALYSIS W/REFLEX [id number] 00:00:00* Test Item Value Reference Range Interpretation Comme nts COLOR (test code = 1501) YELLOW APPEARANCE (test code = 1502) CLOUDY SPECIFIC GRAVITY (test code = 1503) 1.019 LEUKOCYTE ESTERASE (test cod e = 1504) NEGATIVE NITRITE (test code = 1505) POSITIVE pH (test code = 1506) 5.5 PROTEIN (test code = 1507) NEGATIVE GLUCOSE (test code = 1508) NEGATIVE KETONES (test code = 1509) NEGATIVE UROBILINOGEN (test code = 1510) 0.2 MG/DL BILIRUBIN (test code = 1511) NEGATIVE OCCULT BLOOD (test code = 1512) NEGATIVE WHITE BLOOD CELLS (test code = 1513) 0-5 /HPF RED BLOOD CELLS (test code = 1514) 0-2 /HPF EPITHELIAL CELLS (test code = 19294) 6-10 /HPF BACTERIA (test code = 1515) >3+ CASTS, HYALINE (test code = 1517) TRACE Feliciano BhattiVAGINAL PATHOGENS DNA [id number] 00:00:00* Test Item Value Reference Range Interpretation Comme nts MELVA SPECIES (test code = ) NEGATIVE G. VAGINALIS (test code = ) POSITIVE T. VAGINALIS (test code = ) NEGATIVE Feliciano Richards AustinURINALYSIS W/REFLEX [id number] 00:00:00* Test Item Value Reference Range Interpretation Comme nts COLOR (test code = 1501) YELLOW APPEARANCE (test code = 1502) CLOUDY SPECIFIC GRAVITY (test code = 1503) 1.019 LEUKOCYTE ESTERASE (test cod e = 1504) NEGATIVE NITRITE (test code = 1505) POSITIVE pH (test code = 1506) 5.5 PROTEIN (test code = 1507) NEGATIVE GLUCOSE (test code = 1508) NEGATIVE KETONES (test code = 1509) NEGATIVE UROBILINOGEN (test code = 1510) 0.2 MG/DL BILIRUBIN (test code = 1511) NEGATIVE OCCULT BLOOD (test code = 1512) NEGATIVE WHITE BLOOD CELLS (test code = 1513) 0-5 /HPF RED BLOOD CELLS (test code = 1514) 0-2 /HPF EPITHELIAL CELLS (test code = 79535) 6-10 /HPF BACTERIA (test code = 1515) >3+ CASTS, HYALINE (test code = 1517) TRACE Feliciano BhattiNOTE:2022-12-31 06:03:51* Test Item Value Reference Range Interpretation Comme nts NOTE: (test code = 998) (NOTE) IN ACCORDANCE [facility] FEDERAL GUIDELINES REQUIRING ALL VERBAL REQUESTS FOR LABORATORY TESTS TO BE ACCOMPANIED BY WRITTEN AUTHORIZATION WITHIN 30 DAYS OF THIS REQUEST, PLEASE SIGN BELOW AND RETURN A COPY OF THIS REPORT BY FAX TO THE LABORATORY SCANNING DEPARTMENT AT [phone]. PHYSICIAN'S SIGNATURE DATE UNLESS OTHERWISE INDICATED, ALL TESTING PERFORMED AT [facility] [address] [place] [address] BUILDER OPERATOR: KENNY FOWLER M.D. [place] NUMBER [id number] [facility] [place]. [id number] TSH, THIRD [id number] 02:05:53* Test Item Value Reference Range Interpretation Comme nts TSH, THIRD GENERATION (test code = 2821) 4.810 UIU/ML 0.400-4.100 H NOTE: [ADDED]2022-12-31 00:00:00* Test Item Value Reference Range Interpretation Comme nts NOTE: (test code = 998) (NOTE) BIGG Smith GENERATION [ADDED]2022-12-31 00:00:00* Test Item Value Reference Range Interpretation Comme nts TSH, THIRD GENERATION (test code = 2821) 4.810 UIU/ML Feliciano Richards AustinNOTE: [ADDED]2022-12-31 00:00:00* Test Item Value Reference Range Interpretation Comme nts NOTE: (test code = 998) (NOTE) BIGG Smith GENERATION [ADDED]2022-12-31 00:00:00* Test Item Value Reference Range Interpretation Comme nts TSH, THIRD GENERATION (test code = 2821) 4.810 UIU/ML Feliciano Richards AustinNOTE: [ADDED]2022-12-31 00:00:00* Test Item Value Reference Range Interpretation Comme nts NOTE: (test code = 998) (NOTE) BIGG Smith GENERATION [ADDED]2022-12-31 00:00:00* Test Item Value Reference Range Interpretation Comme nts TSH, THIRD GENERATION (test code = 2821) 4.810 UIU/ML Feliciano iRchards AustinNOTE: [ADDED]2022-12-31 00:00:00* Test Item Value Reference Range Interpretation Comme nts NOTE: (test code = 998) (NOTE) Feliciano F AustinTSH, THIRD GENERATION [ADDED]2022-12-31 00:00:00* Test Item Value Reference Range Interpretation Comme nts TSH, THIRD GENERATION (test code = 2821) 4.810 UIU/ML Feliciano BhattiLIPID [id number] 05:14:23* Test Item Value Reference Range Interpretation [...] SPECIMENS. FOR MOREINFORMATION, SEE CLIENT ANNOUNCEMENT AT [email or web address] RISK RATIO LDL/HDL (test code = 2238) 2.05 RATIO <3.22 COMPREHENSIVE METABOLIC [id number] 05:14:23* Test Item Value Reference Range Interpretation Comme nts GLUCOSE (test code = 2217) 125 MG/DL 70-99 H BUN (test code = 2208) 13 MG/DL 6-20 CREATININE (test code = 2214) 0.88 MG/DL 0.60-1.30 eGFR (2020 CKD-EPI) (test code = 74565) 77 ML/MIN/1.73 >60 CALC BUN/CREAT (test code = 2235) 15 RATIO 6-28 SODIUM (test code = 223) 141 MEQ/L 133-146 POTASSIUM (test code = 2228) 5.0 MEQ/L 3.5-5.4 CHLORIDE (test code = 2215) 103 MEQ/L 95-107 CARBON DIOXIDE (test code = 2206) 28 MEQ/L 19-31 CALCIUM (test code = 2209) 9.3 MG/DL 8.5-10.5 PROTEIN, TOTAL (test code = 222) 6.9 G/DL 6.1-8.3 ALBUMIN (test code = 220) 4.2 G/DL 3.5-5.2 CALC GLOBULIN (test code = 224) 2.7 G/DL 1.9-3.7 CALC A/G RATIO (test code = 2234) 1.6 RATIO 1.0-2.6 BILIRUBIN, TOTAL (test code = 2207) 0.3 MG/DL See_Comment [Automated me ssage] The system which generated this result transmitted reference range: <=1.2. The reference range was not used to interpret this result as normal/abnormal. ALKALINE PHOSPHATASE (test code = 2204) 95 U/L 40-136 AST (test code = 2218) 19 U/L 9-40 ALT (test code = 2219) 21 U/L 5-40 UNLESS OTHERWISE INDICATED, ALL TESTING PERFORMED AT [facility] [address] [place] [address] BUILDER OPERATOR: KENNY FOWLER M.D. IA NUMBER [id number] [facility] [place]. [id number] HEMOGLOBIN [id number] 02:49:55* Test Item Value Reference Range Interpretation Comme nts HEMOGLOBIN A1c (test code = 80579) 6.6 % 4.2-5.6 H [employer] GUIDELINES FOR HGB A1C: [...] ETC.). CONSIDER ALTERNATE TESTING OR LABORATORY CONSULTATION. LIPID [id number] 00:00:00* Test Item Value Reference Range Interpretation Comme nts CHOLESTEROL (test code = 2210) 138 MG/DL TRIGLYCERIDES (test code = 2232) 150 MG/DL HDL CHOLESTEROL (test code = 2220) 37 MG/DL CALC LDL CHOL (test code = 2237) 76 MG/DL RISK RATIO LDL/HDL (test cod e = 2238) 2.05 RATIO Feliciano BhattiCOMPREHENSIVE METABOLIC [id number] 00:00:00* Test Item Value Reference Range Interpretation Comme nts GLUCOSE (test code = 2217) 125 MG/DL BUN (test code = 2208) 13 MG/DL CREATININE (test code = 2214) 0.88 MG/DL eGFR (2020 CKD-EPI) (test co de = 57922) 77 ML/MIN/1.73 CALC BUN/CREAT (test code = 2235) 15 RATIO SODIUM (test code = 2231) 141 MEQ/L POTASSIUM (test code = 2228) 5.0 MEQ/L CHLORIDE (test code = 2215) 103 MEQ/L CARBON DIOXIDE (test code = 2206) 28 MEQ/L CALCIUM (test code = 2209) 9.3 MG/DL PROTEIN, TOTAL (test code = 2229) 6.9 G/DL ALBUMIN (test code = 2201) 4.2 G/DL CALC GLOBULIN (test code = 2240) 2.7 G/DL CALC A/G RATIO (test code = 2234) 1.6 RATIO BILIRUBIN, TOTAL (test code = 2207) 0.3 MG/DL ALKALINE PHOSPHATASE (test code = 2204) 95 U/L AST (test code = 2218) 19 U/L ALT (test code = 2219) 21 U/L Feliciano BhattiHEMOGLOBIN [id number] 00:00:00* Test Item Value Reference Range Interpretation Comme nts HEMOGLOBIN A1c (test code = 49389) 6.6 % Feliciano BhattiLIPID [id number] 00:00:00* Test Item Value Reference Range Interpretation Comme nts CHOLESTEROL (test code = 2210) 138 MG/DL TRIGLYCERIDES (test code = 2232) 150 MG/DL HDL CHOLESTEROL (test code = 2220) 37 MG/DL CALC LDL CHOL (test code = 2237) 76 MG/DL RISK RATIO LDL/HDL (test cod e = 2238) 2.05 RATIO Feliciano BhattiCOMPREHENSIVE METABOLIC [id number] 00:00:00* Test Item Value Reference Range Interpretation Comme nts GLUCOSE (test code = 2217) 125 MG/DL BUN (test code = 2208) 13 MG/DL CREATININE (test code = 2214) 0.88 MG/DL eGFR (2020 CKD-EPI) (test co de = 91109) 77 ML/MIN/1.73 CALC BUN/CREAT (test code = 2235) 15 RATIO SODIUM (test code = 2231) 141 MEQ/L POTASSIUM (test code = 2228) 5.0 MEQ/L CHLORIDE (test code = 2215) 103 MEQ/L CARBON DIOXIDE (test code = 2206) 28 MEQ/L CALCIUM (test code = 2209) 9.3 MG/DL PROTEIN, TOTAL (test code = 2229) 6.9 G/DL ALBUMIN (test code = 2201) 4.2 G/DL CALC GLOBULIN (test code = 2240) 2.7 G/DL CALC A/G RATIO (test code = 2234) 1.6 RATIO BILIRUBIN, TOTAL (test code = 2207) 0.3 MG/DL ALKALINE PHOSPHATASE (test code = 2204) 95 U/L AST (test code = 2218) 19 U/L ALT (test code = 2219) 21 U/L Feliciano BhattiHEMOGLOBIN [id number] 00:00:00* Test Item Value Reference Range Interpretation Comme nts HEMOGLOBIN A1c (test code = 47377) 6.6 % Feliciano BhattiLIPID [id number] 00:00:00* Test Item Value Reference Range Interpretation Comme nts CHOLESTEROL (test code = 2210) 138 MG/DL TRIGLYCERIDES (test code = 2232) 150 MG/DL HDL CHOLESTEROL (test code = 2220) 37 MG/DL CALC LDL CHOL (test code = 2237) 76 MG/DL RISK RATIO LDL/HDL (test cod e = 2238) 2.05 RATIO Feliciano BhattiCOMPREHENSIVE METABOLIC [id number] 00:00:00* Test Item Value Reference Range Interpretation Comme nts GLUCOSE (test code = 2217) 125 MG/DL BUN (test code = 2208) 13 MG/DL CREATININE (test code = 2214) 0.88 MG/DL eGFR (2020 CKD-EPI) (test co de = 66845) 77 ML/MIN/1.73 CALC BUN/CREAT (test code = 2235) 15 RATIO SODIUM (test code = 2231) 141 MEQ/L POTASSIUM (test code = 2228) 5.0 MEQ/L CHLORIDE (test code = 2215) 103 MEQ/L CARBON DIOXIDE (test code = 2206) 28 MEQ/L CALCIUM (test code = 2209) 9.3 MG/DL PROTEIN, TOTAL (test code = 2229) 6.9 G/DL ALBUMIN (test code = 2201) 4.2 G/DL CALC GLOBULIN (test code = 2240) 2.7 G/DL CALC A/G RATIO (test code = 2234) 1.6 RATIO BILIRUBIN, TOTAL (test code = 2207) 0.3 MG/DL ALKALINE PHOSPHATASE (test code = 2204) 95 U/L AST (test code = 2218) 19 U/L ALT (test code = 2219) 21 U/L Feliciano BhattiHEMOGLOBIN [id number] 00:00:00* Test Item Value Reference Range Interpretation Comme nts HEMOGLOBIN A1c (test code = 50421) 6.6 % Feliciano Richards AustinLIPID [id number] 00:00:00* Test Item Value Reference Range Interpretation Comme nts CHOLESTEROL (test code = 2210) 138 MG/DL TRIGLYCERIDES (test code = 2232) 150 MG/DL HDL CHOLESTEROL (test code = 2220) 37 MG/DL CALC LDL CHOL (test code = 2237) 76 MG/DL RISK RATIO LDL/HDL (test cod e = 2238) 2.05 RATIO Feliciano BhattiCOMPREHENSIVE METABOLIC [id number] 00:00:00* Test Item Value Reference Range Interpretation Comme nts GLUCOSE (test code = 2217) 125 MG/DL BUN (test code = 2208) 13 MG/DL CREATININE (test code = 2214) 0.88 MG/DL eGFR (2020 CKD-EPI) (test co de = 56987) 77 ML/MIN/1.73 CALC BUN/CREAT (test code = 2235) 15 RATIO SODIUM (test code = 2231) 141 MEQ/L POTASSIUM (test code = 2228) 5.0 MEQ/L CHLORIDE (test code = 2215) 103 MEQ/L CARBON DIOXIDE (test code = 2206) 28 MEQ/L CALCIUM (test code = 2209) 9.3 MG/DL PROTEIN, TOTAL (test code = 2229) 6.9 G/DL ALBUMIN (test code = 2201) 4.2 G/DL CALC GLOBULIN (test code = 2240) 2.7 G/DL CALC A/G RATIO (test code = 2234) 1.6 RATIO BILIRUBIN, TOTAL (test code = 2207) 0.3 MG/DL ALKALINE PHOSPHATASE (test code = 2204) 95 U/L AST (test code = 2218) 19 U/L ALT (test code = 2219) 21 U/L Feliciano Richards AustinHEMOGLOBIN [id number] 00:00:00* Test Item Value Reference Range Interpretation Comme nts HEMOGLOBIN A1c (test code = 60557) 6.6 % Feliciano BhattiLIPID [id number] 00:00:00* Test Item Value Reference Range Interpretation Comme nts CHOLESTEROL (test code = 2210) 187 MG/DL TRIGLYCERIDES (test code = 2232) 202 MG/DL HDL CHOLESTEROL (test code = 2220) 31 MG/DL CALC LDL CHOL (test code = 2237) 124 MG/DL RISK RATIO LDL/HDL (test cod e = 2238) 4.00 RATIO Feliciano BhattiCOMPREHENSIVE METABOLIC [id number] 00:00:00* Test Item Value Reference Range Interpretation Comme nts GLUCOSE (test code = 2217) 129 MG/DL BUN (test code = 2208) 10 MG/DL CREATININE (test code = 2214) 0.85 MG/DL eGFR (2020 CKD-EPI) (test co de = 40161) 80 ML/MIN/1.73 CALC BUN/CREAT (test code = 2235) 12 RATIO SODIUM (test code = 2231) 137 MEQ/L POTASSIUM (test code = 2228) 4.7 MEQ/L CHLORIDE (test code = 2215) 101 MEQ/L CARBON DIOXIDE (test code = 2206) 27 MEQ/L CALCIUM (test code = 2209) 9.0 MG/DL PROTEIN, TOTAL (test code = 2229) 7.1 G/DL ALBUMIN (test code = 2201) 4.3 G/DL CALC GLOBULIN (test code = 2240) 2.8 G/DL CALC A/G RATIO (test code = 2234) 1.5 RATIO BILIRUBIN, TOTAL (test code = 2207) 0.5 MG/DL ALKALINE PHOSPHATASE (test code = 2204) 104 U/L AST (test code = 2218) 26 U/L ALT (test code = 2219) 24 U/L Feliciano BhattiTSH, THIRD [id number] 00:00:00* Test Item Value Reference Range Interpretation Comme nts TSH, THIRD GENERATION (test code = 2821) 1.980 UIU/ML Feliciano BhattiLIPID [id number] 00:00:00* Test Item Value Reference Range Interpretation Comme nts CHOLESTEROL (test code = 2210) 187 MG/DL TRIGLYCERIDES (test code = 2232) 202 MG/DL HDL CHOLESTEROL (test code = 2220) 31 MG/DL CALC LDL CHOL (test code = 2237) 124 MG/DL RISK RATIO LDL/HDL (test cod e = 2238) 4.00 RATIO Feliciano BhattiCOMPREHENSIVE METABOLIC [id number] 00:00:00* Test Item Value Reference Range Interpretation Comme nts GLUCOSE (test code = 2217) 129 MG/DL BUN (test code = 2208) 10 MG/DL CREATININE (test code = 2214) 0.85 MG/DL eGFR (2020 CKD-EPI) (test co de = 27331) 80 ML/MIN/1.73 CALC BUN/CREAT (test code = 2235) 12 RATIO SODIUM (test code = 2231) 137 MEQ/L POTASSIUM (test code = 2228) 4.7 MEQ/L CHLORIDE (test code = 2215) 101 MEQ/L CARBON DIOXIDE (test code = 2206) 27 MEQ/L CALCIUM (test code = 2209) 9.0 MG/DL PROTEIN, TOTAL (test code = 2229) 7.1 G/DL ALBUMIN (test code = 2201) 4.3 G/DL CALC GLOBULIN (test code = 2240) 2.8 G/DL CALC A/G RATIO (test code = 2234) 1.5 RATIO BILIRUBIN, TOTAL (test code = 2207) 0.5 MG/DL ALKALINE PHOSPHATASE (test code = 2204) 104 U/L AST (test code = 2218) 26 U/L ALT (test code = 2219) 24 U/L Feliciano BhattiTSH, THIRD [id number] 00:00:00* Test Item Value Reference Range Interpretation Comme nts TSH, THIRD GENERATION (test code = 2821) 1.980 UIU/ML Feliciano BhattiLIPID [id number] 00:00:00* Test Item Value Reference Range Interpretation Comme nts CHOLESTEROL (test code = 2210) 187 MG/DL TRIGLYCERIDES (test code = 2232) 202 MG/DL HDL CHOLESTEROL (test code = 2220) 31 MG/DL CALC LDL CHOL (test code = 2237) 124 MG/DL RISK RATIO LDL/HDL (test cod e = 2238) 4.00 RATIO Feliciano BhattiCOMPREHENSIVE METABOLIC [id number] 00:00:00* Test Item Value Reference Range Interpretation Comme nts GLUCOSE (test code = 2217) 129 MG/DL BUN (test code = 2208) 10 MG/DL CREATININE (test code = 2214) 0.85 MG/DL eGFR (2020 CKD-EPI) (test co de = 73582) 80 ML/MIN/1.73 CALC BUN/CREAT (test code = 2235) 12 RATIO SODIUM (test code = 2231) 137 MEQ/L POTASSIUM (test code = 2228) 4.7 MEQ/L CHLORIDE (test code = 2215) 101 MEQ/L CARBON DIOXIDE (test code = 2206) 27 MEQ/L CALCIUM (test code = 2209) 9.0 MG/DL PROTEIN, TOTAL (test code = 2229) 7.1 G/DL ALBUMIN (test code = 2201) 4.3 G/DL CALC GLOBULIN (test code = 2240) 2.8 G/DL CALC A/G RATIO (test code = 2234) 1.5 RATIO BILIRUBIN, TOTAL (test code = 2207) 0.5 MG/DL ALKALINE PHOSPHATASE (test code = 2204) 104 U/L AST (test code = 2218) 26 U/L ALT (test code = 2219) 24 U/L Feliciano BhattiTSH, THIRD [id number] 00:00:00* Test Item Value Reference Range Interpretation Comme nts TSH, THIRD GENERATION (test code = 2821) 1.980 UIU/ML Feliciano BhattiLIPID [id number] 00:00:00* Test Item Value Reference Range Interpretation Comme nts CHOLESTEROL (test code = 2210) 187 MG/DL TRIGLYCERIDES (test code = 2232) 202 MG/DL HDL CHOLESTEROL (test code = 2220) 31 MG/DL CALC LDL CHOL (test code = 2237) 124 MG/DL RISK RATIO LDL/HDL (test cod e = 2238) 4.00 RATIO Feliciano BhattiCOMPREHENSIVE METABOLIC [id number] 00:00:00* Test Item Value Reference Range Interpretation Comme nts GLUCOSE (test code = 2217) 129 MG/DL BUN (test code = 2208) 10 MG/DL CREATININE (test code = 2214) 0.85 MG/DL eGFR (2020 CKD-EPI) (test co de = 35488) 80 ML/MIN/1.73 CALC BUN/CREAT (test code = 2235) 12 RATIO SODIUM (test code = 2231) 137 MEQ/L POTASSIUM (test code = 2228) 4.7 MEQ/L CHLORIDE (test code = 2215) 101 MEQ/L CARBON DIOXIDE (test code = 2206) 27 MEQ/L CALCIUM (test code = 2209) 9.0 MG/DL PROTEIN, TOTAL (test code = 2229) 7.1 G/DL ALBUMIN (test code = 2201) 4.3 G/DL CALC GLOBULIN (test code = 2240) 2.8 G/DL CALC A/G RATIO (test code = 2234) 1.5 RATIO BILIRUBIN, TOTAL (test code = 2207) 0.5 MG/DL ALKALINE PHOSPHATASE (test code = 2204) 104 U/L AST (test code = 2218) 26 U/L ALT (test code = 2219) 24 U/L Feliciano Rosa, THIRD [id number] 00:00:00* Test Item Value Reference Range Interpretation Comme nts TSH, THIRD GENERATION (test code = 2821) 1.980 UIU/ML Feliciano Bruce (ANTI-NUCLEAR AB) WITH REFLEX [id number] 23:47:01* Test Item Value Reference Range Interpretation Comme nts ANTI-NUCLEAR ANTIBODIES (test code = 3506) NEGATIVE NEGATIVE Methodology is I ndirect Immunofluorescent Assay (IFA) with a titering system using [id number] cells (Hep2 cells transfected with SS-A/Ro). LISA PATTERN (REPORTED TITER) (test code = 07861) SEE BELOW HOMOGENEOUS (test code = 01184) NEGATIVE TITER NEGATIVE SPECKLED (test code = 283667) NEGATIVE TITER NEGATIVE DENSE FINE SPECKLED (test code = 24397) NEGATIVE TITER NEGATIVE CENTROMERE (test code = 635684) NEGATIVE TITER NEGATIVE COARSE SPECKLED (test code = 008354) NEGATIVE TITER NEGATIVE DISCRETE NUCLEAR DOTS (test code = 063827) NEGATIVE TITER NEGATIVE NUCLEOLAR (test code = 160891) NEGATIVE TITER NEGATIVE NUCLEAR MEMBRANE (test code = 202383) NEGATIVE TITER NEGATIVE CYTO. RETICULAR (NOHEMI) (test code = 480060) NEGATIVE NEGATIVE COMMENTS (test code = 974853) NONE METHOD (test code = 31925) (NOTE) NOTE: EFFECTIVE 01/06/2022, METHOD IS TRANSITIONED TO THE [employer] NOVA VIEW IFA PLATFORM. THE METHOD INCLUDES A SCREENTHRESHOLD OF 1:80, DIGITIZED AND COMPUTER ALGORITHM-ASSISTEDINTER PRETATION OF TITERS AND DIGITAL PATTERNS, AND HEp-2 CELLLINE SUBSTRATE. ADDITIONAL UNUSUAL PATTERNS WILL BE GIVEN ASCOMMENTS. FOR MORE INFORMATION, SEE [email or web address] [facility] has important pathology staff changes effective 07/30/2022. New pathology staff will provide uninterrupted, excellent patient care and clinical consultation. See URL: [email or web address]. UNLESS OTHERWISE INDICATED, ALL TESTING PERFORMED AT [facility] [address] [place] [address] BUILDER OPERATOR: ISSA GOLD M.D. IA NUMBER [id number] [facility] [place]. [id number] TSH, THIRD [id number] 06:11:51* Test Item Value Reference Range Interpretation Comme [facility] TSH, THIRD GENERATION (test code = 2821) 5.760 UIU/ML 0.400-4.100 H HEMOGLOBIN [id number] 04:55:40* Test Item Value Reference Range Interpretation Comme nts HEMOGLOBIN A1c (test code = 77725) 6.6 % 4.2-5.6 H [employer] GUIDELINES FOR HGB A1C: [...] ALTERNATE TESTING OR LABORATORY CONSULTATION. COMPREHENSIVE METABOLIC [id number] 04:32:58* Test Item Value Reference Range Interpretation Comme nts GLUCOSE (test code = 2217) 113 MG/DL 70-99 H BUN (test code = 2208) 15 MG/DL 6-20 CREATININE (test code = 2214) 0.76 MG/DL 0.60-1.30 eGFR (2020 CKD-EPI) (test code = 23760) 92 ML/MIN/1.73 >60 CALC BUN/CREAT (test code = 2235) 20 RATIO 6-28 SODIUM (test code = 2231) 140 MEQ/L 133-146 POTASSIUM (test code = 2228) 4.4 MEQ/L 3.5-5.4 CHLORIDE (test code = 2215) 104 MEQ/L 95-107 CARBON DIOXIDE (test code = 2205) 26 MEQ/L 19-31 CALCIUM (test code = 2208) 9.0 MG/DL 8.5-10.5 PROTEIN, TOTAL (test code = 2228) 7.1 G/DL 6.1-8.3 ALBUMIN (test code = 2200) 4.3 G/DL 3.5-5.2 CALC GLOBULIN (test code = 2240) 2.8 G/DL 1.9-3.7 CALC A/G RATIO (test code = 2233) 1.5 RATIO 1.0-2.6 BILIRUBIN, TOTAL (test code = 2206) 0.4 MG/DL See_Comment [Automated me ssage] The system which generated this result transmitted reference range: <=1.2. The reference range was not used to interpret this result as normal/abnormal. ALKALINE PHOSPHATASE (test code = 2203) 111 U/L 40-136 AST (test code = 2217) 29 U/L 9-40 ALT (test code = 221) 28 U/L 5-40 LIPID [id number] 04:32:58* Test Item Value Reference Range Interpretation [...] SPECIMENS. FOR MOREINFORMATION, SEE CLIENT ANNOUNCEMENT AT [email or web address] [email or web address] RATIO LDL/HDL (test code = 223) 2.76 RATIO <3.22 COMPREHENSIVE METABOLIC [id number] 00:00:00* Test Item Value Reference Range Interpretation Comme nts GLUCOSE (test code = 2216) 113 MG/DL BUN (test code = 2208) 15 MG/DL CREATININE (test code = 2214) 0.76 MG/DL eGFR (2020 CKD-EPI) (test co de = 66512) 92 ML/MIN/1.73 CALC BUN/CREAT (test code = 2235) 20 RATIO SODIUM (test code = 2231) 140 MEQ/L POTASSIUM (test code = 2228) 4.4 MEQ/L CHLORIDE (test code = 2215) 104 MEQ/L CARBON DIOXIDE (test code = 2206) 26 MEQ/L CALCIUM (test code = 2209) 9.0 MG/DL PROTEIN, TOTAL (test code = 2229) 7.1 G/DL ALBUMIN (test code = 2201) 4.3 G/DL CALC GLOBULIN (test code = 2240) 2.8 G/DL CALC A/G RATIO (test code = 2234) 1.5 RATIO BILIRUBIN, TOTAL (test code = 2207) 0.4 MG/DL ALKALINE PHOSPHATASE (test code = 2204) 111 U/L AST (test code = 2218) 29 U/L ALT (test code = 2219) 28 U/L Feliciano BhattiLIPID [id number] 00:00:00* Test Item Value Reference Range Interpretation Comme nts CHOLESTEROL (test code = 2210) 157 MG/DL TRIGLYCERIDES (test code = 2232) 194 MG/DL HDL CHOLESTEROL (test code = 2220) 34 MG/DL CALC LDL CHOL (test code = 2237) 94 MG/DL RISK RATIO LDL/HDL (test cod e = 2238) 2.76 RATIO Feliciano BhattiHEMOGLOBIN [id number] 00:00:00* Test Item Value Reference Range Interpretation Comme nts HEMOGLOBIN A1c (test code = 03094) 6.6 % Feliciano Richards PerlaH, THIRD [id number] 00:00:00* Test Item Value Reference Range Interpretation Comme nts TSH, THIRD GENERATION (test code = 2821) 5.760 UIU/ML Feliciano Richadrs Janis (ANTI-NUCLEAR AB) WITH REFLEX [id number] 00:00:00* Test Item Value Reference Range Interpretation Comme nts ANTI-NUCLEAR ANTIBODIES (kalia t code = 3506) NEGATIVE LISA PATTERN (REPORTED TITER) (test code = 48230) SEE BELOW HOMOGENEOUS (test code = 58807) NEGATIVE TITER SPECKLED (test code = 100687) NEGATIVE TITER DENSE FINE SPECKLED (test co de = 52436) NEGATIVE TITER CENTROMERE (test code = 622707) NEGATIVE TITER COARSE SPECKLED (test code = 948851) NEGATIVE TITER DISCRETE NUCLEAR DOTS (test code = 516788) NEGATIVE TITER NUCLEOLAR (test code = 650630) NEGATIVE TITER NUCLEAR MEMBRANE (test code = 506665) NEGATIVE TITER CYTO. RETICULAR (NOHEMI) (test code = 451578) NEGATIVE COMMENTS (test code = 133291) NONE METHOD (test code = 77156) (NOTE) Feliciano BhattiCOMPREHENSIVE METABOLIC [id number] 00:00:00* Test Item Value Reference Range Interpretation Comme nts GLUCOSE (test code = 2217) 113 MG/DL BUN (test code = 2208) 15 MG/DL CREATININE (test code = 2214) 0.76 MG/DL eGFR (2020 CKD-EPI) (test co de = 23523) 92 ML/MIN/1.73 CALC BUN/CREAT (test code = 2235) 20 RATIO SODIUM (test code = 2231) 140 MEQ/L POTASSIUM (test code = 2228) 4.4 MEQ/L CHLORIDE (test code = 2215) 104 MEQ/L CARBON DIOXIDE (test code = 2206) 26 MEQ/L CALCIUM (test code = 2209) 9.0 MG/DL PROTEIN, TOTAL (test code = 2229) 7.1 G/DL ALBUMIN (test code = 2201) 4.3 G/DL CALC GLOBULIN (test code = 2240) 2.8 G/DL CALC A/G RATIO (test code = 2234) 1.5 RATIO BILIRUBIN, TOTAL (test code = 2207) 0.4 MG/DL ALKALINE PHOSPHATASE (test code = 2204) 111 U/L AST (test code = 2218) 29 U/L ALT (test code = 2219) 28 U/L Feliciano BhattiLIPID [id number] 00:00:00* Test Item Value Reference Range Interpretation Comme nts CHOLESTEROL (test code = 2210) 157 MG/DL TRIGLYCERIDES (test code = 2232) 194 MG/DL HDL CHOLESTEROL (test code = 2220) 34 MG/DL CALC LDL CHOL (test code = 2237) 94 MG/DL RISK RATIO LDL/HDL (test cod e = 2238) 2.76 RATIO Feliciano BhattiHEMOGLOBIN [id number] 00:00:00* Test Item Value Reference Range Interpretation Comme nts HEMOGLOBIN A1c (test code = 23527) 6.6 % Feliciano DuncanH, THIRD [id number] 00:00:00* Test Item Value Reference Range Interpretation Comme nts TSH, THIRD GENERATION (test code = 2821) 5.760 UIU/ML Feliciano Bruce (ANTI-NUCLEAR AB) WITH REFLEX [id number] 00:00:00* Test Item Value Reference Range Interpretation Comme nts ANTI-NUCLEAR ANTIBODIES (kalia t code = 3506) NEGATIVE LISA PATTERN (REPORTED TITER) (test code = 54147) SEE BELOW HOMOGENEOUS (test code = 32925) NEGATIVE TITER SPECKLED (test code = 293766) NEGATIVE TITER DENSE FINE SPECKLED (test co de = 40294) NEGATIVE TITER CENTROMERE (test code = 604309) NEGATIVE TITER COARSE SPECKLED (test code = 867558) NEGATIVE TITER DISCRETE NUCLEAR DOTS (test code = 533769) NEGATIVE TITER NUCLEOLAR (test code = 645755) NEGATIVE TITER NUCLEAR MEMBRANE (test code = 911978) NEGATIVE TITER CYTO. RETICULAR (NOHEMI) (test code = 327747) NEGATIVE COMMENTS (test code = 988637) NONE METHOD (test code = 29533) (NOTE) Feliciano BhattiCOMPREHENSIVE METABOLIC [id number] 00:00:00* Test Item Value Reference Range Interpretation Comme nts GLUCOSE (test code = 2217) 113 MG/DL BUN (test code = 2208) 15 MG/DL CREATININE (test code = 2214) 0.76 MG/DL eGFR (2020 CKD-EPI) (test co de = 26346) 92 ML/MIN/1.73 CALC BUN/CREAT (test code = 2235) 20 RATIO SODIUM (test code = 2231) 140 MEQ/L POTASSIUM (test code = 2228) 4.4 MEQ/L CHLORIDE (test code = 2215) 104 MEQ/L CARBON DIOXIDE (test code = 2206) 26 MEQ/L CALCIUM (test code = 2209) 9.0 MG/DL PROTEIN, TOTAL (test code = 2229) 7.1 G/DL ALBUMIN (test code = 2201) 4.3 G/DL CALC GLOBULIN (test code = 2240) 2.8 G/DL CALC A/G RATIO (test code = 2234) 1.5 RATIO BILIRUBIN, TOTAL (test code = 2207) 0.4 MG/DL ALKALINE PHOSPHATASE (test code = 2204) 111 U/L AST (test code = 2218) 29 U/L ALT (test code = 2219) 28 U/L Feliciano BhattiLIPID [id number] 00:00:00* Test Item Value Reference Range Interpretation Comme nts CHOLESTEROL (test code = 2210) 157 MG/DL TRIGLYCERIDES (test code = 2232) 194 MG/DL HDL CHOLESTEROL (test code = 2220) 34 MG/DL CALC LDL CHOL (test code = 2237) 94 MG/DL RISK RATIO LDL/HDL (test cod e = 2238) 2.76 RATIO Feliciano BhattiHEMOGLOBIN [id number] 00:00:00* Test Item Value Reference Range Interpretation Comme nts HEMOGLOBIN A1c (test code = 82712) 6.6 % Feliciano BhattiTSH, THIRD [id number] 00:00:00* Test Item Value Reference Range Interpretation Comme nts TSH, THIRD GENERATION (test code = 2821) 5.760 UIU/ML Feliciano Bruce (ANTI-NUCLEAR AB) WITH REFLEX [id number] 00:00:00* Test Item Value Reference Range Interpretation Comme nts ANTI-NUCLEAR ANTIBODIES (kalia t code = 3506) NEGATIVE LISA PATTERN (REPORTED TITER) (test code = 81069) SEE BELOW HOMOGENEOUS (test code = 95272) NEGATIVE TITER SPECKLED (test code = 516505) NEGATIVE TITER DENSE FINE SPECKLED (test co de = 70338) NEGATIVE TITER CENTROMERE (test code = 448099) NEGATIVE TITER COARSE SPECKLED (test code = 040794) NEGATIVE TITER DISCRETE NUCLEAR DOTS (test code = 587024) NEGATIVE TITER NUCLEOLAR (test code = 500085) NEGATIVE TITER NUCLEAR MEMBRANE (test code = 468479) NEGATIVE TITER CYTO. RETICULAR (NOHEMI) (test code = 355440) NEGATIVE COMMENTS (test code = 455126) NONE METHOD (test code = 85758) (NOTE) Feliciano BhattiCOMPREHENSIVE METABOLIC [id number] 00:00:00* Test Item Value Reference Range Interpretation Comme nts GLUCOSE (test code = 2217) 113 MG/DL BUN (test code = 2208) 15 MG/DL CREATININE (test code = 2214) 0.76 MG/DL eGFR (2020 CKD-EPI) (test co de = 72102) 92 ML/MIN/1.73 CALC BUN/CREAT (test code = 2235) 20 RATIO SODIUM (test code = 2231) 140 MEQ/L POTASSIUM (test code = 2228) 4.4 MEQ/L CHLORIDE (test code = 2215) 104 MEQ/L CARBON DIOXIDE (test code = 2206) 26 MEQ/L CALCIUM (test code = 2209) 9.0 MG/DL PROTEIN, TOTAL (test code = 2229) 7.1 G/DL ALBUMIN (test code = 2201) 4.3 G/DL CALC GLOBULIN (test code = 2240) 2.8 G/DL CALC A/G RATIO (test code = 2234) 1.5 RATIO BILIRUBIN, TOTAL (test code = 2207) 0.4 MG/DL ALKALINE PHOSPHATASE (test code = 2204) 111 U/L AST (test code = 2218) 29 U/L ALT (test code = 2219) 28 U/L Feliciano BhattiLIPID [id number] 00:00:00* Test Item Value Reference Range Interpretation Comme nts CHOLESTEROL (test code = 2210) 157 MG/DL TRIGLYCERIDES (test code = 2232) 194 MG/DL HDL CHOLESTEROL (test code = 2220) 34 MG/DL CALC LDL CHOL (test code = 2237) 94 MG/DL RISK RATIO LDL/HDL (test cod e = 2238) 2.76 RATIO Feliciano BhattiHEMOGLOBIN [id number] 00:00:00* Test Item Value Reference Range Interpretation Comme nts HEMOGLOBIN A1c (test code = 99674) 6.6 % Feliciano BhattiMARKH, THIRD [id number] 00:00:00* Test Item Value Reference Range Interpretation Comme nts TSH, THIRD GENERATION (test code = 2821) 5.760 UIU/ML Feliciano BhattiLISA (ANTI-NUCLEAR AB) WITH REFLEX [id number] 00:00:00* Test Item Value Reference Range Interpretation Comme nts ANTI-NUCLEAR ANTIBODIES (kalia t code = 3506) NEGATIVE LISA PATTERN (REPORTED TITER) (test code = 66927) SEE BELOW HOMOGENEOUS (test code = 23167) NEGATIVE TITER SPECKLED (test code = 943635) NEGATIVE TITER DENSE FINE SPECKLED (test co de = 21865) NEGATIVE TITER CENTROMERE (test code = 969116) NEGATIVE TITER COARSE SPECKLED (test code = 905358) NEGATIVE TITER DISCRETE NUCLEAR DOTS (test code = 105759) NEGATIVE TITER NUCLEOLAR (test code = 141546) NEGATIVE TITER NUCLEAR MEMBRANE (test code = 950837) NEGATIVE TITER CYTO. RETICULAR (NOHEMI) (test code = 340858) NEGATIVE COMMENTS (test code = 730977) NONE METHOD (test code = 11271) (NOTE) Feliciano Richards [place] CityFSH + LH [id number] 04:04:37* Test Item Value Reference Range Interpretation [...] 1.0-11.4 IU/L POSTMENOPAUSAL 7.7-58.5 IU/L TSH, THIRD [id number] 04:04:37* Test Item Value Reference Range Interpretation Comme nts TSH, THIRD GENERATION (test code = 2821) 2.270 UIU/ML 0.400-4.100 [id number] 04:04:37* Test Item Value Reference Range Interpretation [...] ESTRADIOL IN POSTMENOPAUSAL FEMALES, CONSIDER ULTRASENSITIVE ESTRADIOL ([facility] ORDER CODE 5678). METHODOLOGY IS [facility] ELECTROCHEMILUMINESCENT IMMUNOASSAY WITH A LIMIT OF DETECTION OF 17 PG/ML. UNLESS OTHERWISE INDICATED, ALL TESTING PERFORMED [facility] [employer] [address] [place] [address] BUILDER OPERATOR: ISSA GOLD M.D. CLIA NUMBER [id number] [facility] [place]. [id number] FSH + LH [id number] 00:00:00* Test Item Value Reference Range Interpretation Comme nts FOLLICLE STIM HORMONE (test code = 2700) 27.9 IU/L LUTEINIZING HORMONE (test co de = 2776) 21.5 IU/L Feliciano DuncanH, THIRD [id number] 00:00:00* Test Item Value Reference Range Interpretation Comme nts TSH, THIRD GENERATION (test code = 2821) 2.270 UIU/ML Feliciano [id number] 00:00:00* Test Item Value Reference Range Interpretation Comme nts ESTRADIOL (test code = 2505) 19.2 PG/ML Feliciano BhattiFSH + LH [id number] 00:00:00* Test Item Value Reference Range Interpretation Comme nts FOLLICLE STIM HORMONE (test code = 2700) 27.9 IU/L LUTEINIZING HORMONE (test co de = 2776) 21.5 IU/L Feliciano BhattiTSH, THIRD [id number] 00:00:00* Test Item Value Reference Range Interpretation Comme nts TSH, THIRD GENERATION (test code = 2821) 2.270 UIU/ML Feliciano Richards [id number] 00:00:00* Test Item Value Reference Range Interpretation Comme nts ESTRADIOL (test code = 2505) 19.2 PG/ML Feliciano BhattiFSH + LH [id number] 00:00:00* Test Item Value Reference Range Interpretation Comme nts FOLLICLE STIM HORMONE (test code = 2700) 27.9 IU/L LUTEINIZING HORMONE (test co de = 2776) 21.5 IU/L Feliciano Rosa, THIRD [id number] 00:00:00* Test Item Value Reference Range Interpretation Comme nts TSH, THIRD GENERATION (test code = 2821) 2.270 UIU/ML Feliciano [id number] 00:00:00* Test Item Value Reference Range Interpretation Comme nts ESTRADIOL (test code = 2505) 19.2 PG/ML Feliciano BhattiFSH + LH [id number] 00:00:00* Test Item Value Reference Range Interpretation Comme nts FOLLICLE STIM HORMONE (test code = 2700) 27.9 IU/L LUTEINIZING HORMONE (test co de = 2776) 21.5 IU/L Feliciano Rosa, THIRD [id number] 00:00:00* Test Item Value Reference Range Interpretation Comme nts TSH, THIRD GENERATION (test code = 2821) 2.270 UIU/ML Feliciano [id number] 00:00:00* Test Item Value Reference Range Interpretation Comme nts ESTRADIOL (test code = 2505) 19.2 PG/ML Feliciano BhattiCT/NG, NAAT, [id number] 21:39:15* Test Item Value Reference Range Interpretation Comme nts GONORRHEA, NAAT (test code = 71050) NEGATIVE NEGATIVE Note: Testing is performed with [facility] 6800/8800 systems using real-time polymerase chain reaction (PCR) method. CHLAMYDIA, NAAT (test code = 81520) NEGATIVE NEGATIVE Note: Testing is performed with [facility] 6800/8800 systems using real-time polymerase chain reaction (PCR) method. UNLESS OTHERWISE INDICATED, ALL TESTING PERFORMED [facility]CL[facility] [employer] [employer] [address] [place] [address] BUILDER OPERATOR: ISSA GOLD M.D. CLIA NUMBER [id number] [facility] [place]. [id number] HEPATITIS PANEL, [id number] 05:03:26* Test Item Value Reference Range Interpretation Comme nts HEPATITIS A IgM (test code = 58116) NON-REACTIVE NON-REACTIVE HEPATITIS B CORE IgM (test code = 4644) NON-REACTIVE NON-REACTIVE HEPATITIS B SURF AG (test code = 2739) NON-REACTIVE NON-REACTIVE HEPATITIS C ANTIBODY (test code = 4675) NON-REACTIVE NON-REACTIVE INTERPRETATION HEPATITIS A: (test code = 2552) (NOTE) Hepatitis A serology shows no evidence of acute hepatitis A. INTERPRETATION HEPATITIS B: (test code = 04870) (NOTE) Hepatitis B serology shows no evidence of acute hepatitis B andno indication of exposure to hepatitis B virus in the previous dung eight months. INTERPRETATION HEPATITIS C: (test code = 17385) (NOTE) Hepatitis C serology shows no evidence of exposure to hepatitisC virus at this time. It can take up to 12 months after exposure tothe hepatitis C virus for antibodies to become detectable in the blood in certain patients. HIV 1/2 4TH GEN, RFLX [id number] 05:03:26* Test Item Value Reference Range Interpretation Comme nts HIV 1/2 4TH GEN, RFLX CONF ( test code = 3514) NON-REACTIVE NON-REACTIVE [id number] 03:11:00* Test Item Value Reference Range Interpretation Comme nts RPR RESULT (test code = 3501) NON-REACTIVE NON-REACTIVE RPR TITER (test code = 3500) NOT INDIC. TITER NOT INDIC. HIV 1/2 4TH GEN, RFLX [id number] 00:00:00* Test Item Value Reference Range Interpretation Comme nts HIV 1/2 4TH GEN, RFLX CONF ( test code = 3514) NON-REACTIVE Feliciano Richards [id number] 00:00:00* Test Item Value Reference Range Interpretation Comme nts RPR RESULT (test code = 3501) NON-REACTIVE RPR TITER (test code = 3500) NOT INDIC. TITER Feliciano Richards AustinCT/NG, TMA, [id number] 00:00:00* Test Item Value Reference Range Interpretation Comme nts GONORRHEA, NAAT (test code = 76090) NEGATIVE CHLAMYDIA, NAAT (test code = 50363) NEGATIVE Feliciano Richards AustinACUTE HEPATITIS [id number] 00:00:00* Test Item Value Reference Range Interpretation Comme nts HEPATITIS A IgM (test code = 86857) NON-REACTIVE HEPATITIS B CORE IgM (test c ode = 4644) NON-REACTIVE HEPATITIS B SURF AG (test co de = 2739) NON-REACTIVE HEPATITIS C ANTIBODY (test c ode = 4675) NON-REACTIVE INTERPRETATION HEPATITIS A: (test code = 2552) (NOTE) INTERPRETATION HEPATITIS B: (test code = 18042) (NOTE) INTERPRETATION HEPATITIS C: (test code = 05482) (NOTE) Feliciano BhattiHIV 1/2 4TH GEN, RFLX [id number] 00:00:00* Test Item Value Reference Range Interpretation Comme nts HIV 1/2 4TH GEN, RFLX CONF ( test code = 3514) NON-REACTIVE Feliciano Richards [id number] 00:00:00* Test Item Value Reference Range Interpretation Comme nts RPR RESULT (test code = 3501) NON-REACTIVE RPR TITER (test code = 3500) NOT INDIC. TITER Feliciano Richards AustinCT/NG, TMA, [id number] 00:00:00* Test Item Value Reference Range Interpretation Comme nts GONORRHEA, NAAT (test code = 11954) NEGATIVE CHLAMYDIA, NAAT (test code = 73606) NEGATIVE Feliciano BhattiACUTE HEPATITIS [id number] 00:00:00* Test Item Value Reference Range Interpretation Comme nts HEPATITIS A IgM (test code = 04256) NON-REACTIVE HEPATITIS B CORE IgM (test c ode = 4644) NON-REACTIVE HEPATITIS B SURF AG (test co de = 2739) NON-REACTIVE HEPATITIS C ANTIBODY (test c ode = 4675) NON-REACTIVE INTERPRETATION HEPATITIS A: (test code = 2552) (NOTE) INTERPRETATION HEPATITIS B: (test code = 77590) (NOTE) INTERPRETATION HEPATITIS C: (test code = 71558) (NOTE) Feliciano Richards AustinHIV 1/2 4TH GEN, RFLX [id number] 00:00:00* Test Item Value Reference Range Interpretation Comme nts HIV 1/2 4TH GEN, RFLX CONF ( test code = 3514) NON-REACTIVE Feliciano Richards [id number] 00:00:00* Test Item Value Reference Range Interpretation Comme nts RPR RESULT (test code = 3501) NON-REACTIVE RPR TITER (test code = 3500) NOT INDIC. TITER Feliciano Richards AustinCT/NG, TMA, [id number] 00:00:00* Test Item Value Reference Range Interpretation Comme nts GONORRHEA, NAAT (test code = 54272) NEGATIVE CHLAMYDIA, NAAT (test code = 81733) NEGATIVE Feliciano BhattiACUTE HEPATITIS [id number] 00:00:00* Test Item Value Reference Range Interpretation Comme nts HEPATITIS A IgM (test code = 30722) NON-REACTIVE HEPATITIS B CORE IgM (test c ode = 4644) NON-REACTIVE HEPATITIS B SURF AG (test co de = 2739) NON-REACTIVE HEPATITIS C ANTIBODY (test c ode = 4675) NON-REACTIVE INTERPRETATION HEPATITIS A: (test code = 2552) (NOTE) INTERPRETATION HEPATITIS B: (test code = 39578) (NOTE) INTERPRETATION HEPATITIS C: (test code = 13026) (NOTE) Feliciano BhattiHIV 1/2 4TH GEN, RFLX [id number] 00:00:00* Test Item Value Reference Range Interpretation Comme nts HIV 1/2 4TH GEN, RFLX CONF ( test code = 3514) NON-REACTIVE Feliciano [id number] 00:00:00* Test Item Value Reference Range Interpretation Comme nts RPR RESULT (test code = 3501) NON-REACTIVE RPR TITER (test code = 3500) NOT INDIC. TITER Feliciano BhattiCT/NG, TMA, [id number] 00:00:00* Test Item Value Reference Range Interpretation Comme nts GONORRHEA, NAAT (test code = 57282) NEGATIVE CHLAMYDIA, NAAT (test code = 27038) NEGATIVE Feliciano BhattiACUTE HEPATITIS [id number] 00:00:00* Test Item Value Reference Range Interpretation Comme nts HEPATITIS A IgM (test code = 94229) NON-REACTIVE HEPATITIS B CORE IgM (test c ode = 4644) NON-REACTIVE HEPATITIS B SURF AG (test co de = 2739) NON-REACTIVE HEPATITIS C ANTIBODY (test c ode = 4675) NON-REACTIVE INTERPRETATION HEPATITIS A: (test code = 2552) (NOTE) INTERPRETATION HEPATITIS B: (test code = 98323) (NOTE) INTERPRETATION HEPATITIS C: (test code = 12330) (NOTE) Feliciano Richards DavySCR MAMM BILATERAL EARL CAD [id number] 08:17:39- SCR MAMM BILATERAL EARL CAD DIGITALBILATERAL DIGITAL SCREENING MAMMOGRAM 3D/2D WITH CAD: 02/10/2020CLINICAL: Asymptomatic. Digital breast tomosynthesis was performed in addition to routine CC and MLO views. Current mammographic images were evaluated by either a [employer] M-Vu or a [employer] ImageChecker CAD (computer aided detection system). No [...] annual screening mammography in one year. Emerson Lundberg/penrad:02/17/2020 08:17:39 [employer] Cream [employer]: Carlene Miguel MM, [facility] Mammographyletter sent: BIRADS 1-2 Normal Mammogram BI-RADS: 2 BenignLIPID [id number] 00:00:00* Test Item Value Reference Range Interpretation Comme nts CHOLESTEROL (test code = 2210) 167 MG/DL TRIGLYCERIDES (test code = 2232) 147 MG/DL HDL CHOLESTEROL (test code = 2220) 36 MG/DL CALC LDL CHOL (test code = 2237) 105 MG/DL RISK RATIO LDL/HDL (test cod e = 2238) 2.92 RATIO Feliciano BhattiHEMOGLOBIN [id number] 00:00:00* Test Item Value Reference Range Interpretation Comme nts HEMOGLOBIN A1c (test code = 14286) 6.2 % Feliciano Richards [id number] 00:00:00* Test Item Value Reference Range Interpretation Comme nts TSH, THIRD GENERATION (test code = 2821) 4.630 UIU/ML Feliciano BhattiCOMPREHENSIVE METABOLIC [id number] 00:00:00* Test Item Value Reference Range Interpretation Comme nts GLUCOSE (test code = 2217) 124 MG/DL BUN (test code = 2208) 13 MG/DL CREATININE (test code = 2214) 0.81 MG/DL eGFR AMER. (test cod e = 56091) 96 ML/MIN/1.73 eGFR NON- AMER. (test code = 75186) 83 ML/MIN/1.73 CALC BUN/CREAT (test code = 2235) 16 RATIO SODIUM (test code = 2231) 142 MEQ/L POTASSIUM (test code = 2228) 4.6 MEQ/L CHLORIDE (test code = 2215) 104 MEQ/L CARBON DIOXIDE (test code = 2206) 26 MEQ/L CALCIUM (test code = 2209) 8.9 MG/DL PROTEIN, TOTAL (test code = 2229) 7.1 G/DL ALBUMIN (test code = 2201) 4.1 G/DL CALC GLOBULIN (test code = 2240) 3.0 G/DL CALC A/G RATIO (test code = 2234) 1.4 RATIO BILIRUBIN, TOTAL (test code = 220) 0.4 MG/DL ALKALINE PHOSPHATASE (test code = 2204) 98 U/L AST (test code = 2218) 17 U/L ALT (test code = 2219) 17 U/L Feliciano BhattiLIPID [id number] 00:00:00* Test Item Value Reference Range Interpretation Comme nts CHOLESTEROL (test code = 2210) 167 MG/DL TRIGLYCERIDES (test code = 2232) 147 MG/DL HDL CHOLESTEROL (test code = 2220) 36 MG/DL CALC LDL CHOL (test code = 2237) 105 MG/DL RISK RATIO LDL/HDL (test cod e = 2238) 2.92 RATIO Feliciano BhattiHEMOGLOBIN [id number] 00:00:00* Test Item Value Reference Range Interpretation Comme nts HEMOGLOBIN A1c (test code = 95884) 6.2 % Feliciano [id number] 00:00:00* Test Item Value Reference Range Interpretation Comme nts TSH, THIRD GENERATION (test code = 2821) 4.630 UIU/ML Felciiano BhattiCOMPREHENSIVE METABOLIC [id number] 00:00:00* Test Item Value Reference Range Interpretation Comme nts GLUCOSE (test code = 2217) 124 MG/DL BUN (test code = 220) 13 MG/DL CREATININE (test code = 2214) 0.81 MG/DL eGFR AMER. (test cod e = ) 96 ML/MIN/1.73 eGFR NON- AMER. (test code = 49614) 83 ML/MIN/1.73 CALC BUN/CREAT (test code = 2235) 16 RATIO SODIUM (test code = 2231) 142 MEQ/L POTASSIUM (test code = 2228) 4.6 MEQ/L CHLORIDE (test code = 2215) 104 MEQ/L CARBON DIOXIDE (test code = 2206) 26 MEQ/L CALCIUM (test code = 2209) 8.9 MG/DL PROTEIN, TOTAL (test code = 2229) 7.1 G/DL ALBUMIN (test code = 2201) 4.1 G/DL CALC GLOBULIN (test code = 2240) 3.0 G/DL CALC A/G RATIO (test code = 2234) 1.4 RATIO BILIRUBIN, TOTAL (test code = 2207) 0.4 MG/DL ALKALINE PHOSPHATASE (test code = 220) 98 U/L AST (test code = 221) 17 U/L ALT (test code = 2219) 17 U/L Feliciano BhattiLIPID [id number] 00:00:00* Test Item Value Reference Range Interpretation Comme nts CHOLESTEROL (test code = 2210) 167 MG/DL TRIGLYCERIDES (test code = 2232) 147 MG/DL HDL CHOLESTEROL (test code = 2220) 36 MG/DL CALC LDL CHOL (test code = 7) 105 MG/DL RISK RATIO LDL/HDL (test cod e = 2238) 2.92 RATIO Feliciano BhattiHEMOGLOBIN [id number] 00:00:00* Test Item Value Reference Range Interpretation Comme nts HEMOGLOBIN A1c (test code = 61087) 6.2 % Feliciano [id number] 00:00:00* Test Item Value Reference Range Interpretation Comme nts TSH, THIRD GENERATION (test code = 2821) 4.630 UIU/ML Feliciano BhattiCOMPREHENSIVE METABOLIC [id number] 00:00:00* Test Item Value Reference Range Interpretation Comme nts GLUCOSE (test code = 2217) 124 MG/DL BUN (test code = 2208) 13 MG/DL CREATININE (test code = 2214) 0.81 MG/DL eGFR AMER. (test cod e = 82990) 96 ML/MIN/1.73 eGFR NON- AMER. (test code = 64720) 83 ML/MIN/1.73 CALC BUN/CREAT (test code = 2235) 16 RATIO SODIUM (test code = 223) 142 MEQ/L POTASSIUM (test code = 2228) 4.6 MEQ/L CHLORIDE (test code = 2215) 104 MEQ/L CARBON DIOXIDE (test code = 2206) 26 MEQ/L CALCIUM (test code = 2209) 8.9 MG/DL PROTEIN, TOTAL (test code = 2229) 7.1 G/DL ALBUMIN (test code = 2201) 4.1 G/DL CALC GLOBULIN (test code = 2240) 3.0 G/DL CALC A/G RATIO (test code = 2234) 1.4 RATIO BILIRUBIN, TOTAL (test code = 2207) 0.4 MG/DL ALKALINE PHOSPHATASE (test code = 220) 98 U/L AST (test code = 221) 17 U/L ALT (test code = 221) 17 U/L Feliciano BhattiLIPID [id number] 00:00:00* Test Item Value Reference Range Interpretation Comme nts CHOLESTEROL (test code = 2210) 167 MG/DL TRIGLYCERIDES (test code = 2232) 147 MG/DL HDL CHOLESTEROL (test code = 0) 36 MG/DL CALC LDL CHOL (test code = 7) 105 MG/DL RISK RATIO LDL/HDL (test cod e = 2238) 2.92 RATIO Feliciano BhattiHEMOGLOBIN [id number] 00:00:00* Test Item Value Reference Range Interpretation Comme nts HEMOGLOBIN A1c (test code = 72445) 6.2 % Feliciano [id number] 00:00:00* Test Item Value Reference Range Interpretation Comme nts TSH, THIRD GENERATION (test code = 2821) 4.630 UIU/ML Feliciano BhattiCOMPREHENSIVE METABOLIC [id number] 00:00:00* Test Item Value Reference Range Interpretation Comme nts GLUCOSE (test code = 2217) 124 MG/DL BUN (test code = 8) 13 MG/DL CREATININE (test code = 2214) 0.81 MG/DL eGFR AMER. (test cod e = 78011) 96 ML/MIN/1.73 eGFR NON- AMER. (test code = 67820) 83 ML/MIN/1.73 CALC BUN/CREAT (test code = 2235) 16 RATIO SODIUM (test code = 2231) 142 MEQ/L POTASSIUM (test code = 2228) 4.6 MEQ/L CHLORIDE (test code = 2215) 104 MEQ/L CARBON DIOXIDE (test code = 2206) 26 MEQ/L CALCIUM (test code = 2209) 8.9 MG/DL PROTEIN, TOTAL (test code = 2229) 7.1 G/DL ALBUMIN (test code = 2201) 4.1 G/DL CALC GLOBULIN (test code = 2240) 3.0 G/DL CALC A/G RATIO (test code = 2234) 1.4 RATIO BILIRUBIN, TOTAL (test code = 2207) 0.4 MG/DL ALKALINE PHOSPHATASE (test code = 2204) 98 U/L AST (test code = 2218) 17 U/L ALT (test code = 2219) 17 U/L Feliciano BhattiACUTE HEPATITIS [id number] 00:00:00* Test Item Value Reference Range Interpretation Comme nts HEPATITIS A IgM (test code = 17519) NON-REACTIVE HEPATITIS B CORE IgM (test c ode = 4644) NON-REACTIVE HEPATITIS B SURF AG (test co de = 2739) NON-REACTIVE HEPATITIS C ANTIBODY (test c ode = 4675) NON-REACTIVE INTERPRETATION HEPATITIS A: (test code = 2552) (NOTE) INTERPRETATION HEPATITIS B: (test code = 82454) (NOTE) INTERPRETATION HEPATITIS C: (test code = 05083) (NOTE) Feliciano [id number] 00:00:00* Test Item Value Reference Range Interpretation Comme nts RPR RESULT (test code = 3501) NON-REACTIVE RPR TITER (test code = 3500) NOT INDIC. TITER Feliciano BhattiVAGINAL PATHOGENS DNA [id number] 00:00:00* Test Item Value Reference Range Interpretation Comme nts MELVA SPECIES (test code = 23797) NEGATIVE G. VAGINALIS (test code = 66364) POSITIVE T. VAGINALIS (test code = 22463) NEGATIVE Feliciano BhattiHIV AB/AG COMBO RFLX [id number] 00:00:00* Test Item Value Reference Range Interpretation Comme nts HIV 1/2 4TH GEN, RFLX CONF ( test code = 3514) NON-REACTIVE Feliciano BhattiACUTE HEPATITIS [id number] 00:00:00* Test Item Value Reference Range Interpretation Comme nts HEPATITIS A IgM (test code = 26933) NON-REACTIVE HEPATITIS B CORE IgM (test c ode = 4644) NON-REACTIVE HEPATITIS B SURF AG (test co de = 2739) NON-REACTIVE HEPATITIS C ANTIBODY (test c ode = 4675) NON-REACTIVE INTERPRETATION HEPATITIS A: (test code = 2552) (NOTE) INTERPRETATION HEPATITIS B: (test code = 23969) (NOTE) INTERPRETATION HEPATITIS C: (test code = 57860) (NOTE) Feliciano [id number] 00:00:00* Test Item Value Reference Range Interpretation Comme nts RPR RESULT (test code = 3501) NON-REACTIVE RPR TITER (test code = 3500) NOT INDIC. TITER Feliciano BhattiVAGINAL PATHOGENS DNA [id number] 00:00:00* Test Item Value Reference Range Interpretation Comme nts MELVA SPECIES (test code = 03278) NEGATIVE G. VAGINALIS (test code = 67645) POSITIVE T. VAGINALIS (test code = 86716) NEGATIVE Feliciano BhattiHIV AB/AG COMBO RFLX [id number] 00:00:00* Test Item Value Reference Range Interpretation Comme nts HIV 1/2 4TH GEN, RFLX CONF ( test code = 3514) NON-REACTIVE Feliciano BhattiACUTE HEPATITIS [id number] 00:00:00* Test Item Value Reference Range Interpretation Comme nts HEPATITIS A IgM (test code = 17472) NON-REACTIVE HEPATITIS B CORE IgM (test c ode = 4644) NON-REACTIVE HEPATITIS B SURF AG (test co de = 2739) NON-REACTIVE HEPATITIS C ANTIBODY (test c ode = 4675) NON-REACTIVE INTERPRETATION HEPATITIS A: (test code = 2552) (NOTE) INTERPRETATION HEPATITIS B: (test code = 56153) (NOTE) INTERPRETATION HEPATITIS C: (test code = 04876) (NOTE) Feliciano [id number] 00:00:00* Test Item Value Reference Range Interpretation Comme nts RPR RESULT (test code = 3501) NON-REACTIVE RPR TITER (test code = 3500) NOT INDIC. TITER Feliciano BhattiVAGINAL PATHOGENS DNA [id number] 00:00:00* Test Item Value Reference Range Interpretation Comme nts MELVA SPECIES (test code = ) NEGATIVE G. VAGINALIS (test code = 25162) POSITIVE T. VAGINALIS (test code = [address]) NEGATIVE Feliciano BhattiHIV AB/AG COMBO RFLX [id number] 00:00:00* Test Item Value Reference Range Interpretation Comme nts HIV 1/2 4TH GEN, RFLX CONF ( test code = 3514) NON-REACTIVE Feliciano BhattiACUTE HEPATITIS [id number] 00:00:00* Test Item Value Reference Range Interpretation Comme nts HEPATITIS A IgM (test code = 21947) NON-REACTIVE HEPATITIS B CORE IgM (test c ode = 4644) NON-REACTIVE HEPATITIS B SURF AG (test co de = 2739) NON-REACTIVE HEPATITIS C ANTIBODY (test c ode = 4675) NON-REACTIVE INTERPRETATION HEPATITIS A: (test code = 2552) (NOTE) INTERPRETATION HEPATITIS B: (test code = 71851) (NOTE) INTERPRETATION HEPATITIS C: (test code = 28289) (NOTE) Feliciano Richards [id number] 00:00:00* Test Item Value Reference Range Interpretation Comme nts RPR RESULT (test code = 3501) NON-REACTIVE RPR TITER (test code = 3500) NOT INDIC. TITER Feliciano BhattiVAGINAL PATHOGENS DNA [id number] 00:00:00* Test Item Value Reference Range Interpretation Comme nts MELVA SPECIES (test code = 95215) NEGATIVE G. VAGINALIS (test code = 39115) POSITIVE T. VAGINALIS (test code = 17999) NEGATIVE Feliciano BhattiHIV AB/AG COMBO RFLX [id number] 00:00:00* Test Item Value Reference Range Interpretation Comme nts HIV 1/2 4TH GEN, RFLX CONF ( test code = 3514) NON-REACTIVE Feliciano BhattiHEMOGLOBIN [id number] 00:00:00* Test Item Value Reference Range Interpretation Comme jorge alberto HEMOGLOBIN A1c (test code = 59218) 5.9 % Feliciano BhattiLIPID [id number] 00:00:00* Test Item Value Reference Range Interpretation Comme nts CHOLESTEROL (test code = 2210) 168 MG/DL TRIGLYCERIDES (test code = 2232) 107 MG/DL HDL CHOLESTEROL (test code = 2220) 39 MG/DL CALC LDL CHOL (test code = 2237) 108 MG/DL RISK RATIO LDL/HDL (test cod e = 2238) 2.76 RATIO Feliciano [id number] 00:00:00* Test Item Value Reference Range Interpretation Comme nts TSH, THIRD GENERATION (test code = 2821) 5.090 UIU/ML Feliciano BhattiCOMPREHENSIVE METABOLIC [id number] 00:00:00* Test Item Value Reference Range Interpretation Comme nts GLUCOSE (test code = 2217) 105 MG/DL BUN (test code = 2208) 7 MG/DL CREATININE (test code = 2214) 0.75 MG/DL eGFR AMER. (test cod e = 39288) 106 ML/MIN/1.73 eGFR NON- AMER. (test code = 18459) 92 ML/MIN/1.73 CALC BUN/CREAT (test code = 2235) 9 RATIO SODIUM (test code = 2231) 143 MEQ/L POTASSIUM (test code = 2228) 4.5 MEQ/L CHLORIDE (test code = 2215) 104 MEQ/L CARBON DIOXIDE (test code = 2206) 26 MEQ/L CALCIUM (test code = 2209) 9.1 MG/DL PROTEIN, TOTAL (test code = 2229) 7.4 G/DL ALBUMIN (test code = 2201) 4.1 G/DL CALC GLOBULIN (test code = 2240) 3.3 G/DL CALC A/G RATIO (test code = 2234) 1.2 RATIO BILIRUBIN, TOTAL (test code = 2207) 0.4 MG/DL ALKALINE PHOSPHATASE (test code = 2204) 109 U/L AST (test code = 2218) 16 U/L ALT (test code = 2219) 16 U/L Feliciano BhattiHEMOGLOBIN [id number] 00:00:00* Test Item Value Reference Range Interpretation Comme jorge alberto HEMOGLOBIN A1c (test code = 39281) 5.9 % Feliciano BhattiLIPID [id number] 00:00:00* Test Item Value Reference Range Interpretation Comme nts CHOLESTEROL (test code = 2210) 168 MG/DL TRIGLYCERIDES (test code = 2232) 107 MG/DL HDL CHOLESTEROL (test code = 2220) 39 MG/DL CALC LDL CHOL (test code = 2237) 108 MG/DL RISK RATIO LDL/HDL (test cod e = 2238) 2.76 RATIO Feliciano [id number] 00:00:00* Test Item Value Reference Range Interpretation Comme nts TSH, THIRD GENERATION (test code = 2821) 5.090 UIU/ML Feliciano BhattiCOMPREHENSIVE METABOLIC [id number] 00:00:00* Test Item Value Reference Range Interpretation Comme nts GLUCOSE (test code = 2217) 105 MG/DL BUN (test code = 2208) 7 MG/DL CREATININE (test code = 2214) 0.75 MG/DL eGFR AMER. (test cod e = 96565) 106 ML/MIN/1.73 eGFR NON- AMER. (test code = 01879) 92 ML/MIN/1.73 CALC BUN/CREAT (test code = 2235) 9 RATIO SODIUM (test code = 2231) 143 MEQ/L POTASSIUM (test code = 2228) 4.5 MEQ/L CHLORIDE (test code = 2215) 104 MEQ/L CARBON DIOXIDE (test code = 2206) 26 MEQ/L CALCIUM (test code = 2209) 9.1 MG/DL PROTEIN, TOTAL (test code = 2229) 7.4 G/DL ALBUMIN (test code = 2201) 4.1 G/DL CALC GLOBULIN (test code = 2240) 3.3 G/DL CALC A/G RATIO (test code = 2234) 1.2 RATIO BILIRUBIN, TOTAL (test code = 2207) 0.4 MG/DL ALKALINE PHOSPHATASE (test code = 2204) 109 U/L AST (test code = 2218) 16 U/L ALT (test code = 2219) 16 U/L Feliciano BhattiHEMOGLOBIN [id number] 00:00:00* Test Item Value Reference Range Interpretation Comme jorge alberto HEMOGLOBIN A1c (test code = 47513) 5.9 % Feliciano BhattiLIPID [id number] 00:00:00* Test Item Value Reference Range Interpretation Comme nts CHOLESTEROL (test code = 2210) 168 MG/DL TRIGLYCERIDES (test code = 2232) 107 MG/DL HDL CHOLESTEROL (test code = 2220) 39 MG/DL CALC LDL CHOL (test code = 2237) 108 MG/DL RISK RATIO LDL/HDL (test cod e = 2238) 2.76 RATIO Feliciano [id number] 00:00:00* Test Item Value Reference Range Interpretation Comme nts TSH, THIRD GENERATION (test code = 2821) 5.090 UIU/ML Feliciano BhattiCOMPREHENSIVE METABOLIC [id number] 00:00:00* Test Item Value Reference Range Interpretation Comme nts GLUCOSE (test code = 2217) 105 MG/DL BUN (test code = 2208) 7 MG/DL CREATININE (test code = 2214) 0.75 MG/DL eGFR AMER. (test cod e = 90017) 106 ML/MIN/1.73 eGFR NON- AMER. (test code = 93892) 92 ML/MIN/1.73 CALC BUN/CREAT (test code = 2235) 9 RATIO SODIUM (test code = 2231) 143 MEQ/L POTASSIUM (test code = 2228) 4.5 MEQ/L CHLORIDE (test code = 2215) 104 MEQ/L CARBON DIOXIDE (test code = 2206) 26 MEQ/L CALCIUM (test code = 2209) 9.1 MG/DL PROTEIN, TOTAL (test code = 2229) 7.4 G/DL ALBUMIN (test code = 2201) 4.1 G/DL CALC GLOBULIN (test code = 2240) 3.3 G/DL CALC A/G RATIO (test code = 2234) 1.2 RATIO BILIRUBIN, TOTAL (test code = 2207) 0.4 MG/DL ALKALINE PHOSPHATASE (test code = 2204) 109 U/L AST (test code = 2218) 16 U/L ALT (test code = 2219) 16 U/L Feliciano BhattiHEMOGLOBIN [id number] 00:00:00* Test Item Value Reference Range Interpretation Comme jorge alberto HEMOGLOBIN A1c (test code = 96036) 5.9 % Feliciano BhattiLIPID [id number] 00:00:00* Test Item Value Reference Range Interpretation Comme nts CHOLESTEROL (test code = 2210) 168 MG/DL TRIGLYCERIDES (test code = 2232) 107 MG/DL HDL CHOLESTEROL (test code = 2220) 39 MG/DL CALC LDL CHOL (test code = 2237) 108 MG/DL RISK RATIO LDL/HDL (test cod e = 2238) 2.76 RATIO Feliciano [id number] 00:00:00* Test Item Value Reference Range Interpretation Comme nts TSH, THIRD GENERATION (test code = 2821) 5.090 UIU/ML Feliciano BhattiCOMPREHENSIVE METABOLIC [id number] 00:00:00* Test Item Value Reference Range Interpretation Comme nts GLUCOSE (test code = 2217) 105 MG/DL BUN (test code = 2208) 7 MG/DL CREATININE (test code = 2214) 0.75 MG/DL eGFR AMER. (test cod e = 58514) 106 ML/MIN/1.73 eGFR NON- AMER. (test code = 95587) 92 ML/MIN/1.73 CALC BUN/CREAT (test code = 2235) 9 RATIO SODIUM (test code = 2231) 143 MEQ/L POTASSIUM (test code = 2228) 4.5 MEQ/L CHLORIDE (test code = 2215) 104 MEQ/L CARBON DIOXIDE (test code = 2206) 26 MEQ/L CALCIUM (test code = 2209) 9.1 MG/DL PROTEIN, TOTAL (test code = 2229) 7.4 G/DL ALBUMIN (test code = 2201) 4.1 G/DL CALC GLOBULIN (test code = 2240) 3.3 G/DL CALC A/G RATIO (test code = 2234) 1.2 RATIO BILIRUBIN, TOTAL (test code = 2207) 0.4 MG/DL ALKALINE PHOSPHATASE (test code = 2204) 109 U/L AST (test code = 2218) 16 U/L ALT (test code = 2219) 16 U/L Feliciano [id number] 00:00:00* Test Item Value Reference Range Interpretation Comme nts TSH, THIRD GENERATION (test code = 2821) 3.980 UIU/ML Feliciano BhattiLIPID [id number] 00:00:00* Test Item Value Reference Range Interpretation Comme nts CHOLESTEROL (test code = 2210) 179 MG/DL TRIGLYCERIDES (test code = 2232) 146 MG/DL HDL CHOLESTEROL (test code = 2220) 41 MG/DL CALC LDL CHOL (test code = 2237) 109 MG/DL RISK RATIO LDL/HDL (test cod e = 2238) 2.65 RATIO Feliciano [id number] 00:00:00* Test Item Value Reference Range Interpretation Comme nts TSH, THIRD GENERATION (test code = 2821) 3.980 UIU/ML Feliciano BhattiLIPID [id number] 00:00:00* Test Item Value Reference Range Interpretation Comme nts CHOLESTEROL (test code = 2210) 179 MG/DL TRIGLYCERIDES (test code = 2232) 146 MG/DL HDL CHOLESTEROL (test code = 2220) 41 MG/DL CALC LDL CHOL (test code = 2237) 109 MG/DL RISK RATIO LDL/HDL (test cod e = 2238) 2.65 RATIO Feliciano [id number] 00:00:00* Test Item Value Reference Range Interpretation Comme nts TSH, THIRD GENERATION (test code = 2821) 3.980 UIU/ML Feliciano BhattiLIPID [id number] 00:00:00* Test Item Value Reference Range Interpretation Comme nts CHOLESTEROL (test code = 2210) 179 MG/DL TRIGLYCERIDES (test code = 2232) 146 MG/DL HDL CHOLESTEROL (test code = 2220) 41 MG/DL CALC LDL CHOL (test code = 2237) 109 MG/DL RISK RATIO LDL/HDL (test cod e = 2238) 2.65 RATIO Feliciano [id number] 00:00:00* Test Item Value Reference Range Interpretation Comme nts TSH, THIRD GENERATION (test code = 2821) 3.980 UIU/ML Feliciano BhattiLIPID [id number] 00:00:00* Test Item Value Reference Range Interpretation Comme nts CHOLESTEROL (test code = 2210) 179 MG/DL TRIGLYCERIDES (test code = 2232) 146 MG/DL HDL CHOLESTEROL (test code = 2220) 41 MG/DL CALC LDL CHOL (test code = 2237) 109 MG/DL RISK RATIO LDL/HDL (test cod e = 2238) 2.65 RATIO Feliciano Bhatti Notes Date/Time Note Provider Source 2024-07-18 10:27:16 Chief Complaint Patient presents with Physical [facility]ieP[facility]2024-08-07 00:00:00 Feliciano Paz [facility]24-06-13 00:00:00 [facility]
[2024-07-25 22:51] LABS: Absolute Basophils 0.1 K/uL (0-0.5); Absolute Eosinophils 0.1 K/uL (0-0.5); Absolute Lymphocytes (CBC) 2.8 K/uL (0.7-4.9); Absolute Monocytes 0.5 K/uL (0.1-1.3); Absolute Neutrophil 5.1 K/uL (1.8-8.0); Basophils % 0.6 % (0-1.3); Eosinophils % 1.5 % (0-4.4); Hematocrit 39.8 % (36.0-45.0); Hemoglobin 13.5 g/dL (12.0-15.0); Lymphocytes % 32.8 % (15.3-44.8); MCH 28.3 pg (27.0-35.0); MCV 83.4 fL (80-100); MPV 8.2 fL (7.6-11.3); Monocytes % 5.9 % (3.3-12.3); Neutrophils % 59.2 % (41.7-73.7); Nucleated Red Blood Cells % 0.1 % (0-0); Platelets 264 thou/uL (152-406); RBC Red Blood Cell Count 4.77 M/uL (3.86-4.86); Red Cell Distribution Width 13.9 % (12.1-15.2)
[2024-07-25 23:00] LABS: PT Prothrombin Time 12.8 SECONDS (10.0-13.0); Protime INR 1.13
[2024-07-25 23:11] LABS: ALT/SGPT 23 U/L (13-56); AST/SGOT 16 U/L (15-37); Albumin 3.3 g/dL (3.4-5.0); Albumin/Globulin Ratio 0.8 (1.1-1.8); Alkaline Phosphatase 126 U/L (45-117); Anion Gap 8.6 mEq/L (5.0-15.0); BUN Blood Urea Nitrogen 15 mg/dL (7-18); Bicarbonate 28 mEq/L (21-32); Bilirubin Total 0.6 mg/dL (0.2-1.0); Globulin 3.9 g/dL (2.3-3.5); Glomerular Filtration Rate 70 ml/min (=/>90); Glucose Level 137 mg/dL (74-106); Magnesium 2.2 mg/dL (1.6-2.4); NT PRO-BNP 19 pg/mL (<125); Potassium 3.6 mEq/L (3.5-5.1); Protein, Total 7.2 g/dL (6.4-8.2); Sodium Level 138 mEq/L (136-145)
[2024-07-25 23:16] LABS: Bilirubin Direct < 0.2 mg/dL (0-0.2); Bilirubin Indirect, Calculated 0.4 mg/dL (0.2-0.8); Troponin High Sensitivity < 3.0 pg/mL (<58.9)
[2024-07-26] MEDS ORDERED: KETOROLAC 30 MG/ML INJ ONE (00:08)
--- NOTE | 2024-07-26 02:36 | RAD REPORT ---
CLINICAL HISTORY: Chest pain. COMPARISON: XR Chest 07/25/2024. TECHNIQUE: CT CHEST ANGIOGRAPHY WITH IV CONTRAST on 07/26/2024 12:03 AM CHUMMER. MIPS reconstructions were generated. This exam was performed according to our departmental dose-optimization program, which includes autom ated exposure control, adjustment of the mA and/or kV according to patient size and/or use of iterative reconstruction technique. MIP images were generated. FINDINGS: Thoracic aorta is normal in course and caliber without aneurysm or dissection. Pulmonary arteries are adequately opacified without acute or chronic filling defects. The heart is normal in size. There is no pericardial effusion. Intrathoracic lymph nodes are not enla rged. There is no pleural effusion, pleural thickening or pneumothorax. Central airways are patent. Lungs a re clear with no consolidation, mass or interstitial lung disease. There are no acute abnormalities within the limited images of the upper abdomen. There are no acute osseous findings. No suspicious bony lesions. IMPRESSION: No aortic dissection or aneurysm. No pulmonary embolus. No pneumonia. Electronically signed by: Nehemiah Mendosa MD 07/26/2024 02:32 AM CHUMMER RP Due to temporary technical issues with the PACS/ICEX reporting system, reports are being del d by the in-house radiologist without review as a courtesy to ensure prompt reporting the interpreting radiologist is fully responsible for the content of the report. Transcribed Date/Time: 07/26/2024 2:36 AM
--- NOTE | 2024-07-26 02:45 | ER ---
Nurse's Notes [facility] Name: Yuridia Wynne Age: 59 yrs Sex: Female : 1965 Arrival Date: 07/25/2024 Time: 22:25 Bed 11 Private MD: Diagnosis: Chest pain, resolved Presentation: 07/25 22:31 Chief complaint: Patient states: midsternal chest pain that radiates to mid upper back, me1 7/10. SOB with pain. Coronavirus screen: Vaccine status: Patient reports being unvaccinated. Ebola Screen: No symptoms or risks identified at this time. Initial Sepsis Screen: Does the patient meet any 2 criteria? HR > 90 bpm. Does the patient have a suspected source of infection? No. Patient's initial sepsis screen is negative. Risk Assessment: Do you want to hurt yourself or someone else? Patient reports no desire to harm self or others. Onset of symptoms was July 24, 2024. 22:31 Method Of Arrival: Ambulatory me1 22:31 Acuity: MDEINA 3 me1 Historical: - Allergies: 22:33 No Known Allergies; me1 - PMHx: 22:33 Anxiety; depressive disorder; Hypercholesterolemia; Hypothyroidism; me1 - PSHx: 22:33 Appendectomy; section; Cholecystectomy; me1 - Immunization history:: Adult Immunizations up to date. - Infectious Disease History:: Denies. - Social history:: Smoking status: Patient denies any tobacco usage or history of. Screenin:40 Abuse screen: Denies threats or abuse. Denies injuries from another. ha1 22:40 [facility] ED Fall Risk Assessment (Adult) History of falling in the last 3 months, ha1 including since admission No falls in past 3 months (0 pts) Confusion or Disorientation No (0 pts) Intoxicated or Sedated Impaired Gait No (0 pts) Mobility Assist Device Used No (0 pt) Altered Elimination No (0 pt) Score/Fall Risk Level 0 - 2 = Low Risk Oriented to surroundings, Maintained a safe environment, Educated pt \T\ family on fall prevention, incl call for assistance when getting out of bed, Hourly rounding (assess needs \T\ fall precautionary measures) done. Nutritional screening: No deficits noted. Tuberculosis screening: No symptoms or risk factors identified. Assessment: 22:50 General: Appears uncomfortable, Behavior is calm, cooperative. Pain: Complains of pain ha1 in chest Pain radiates to neck Pain currently is 8 out of 10 on a pain scale. Quality of pain is described as pressure, Pain began gradually. Neuro: Level of Consciousness is awake, alert, obeys commands, Oriented to person, place, time, situation. Cardiovascular: Capillary refill < 3 seconds Patient's skin is warm and dry. Cardiovascular: Heart tones S1 S2 present Rhythm is sinus rhythm. Respiratory: Airway is patent Respiratory effort is even, unlabored, Respiratory pattern is regular, symmetrical. GI: No signs and/or symptoms were reported involving the gastrointestinal system. Abdomen is round non-distended, obese. Musculoskeletal: Circulation, motion, and sensation intact. Range of motion: intact in all extremities, Reports pain in back. 23:50 Reassessment: Patient and/or family updated on plan of care and expected duration. Pain ha1 level reassessed. Patient is alert, oriented x 3, equal unlabored respirations, skin warm/dry/pink. 07/26 01:00 Reassessment: Patient and/or family updated on plan of care and expected duration. Pain ha1 level reassessed. Patient is alert, oriented x 3, equal unlabored respirations, skin warm/dry/pink. Patient denies pain at this time. 02:00 Reassessment: Patient and/or family updated on plan of care and expected duration. Pain ha1 level reassessed. Patient is alert, oriented x 3, equal unlabored respirations, skin warm/dry/pink. 03:00 Reassessment: Patient and/or family updated on plan of care and expected duration. Pain ha1 level reassessed. Patient is alert, oriented x 3, equal unlabored respirations, skin warm/dry/pink. Vital Signs: 07/25 22:31 BP 136 / 77; Pulse 98; Resp 17; Temp 98.6; Pulse Ox 97% ; Weight 117.93 kg; Height 5 me1 ft. 3 in. ; Pain 7/10; 23:50 BP 104 / 59; Pulse 74; Resp 17 S; Pulse Ox 98% on R/A; ha1 07/26 01:30 BP 115 / 78; Pulse 81; Resp 17 S; Pulse Ox 98% on R/A; ha1 03:00 BP 118 / 69; Pulse 74; Resp 17 S; Temp 97.4(T); Pulse Ox 100% on R/A; ha1 07/25 22:31 Body Mass Index 46.06 (117.93 kg, 160.02 cm) me1 07/25 22:31 Pain Scale: [place] [facility] [place] Course: 07/25 22:27 Patient arrived in ED. jj6 22:29 Fritz Hassan MD is Attending Physician. sp3 22:33 Triage completed. me1 22:33 Arm band placed on Patient placed in waiting room. me1 22:39 EKG done, by ED staff, reviewed by Fritz Hassan MD. me1 22:40 Client placed on continuous cardiac and pulse oximetry monitoring. NIBP monitoring ha1 applied. potline monitor on. 22:40 Patient has correct armband on for positive identification. Placed in gown. Bed in low ha1 position. Call light in reach. Side rails up X 1. Adult w/ patient. Provided Education on: PLAN OF CARE . 22:44 Inserted saline lock: 20 gauge in left antecubital area, using aseptic technique. Blood kmf collected. Flushed with 10 mL NS. 22:44 Basic Metabolic Panel Sent. kmf 22:44 CBC with Diff Sent. kmf 22:44 LFT's Sent. kmf 22:44 Magnesium Sent. kmf 22:44 NT PRO-BNP Sent. kmf 22:44 PT-INR Sent. kmf 22:44 Troponin HS Sent. kmf 22:44 Initial lab(s) drawn, by ga, sent to lab. kmf 23:00 Patient maintains SpO2 saturation greater than 95% on room air. ha1 23:52 XRAY Chest (1 view) In Process Unspecified. EDMS 02 01:10 CT Chest For PE Angio In Process Unspecified. EDMS 02:26 Missed attempt(s): 20 gauge in left antecubital area. Bleeding controlled, band aid td1 applied, catheter tip intact. 02:44 Jonnathan Dean MD is Referral Physician. sp3 03:00 No provider procedures requiring assistance completed. ha1 03:00 IV discontinued, intact, bleeding controlled, No redness/swelling at site. Pressure ha1 dressing applied. Administered Medications: 00:17 Drug: Ketorolac IVP 30 mg IVP once Route: IVP; Site: left antecubital; ha1 01:00 Follow up: Response: No adverse reaction; Marked relief of symptoms; Pain is decreased ha1 Medication: 07/25 22:40 VIS not applicable for this client. ha1 Outcome: 07/26 02:45 Discharge ordered by . sp3 03:30 Condition: stable ha1 03:30 Discharged to home ambulatory, with family, ha1 03:30 Discharge instructions given to patient, family, Instructed on discharge instructions, follow up and referral plans. Demonstrated understanding of instructions, follow-up care, 03:36 Patient left the ED. ha1 Signatures: Dispatcher [employer] Fritz Irby MD MD sp3 Elisabet Maki jj6 Zo Leonard RN RN ha1 Nieves Gauthier RN RN ga1 Paola Olson Aly Nix td1 Corrections: (The following items were deleted from the chart) 06:02 01:00 Reassessment: Patient and/or family updated on plan of care and expected ha1 duration. Pain level reassessed. Patient is alert, oriented x 3, equal unlabored respirations, skin warm/dry/pink. ha1
--- NOTE | 2024-07-26 02:45 | EDPHYS ---
Physician Documentation [facility] Name: Yuridia Wynne Age: 59 yrs Sex: Female : 1965 Arrival Date: 07/25/2024 Time: 22:25 Bed 11 Private MD: ED Physician Fritz Hassan HPI: 07/25 22:30 This 59 yrs old Female presents to ER via Unassigned with complaints of Chest sp3 Pain, Neck and Upper Back Pain. 22:30 59-year-old female with history of hyperlipidemia, hypothyroidism presents ED with sp3 chief complaint chest pain that started yesterday evening while "wrestling around in bed". Patient states that the chest pain radiated to her back which is what concerned her. Past surgical history includes cholecystectomy, appendectomy, hysterectomy. Patient states the chest pain is still there but very mild and decreased in nature from the maximum. She denies any trauma, travel history, fever, headache, neck pain, shortness of breath, abdominal pain, vomit, diarrhea, syncope, near syncope, focal neurological deficit, bleeding, rash, or any other signs or symptoms on ROS at this time.. Historical: - Allergies: 22:33 No Known Allergies; me1 - PMHx: 22:33 Anxiety; depressive disorder; Hypercholesterolemia; Hypothyroidism; me1 - PSHx: 22:33 Appendectomy; section; Cholecystectomy; me1 - Immunization history:: Adult Immunizations up to date. - Infectious Disease History:: Denies. - Social history:: Smoking status: Patient denies any tobacco usage or history of. ROS: 07/26 00:05 Constitutional: Negative for fever, chills, and weight loss, Eyes: Negative for injury, sp3 pain, redness, and discharge, ENT: Negative for injury, pain, and discharge, Neck: Negative for injury, pain, and swelling, Respiratory: Negative for shortness of breath, cough, wheezing, and pleuritic chest pain, Abdomen/GI: Negative for abdominal pain, nausea, vomiting, diarrhea, and constipation, MS/Extremity: Negative for injury and deformity, Skin: Negative for injury, rash, and discoloration, Neuro: Negative for headache, weakness, numbness, tingling, and seizure, Psych: Negative for depression, anxiety, suicide ideation, homicidal ideation, and hallucinations, Allergy/Immunology: Negative for hives, rash, and allergies, Endocrine: Negative for neck swelling, polydipsia, polyuria, polyphagia, and marked weight changes, Hematologic/Lymphatic: Negative for swollen nodes, abnormal bleeding, and unusual bruising, All other systems are negative, Exam: 00:05 Constitutional: This is a well developed, well nourished patient who is awake, alert, sp3 and in no acute distress. Head/Face: Normocephalic, atraumatic. Eyes: Pupils equal round and reactive to light, extra-ocular motions intact. Lids and lashes normal. Conjunctiva and sclera are non-icteric and not injected. Cornea within normal limits. Periorbital areas with no swelling, redness, or edema. ENT: Nares patent. No nasal discharge, no septal abnormalities noted. External auditory canals are clear. Oropharynx with no redness, swelling, or masses, exudates, or evidence of obstruction, uvula midline. Mucous membranes moist. Neck: Trachea midline, no thyromegaly or masses palpated, and no cervical lymphadenopathy. Supple, full range of motion without nuchal rigidity, or vertebral point tenderness. No Meningismus. Chest/axilla: Normal chest wall appearance and motion. Nontender with no deformity. No lesions are appreciated. Cardiovascular: Regular rate and rhythm with a normal S1 and S2. No gallops, murmurs, or rubs. Normal PMI, no JVD. No pulse deficits. Respiratory: Lungs have equal breath sounds bilaterally, clear to auscultation and percussion. No rales, rhonchi or wheezes noted. No increased work of breathing, no retractions or nasal flaring. Abdomen/GI: Soft, non-tender, with normal bowel sounds. No distension or tympany. No guarding or rebound. No evidence of tenderness throughout. Back: No spinal tenderness. No costovertebral tenderness. Full range of motion. Skin: Warm, dry with normal turgor. Normal color with no rashes, no lesions, and no evidence of cellulitis. MS/ Extremity: Pulses equal, no cyanosis. Neurovascular intact. Full, normal range of motion. Neuro: Awake and alert, GCS 15, oriented to person, place, time, and situation. Cranial nerves II-XII grossly intact. Motor strength 5/5 in all extremities. Sensory grossly intact. Cerebellar exam normal. Normal gait. Psych: Awake, alert, with orientation to person, place and time. Behavior, mood, and affect are within normal limits. 00:05 ECG was reviewed by the Attending Physician. EKG demonstrates normal sinus rhythm at 95 bpm with normal intervals, normal QRS, normal axis, normal ST/T-segment's without evidence of acute ischemia. Vital Signs: 07/25 22:31 BP 136 / 77; Pulse 98; Resp 17; Temp 98.6; Pulse Ox 97% ; Weight 117.93 kg; Height 5 me1 ft. 3 in. ; Pain 7/10; 23:50 BP 104 / 59; Pulse 74; Resp 17 S; Pulse Ox 98% on R/A; ha1 07/26 01:30 BP 115 / 78; Pulse 81; Resp 17 S; Pulse Ox 98% on R/A; ha1 03:00 BP 118 / 69; Pulse 74; Resp 17 S; Temp 97.4(T); Pulse Ox 100% on R/A; 1 07/25 22:31 Body Mass Index 46.06 (117.93 kg, 160.02 cm) nj1 07/25 22:31 Pain Scale: Adult me1 MDM: 07/25 22:29 Medical Screening Exam initiated sp3 07/26 00:06 Data reviewed: vital signs, nurses notes, lab test result(s), EKG, radiologic studies. sp3 ED course: 59-year-old female with new chest pain. Differential diagnosis includes acute coronary syndrome, musculoskeletal pain, and to lesser degree PE, aortic pathology, pleurisy, other pulmonary pathology, among others. Hematology suspicious of sepsis, shock, pneumonia or any other critical process. Workup will include EKG which is already performed and normal, general labs including troponin, CT chest PE protocol. If workup negative and second troponin negative, we will safely discharge patient home to cardiology outpatient follow-up for continued monitoring, management and probable stress test.. 02:43 ED course: CT negative for PE, aortic dissection or any other abnormality. Once second sp3 troponin negative we will discharge patient home to PCP follow-up.. 07/25 22:29 Order name: Basic Metabolic Panel; Complete Time: 23:43 sp3 07/25 22:29 Order name: CBC with Diff; Complete Time: 23:43 sp3 07/25 22:29 Order name: LFT's; Complete Time: 23:43 sp3 07/25 22:29 Order name: Magnesium; Complete Time: 23:43 sp3 07/25 22:29 Order name: NT PRO-BNP; Complete Time: 23:43 sp3 07/25 22:29 Order name: PT-INR; Complete Time: 23:43 sp3 07/25 22:29 Order name: Troponin HS; Complete Time: 23:43 3 07/26 00:03 Order name: Troponin High Sensitivity: Repeat -- Draw now; Complete Time: 03:13 sp3 07/25 22:29 Order name: XRAY Chest (1 view) sp3 07/26 00:03 Order name: CT Chest For PE Angio sp3 07/25 22:29 Order name: Cardiac monitoring; Complete Time: 23:55 sp3 07/25 22:29 Order name: EKG - Nurse/Tech; Complete Time: 22:39 sp3 07/25 22:29 Order name: IV Saline Lock; Complete Time: 23:55 sp3 07/25 22:29 Order name: Labs collected and sent; Complete Time: 23:55 sp3 07/25 22:29 Order name: O2 Per Protocol; Complete Time: 23:55 sp3 07/25 22:29 Order name: O2 Sat Monitoring; Complete Time: 23:55 sp3 Administered Medications: 00:17 Drug: Ketorolac IVP 30 mg IVP once Route: IVP; Site: left antecubital; ha1 01:00 Follow up: Response: No adverse reaction; Marked relief of symptoms; Pain is decreased ha1 Disposition Summary: 07/26/24 02:45 Discharge Ordered Notes: Location: Home sp3 Condition: Stable sp3 Diagnosis - Chest pain, resolved sp3 Followup: sp3 - With: Private Physician - When: Upon discharge from the Emergency Department - Reason: If symptoms return Followup: sp3 - With: Jonnathan Dean MD - When: Upon discharge from the Emergency Department - Reason: Continuance of care Discharge Instructions: - Discharge Summary Sheet sp3 - Nonspecific Chest Pain, Adult sp3 Forms: - Medication Reconciliation Form sp3 - Antibiotic Education sp3 - Prescription Opioid Use sp3 - Patient Portal Instructions sp3 - Leadership Thank You Letter sp3 Signatures: Dispatcher [employer] Fritz Irby MD MD sp3 Zo Leonard RN RN ha1 Nieves Gauthier, ROOSEVELT RN me1 Corrections: (The following items were deleted from the chart) 00:05 07/25 22:30 59-year-old female with history of hyperlipidemia, hypothyroidism presents sp3 ED with chief complaint chest pain. Past surgical history includes cholecystectomy, appendectomy, hysterectomy.. sp3 07/26 02:44 02:43 ED course: CT negative for PE, aortic dissection or any other abnormality. 1 sp3 second troponin negative we will discharge patient home to PCP follow-up.. sp3
[2024-07-26 03:41] VITALS: TEMP 98.6
[2024-07-26 03:43] VITALS: BP 104/59; O2SAT 98
--- NOTE | 2024-07-26 05:54 | RAD REPORT ---
EXAM DESCRIPTION: XR CHEST 1 VIEW CLINICAL HISTORY: 59 years Female Chest pain. COMPARISON: None. TECHNIQUE: 1 view study of the chest was performed. FINDINGS: Cardiac size is within normal limits. Central vessels are not increased. No infiltrates or effusions seen. No consolidation. No pneumothorax. IMPRESSION: No active disease. Electronically signed by: Milena Trevino MD 07/26/2024 12:24 AM [facility] Due to temporary technical issues with the [employer] reporting system, reports are being del d by the in-house radiologist without review as a courtesy to ensure prompt reporting the interpreting radiologist is fully responsible for the content of the report. Transcribed Date/Time: 07/26/2024 5:54 AM
--- NOTE | 2024-07-28 16:56 | EKG ---
Test Date: 2024-07-25 Test Time: 22:38:13 Product Demonstrator: MEASUREMENT RESULTS: Intervals: Rate: 95 VA: 140 QRSD: 76 QT: 354 QTc: 444 Oil Trough: P: 71 VA: 140 QRS: 7 T: 67 INTERPRETIVE STATEMENTS: Normal sinus rhythm Normal ECG No previous ECG available for comparison Electronically Signed On 07-28-24 16:47:23 ER MEDICAL TECHNICIAN by Serjio Dong
== END 2024-07-26 03:36 | disposition home or self-care (01) ==
LOC: ER 22:25
DX: R07.9 Chest pain, unspecified (principal); M54.9 Dorsalgia, unspecified; M54.2 Cervicalgia
CPT/HCPCS: 93005; 85025; 80048; 36415; 83735; 85610; 80076; 84484 ×2; 83880; 71275; 71045; 96374; 99285; Q9967